=== PATIENT | female | born 1990 | race Caucasian/White ===

== ENCOUNTER → 2018-04-11 14:52 | Outpatient (CLI) | payer MEDICAID, SELFPAY ==
[2018-04-11 16:26] LABS: Basophils % 0.4 % (0.1-2.0); Eosinophils # 0.2 K/mm3 (0.0-0.4); Hematocrit 38.1 % (37.0-47.0); Hemoglobin 12.3 g/dL (12.2-16.2); Lymphocytes # 1.1 K/mm3 (0.7-4.5); Lymphocytes % 21.3 % (10-50); Mean Corpuscular HGB Conc 32.2 g/dL (31.8-35.4); Mean Corpuscular Volume 89.9 fl (81-99); Mean Platelet Volume 7.1 fl (7.4-10.4); Monocytes # 0.3 K/mm3 (0.1-1.0); Monocytes % 4.8 % (1.7-9.3); Neutrophils # 3.8 K/mm3 (1.8-7.8); Neutrophils % 70.5 % (37.0-80.0); Platelet Count 230 K/mm3 (142-424); Red Blood Count 4.23 M/mm3 (4.20-5.40); Red Cell Distribution Width 13.1 % (11.5-17.5); White Blood Count 5.4 K/mm3 (4.8-10.8)
[2018-04-11 17:12] LABS: Alanine Aminotransferase 25 U/L (12-78); Albumin Level 3.9 gm/dL (3.4-5.0); Albumin/Globulin Ratio 1.2 (1.1-1.8); Alkaline Phosphatase 47 U/L (46-116); Amylase 53 U/L (25-115); Anion Gap 14.4 mEq/L (5-15); Aspartate Amino Transferase 17 U/L (15-37); Bilirubin,Total 0.3 mg/dL (0.2-1.0); Blood Urea Nitrogen 14 mg/dL (7-18); Calcium 9.3 mg/dL (8.5-10.1); Carbon Dioxide 26 mmol/L (21.0-32.0); Chloride 104 mmol/L (98-107); Chol/HDL Ratio 2.2 (1-3.5); Cholesterol 177 mg/dL (140-200); Creatinine,Serum 0.76 mg/dL (0.55-1.02); Estimated Glomerular Filt Rate 89 ml/min (>60); GFR (African American) 108 ML/MIN (>60); Globulin 3.3 gm/dl (1.3-3.2); Glucose 82 mg/dL (74-106); HDL Cholesterol 80 mg/dL (29-89); LDL Cholesterol 91 mg/dL (0-130); Lipase 160 u/L (73-393); Potassium 4.4 mmoL/L (3.5-5.1); Sodium 140 mmol/L (136-145); T4 (Thyroxine) 8.9 ug/dl (4.7-13.3); Thyroid Stimulating Hormone 2.12 uIU/ml (0.358-3.740); Total Protein,Serum 7.2 gm/dL (6.4-8.2); Triglycerides 31 mg/dL (30-200); VLDL Cholesterol 6 mg/dL (0-40)
[2018-04-13 07:15] LABS: Hep A Ab, IgM Negative (Negative); Hepatitis B Core Antibody IgM Negative (Negative); Hepatitis B Surface Antigen Negative (Negative)
[2018-04-13 12:57] LABS: Hepatitis C Antibody <0.1 s/co ratio (0.0-0.9); Vitamin D 25 Hydroxy 47.4 ng/mL (30.0-100.0)
[2018-04-13 12:58] LABS: H. pylori Breath Test Negative (Negative)
== END ==
PROVIDERS: Visit Provider Nurse Practitioner Family
DX: R10.9 Unspecified abdominal pain (principal); R53.83 Other fatigue; Z11.59 Encounter for screening for other viral diseases; Z13.220 Encounter for screening for lipoid disorders
CPT/HCPCS: 36415; 80053; 80061; 80074; 82150; 82652; 83013; 83690; 84436; 84443; 85025

== ENCOUNTER → 2018-04-17 07:51 | Outpatient (CLI) | payer MEDICAID, SELFPAY ==
--- NOTE | 2018-04-17 07:52 | US_ITS ---
US abdomen limited HISTORY: ITS.REASON: abd pain ORDERING PHYSICIAN: Mini Flaherty PATIENT AGE: 28 years COMPARISON: None FINDINGS: PANCREAS:Unremarkable. No obvious mass or abnormal fluid collection. No ductal dilatation LIVER:No focal liver lesions demonstrated. Homogeneous echogenicity. No intrahepatic biliary ductal dilatation evident RIGHT KIDNEY:Unremarkable. Normal size and echogenicity. No hydronephrosis GALLBLADDER:Status post cholecystectomy. Common bile duct is normal at 3 mm. IMPRESSION: Prior cholecystectomy. Otherwise negative right upper quadrant ultrasound
== END ==
PROVIDERS: PCP Nurse Practitioner Family; Visit Provider Nurse Practitioner Family
DX: R10.9 Unspecified abdominal pain (principal)
CPT/HCPCS: 76700

== ENCOUNTER → 2018-08-26 11:21 | Outpatient (CLI) | payer MEDICAID, SELFPAY ==
--- NOTE | 2018-08-26 11:33 | XR_ITS ---
XR KUB HISTORY: Right flank pain ITS.REASON: pain ORDERING PHYSICIAN: Myriam Dial APRN PATIENT AGE: 28 years COMPARISON: None FINDINGS: The bowel gas pattern is unremarkable. No obvious obstruction.. No abnormal calcifications are evident. No obvious renal or ureteral calculi.. No acute bony anomalies evident. Multiple pelvic calcifications are present and may be due to phleboliths. A faint calcific density is present in the left mid abdominal region. This is felt to be somewhat more lateral than what one would expect for ureteral stone. This measures approximately 2 mm and could be due to ingested material or an artifact. Surgical clips present in the right upper quadrant and right lower quadrant. There is mild amount of retained colonic feces. IMPRESSION: Nonspecific non-acute findings
== END ==
PROVIDERS: PCP Emergency Medicine; Visit Provider Nurse Practitioner Family
DX: M54.9 Dorsalgia, unspecified (principal); R31.9 Hematuria, unspecified
CPT/HCPCS: 74018

== ENCOUNTER → 2019-01-07 08:23 | Outpatient (CLI) | payer MEDICAID, SELFPAY ==
--- NOTE | 2019-01-07 08:27 | MR_ITS ---
PROCEDURE: MR HEAD/BRAIN WO CON CLINICAL INDICATION: headache Severe headache with presyncope COMPARISON: [facility] MRI-BRAIN W/WO from 09/22/2015 TECHNIQUE: Routine multiplanar multi echo sequences are performed without gadolinium enhancement. FINDINGS: No midline shift, mass effect, intracranial hemorrhage, or hydrocephalus is evident. The cerebellopontine angle, cerebellum, and brainstem are unremarkable.. Small focus of increased T2 signal once again noted adjacent to the atrium of the left lateral ventricle unchanged. No new white matter hyperintensities are evident. May retention cyst is present in the right maxillary sinus with some mixed signal intensity. This measures 12 mm not significantly changed. There opacification of the posterior aspect of the left ethmoid sinus at 9 mm not significantly changed and could represent a small mucocele. The pituitary, optic chiasm, corpus callosum, and craniocervical junction have an unremarkable appearance. There is some minimal degenerative changes at C3-C4 with some borderline narrowing of the canal. MRI of the cervical spine may add further value. There may be some minimal contour deformity of the cord anteriorly at this level. IMPRESSION: 1. No acute intracranial findings with no significant change. 2. No change in the small periventricular T2 white matter hyperintensity along the atria of the left lateral ventricle. 3. Right maxillary retention cyst and possible small left ethmoid sinus mucocele unchanged 4. Minimal bulging of the disc at C3-C4 with borderline narrowing of the canal Dictated by: Patrice Ponce MD 01/08/2019 06:36 Electronically signed by Patrice Ponce MD in [place] 01/08/2019 06:38
== END ==
PROVIDERS: PCP Nurse Practitioner Family; Visit Provider Nurse Practitioner Family
DX: R51 Headache (principal)
CPT/HCPCS: 70551

== ENCOUNTER → 2019-01-15 12:49 | Outpatient (CLI) | payer MEDICAID, SELFPAY ==
--- NOTE | 2019-01-15 12:53 | XR_ITS ---
PROCEDURE: XR CERVICAL SPINE 5V CLINICAL INDICATION: bulging disc Neck pain, headache COMPARISON: MR HEAD/BRAIN WO CON from 01/07/2019 FINDINGS: There is slight reversal of the upper cervical lordosis at the C2-C3 level. Normal alignment. No fracture or dislocation. The disc spaces are well preserved. No obvious foraminal narrowing. No lytic or blastic change. IMPRESSION: Slight reversal of upper cervical lordosis otherwise negative cervical spine Dictated by: Patrice Ponce MD 01/15/2019 16:15 Electronically signed by Patrice Ponce MD in [place] 01/15/2019 16:15
== END ==
PROVIDERS: PCP Emergency Medicine; Visit Provider Nurse Practitioner Family
DX: M50.20 Other cervical disc displacement, unspecified cervical region (principal)
CPT/HCPCS: 72050

== ENCOUNTER 2019-02-20 08:00 | Outpatient (RCR) | payer MEDICAID, SELFPAY ==
--- NOTE | 2019-01-24 10:08 | HMH.PTOPEV ---
PT Outpatient Evaluation Rehab PT Outpatient Evaluation Start: 01/24/19 09:28 Freq: Status: Active Protocol: Document 01/24/19 09:58 KRAIG (Rec: 01/24/19 10:08 KRAIG [id number]) Electronically Signed By Jeff Bauer, PT 01/24/19 09:58 Outpatient Therapy Subjective History Subjective History Pt rpeorts h/o chronic neck pain and cervicogenic NIEVES's since 2016. Pt reports no injury history, but reports exacerbation over of s/s over the last ~2 months. Pt reports L>R sided neck pain, 'fairly constant' NIEVES's, and intermittent L UE radicular s/ s (thumb). Chief Complaint Pain,Paresthesia Symptom Type Ache,Dull,Numbness,Tingling Symptoms Relieved By Rest/Positioning Symptoms Aggravated By Lifting Prior Functional Limitations Lifting,Housework,Bending/ Stooping Current Functional Limitations Lifting,Housework,Bending/ Stooping Symptom Description Constant but Variable Level of pain today (0-10) 5 Pain scale - at its best (0-10) 3 Pain scale - at its worst (0-10) 8 Cervical Eval Palpation Cervical Muscles L Cervical Paraspinal,L Suboccipital,R CT Junction,L CT Junction,L Upper Trapezius Cervical/Thoracic Palpation Findings Tenderness,Trigger Point Posture Head/C-Spine Posture Sitting Position Flexed Head/C-Spine Posture Standing Position Neutral Position Flexibility Deficits Upper Trapezius Muscle Length (L) Moderate Tightness Levaetor Scapulae Muscle Length (L) Mild Tightness Scalene Group Muscle Length (L) Moderate Tightness Pectoralis Minor Muscle Length (R) Mild Tightness,(L) Mild Tightness Passive Joint Mobility Cervical PIVM WNL: R OA L OA R AA L AA R C2/3 L C2/3 R C3/4 L C3/4 R C4/5 L C4/5 R C5/6 L C5/6 R C6/7 L C6/7 R C7/T1 L C7/T1 AROM Cervical Spine Extension Active Range of 0-5 Motion (degrees)
== END 2019-02-20 08:05 | disposition home or self-care (01) ==
LOC: PT 08:00
PROVIDERS: Visit Provider Nurse Practitioner Family
DX: M54.2 Cervicalgia (principal)
CPT/HCPCS: 97010; 97012; 97014; 97035; 97110; 97140; 97163; G0283

== ENCOUNTER → 2019-07-01 16:54 | Outpatient (CLI) | payer MEDICAID, SELFPAY | PROVIDERS: Visit Provider Nurse Practitioner Family | DX: R10.9 Unspecified abdominal pain (principal) | CPT/HCPCS: 87086 ==

== ENCOUNTER 2019-08-04 19:32 | Emergency (ER) | payer MEDICAID, SELFPAY ==
[2019-08-04 19:33] VITALS: BP 142/86; PULSE 97; RESP 18; TEMP 36.8; O2SAT 100; BMI 23.8
--- NOTE | 2019-08-04 19:40 | XR_ITS ---
PROCEDURE: XR FOOT RT MIN 3V CLINICAL INDICATION: injury Right foot pain after twisting injury COMPARISON: No exams were available for comparison FINDINGS: No fracture or dislocation. No lytic or blastic change. There is normal mineralization. The joint spaces are well-preserved. No significant degenerative/arthritic changes. No erosive changes evident. Other findings:None. IMPRESSION: No acute findings. Dictated by: Dr. Gopal Trejo MD 08/05/2019 07:[address] Gopal Trejo MD in [place] 08/05/2019 07:14
--- NOTE | 2019-08-04 19:41 | XR_ITS ---
PROCEDURE: XR ANKLE RT MIN 3V CLINICAL INDICATION: injury Right ankle pain after twisting injury COMPARISON: No exams were available for comparison FINDINGS: The medial and lateral malleolus appear intact. The ankle mortise is normal. There is no soft tissue swelling. IMPRESSION: No acute findings. Dictated by: Dr. Gopal Trejo MD 08/05/2019 07:[address] Gopal Trejo MD in [place] 08/05/2019 07:15
--- NOTE | 2019-08-04 19:47 | HMH.EDUTC ---
[facility] Disposition Clinical Impression: Foot sprain Qualifiers: Encounter type: initial encounter Laterality: right Qualified Code(s): S93.601A - Unspecified sprain of right foot, initial encounter Ankle sprain Qualifiers: Encounter type: initial encounter Involved ligament of ankle: unspecified ligament Laterality: right Qualified Code(s): S93.401A - Sprain of unspecified ligament of right ankle, initial encounter Disposition: Home, Self-Care Condition on Discharge: Good Instructions: How To Perform RICE (Rest, Ice, Compress, Elevate), Sprain, How to Use Crutches, How to Use a Walking Boot Additional Instructions: *RICE, Rest the extremity, Ice 15-20 minutes 3-4 times daily, Compress- wear the gerardo wrap as discussed as much as possible to help reduce swelling and pain, Elevate the extremity when at rest *Gerardo wrap is for support and help control swelling, use it except in the shower. Be sure that is not to tight but not to loose either *Elevate when resting *Ibuprofen 600-800mg every 6-8 hours as needed for pain an inflammation. If need something more can take Tylenol in between doses of Ibuprofen to help Immediately follow up with your family doctor for new or worsening of symptoms, or no noticeable improvement over the next 3-5 days Call back to [facility] tomorrow for official Radiology reading of your xray Follow up with Dr Almendarez if no improvement or any worsening of symptoms Return if needed Straight to ER if any life threatening symptoms Referrals: Mini Flaherty APRN [Primary Care Provider] - As needed Anita Almendarez DPM [Staff Physician] - As needed (Call office for appointment) Time of Disposition: 20:17 Medical Decision Making - Darshan Inquiry Pt receiving controlled substance: No Darshan was queried for this patient: No Vital Signs: 08/04/19 19:33 Temperature 98.2 F Temperature Source Oral Pulse Rate [Right] 97 H Respiratory Rate 18 Blood Pressure [Right Arm] 142/86 H Blood Pressure Mean [Right Arm] 104 02 Sat by Pulse Oximetry 100 Orders (Tests/Meds): ORDERS Category Date Time Status Ankle XR -Right minimum 3 Views [XR ankle RT min 3V] Exams 08/04/19 19:41 Ordered Stat Foot XR right minimum 3 views [XR foot RT min 3V] Stat Exams 08/04/19 19:40 Ordered - Radiology Data #1 Image(s): Ankle, Foot/Toes Image Reviewed: Yes I reviewed the patient's radiology image No fracture, will place in walking boot and crutches and have patient call back to [facility] tomorrow for official Radiology reading of xray and follow up with Dr Almendarez - Reevaluation(s) Time: 19:56 Reevaluation #1: Xray notified of order for xray,awaiting patient to go to xray [facility] HPI - General Stated complaint: AO jumped in pool possible broken R foot 1600 Time Seen by Provider: 08/04/19 19:47 Mode of Arrival: Ambulatory Limitations: No Limitations Description of Symptoms (Recalled from Triage Doc. by RN): Injury to right foot and ankle HEENT Symptoms (Recalled from RN notes): No Resp Symptoms (Recalled from RN notes): No Skin Symptoms (Recalled from RN notes): No MS Symptoms (Recalled from RN notes): No Functional Status (Recalled from RN notes): na - History of Present Illness Provider Complaint: Patient state that she was playing around with her kids earlier and she jumped into the pool with them and she felt a sharp pain in her foot and ankle States that ever since she has been having pain in the top of her foot and ankle area States that accident happened around 2pm and she has been limping around on thinking it would be ok but was still having pain - Related Data Home Medications Medication Instructions Recorded Confirmed polyethylene glycol 3350 17 17 g PO DAILY 04/01/19 07/01/19 gram/dose oral powder Previous Rx's Medication Instructions Recorded fluticasone propionate 50 1 spray INTRANASAL DAILY #9.9 g 02/21/19 mcg/actuation nasal spray,suspension cephalexin 500 mg capsule 500 mg PO BID 10 D
[2019-08-04 20:19] VITALS: BP 140/80; PULSE 90; RESP 20; TEMP 36.6; O2SAT 98
== END 2019-08-04 20:29 | disposition home or self-care (01) ==
PROVIDERS: Emergency Provider Nurse Practitioner; PCP Nurse Practitioner Family
DX: S93.601A Unspecified sprain of right foot, initial encounter (principal); X50.9XXA Other and unspecified overexertion or strenuous movements or postures, initial encounter; Y93.39 Activity, other involving climbing, rappelling and jumping off; Y92.016 Swimming-pool in single-family (private) house or garden as the place of occurrence of the external cause
CPT/HCPCS: 29515; 73610; 73630; 99203

== ENCOUNTER 2019-08-13 17:02 | Emergency (ER) | payer MEDICAID, SELFPAY ==
[2019-08-13 17:13] VITALS: BP 126/77; PULSE 73; RESP 16; TEMP 37.2; O2SAT 98; BMI 23.8
--- NOTE | 2019-08-13 17:18 | HMH.EDUTC ---
[facility] [place] Disposition Clinical Impression: Eye problem Disposition: Home, Self-Care Condition on Discharge: Good Instructions: Gentamicin Ophthalmic Additional Instructions: Use eye drops as prescribed Follow up with Dr Hawley at [facility] if no improvement or immediately if any worsening of symptoms Return if needed Straight to ER if any life threatening symptoms Prescriptions: Gentamicin Sulfate [Garamycin 0.3% opth briseida 5mL] 1 - 2 ml EYE-RIGHT Q4H #1 ml Transmission Status: Pending to [facility] Referrals: Mini Flaherty APRN [Primary Care Provider] - As needed Jose Hawley [Other] - As needed Time of Disposition: 17:43 Medical Decision Making - Darshan Inquiry Pt receiving controlled substance: No Darshan was queried for this patient: No Vital Signs: 08/13/19 17:13 Temperature 99.0 F Temperature Source Oral Pulse Rate [Right Brachial] 73 Respiratory Rate 16 Blood Pressure [Right Arm] 126/77 Blood Pressure Mean [Right Arm] 93 Blood Pressure Source [Right Arm] Automatic Cuff Blood Pressure Position [Right Arm] Sitting 02 Sat by Pulse Oximetry 98 Oxygen Delivery Method Room Air - Physician Consults Physician Consulted: Marleen Time: 17:34 Reason -: Opthalmology Eval/Care Comment/Response: advised start her on Gent drops q 4h then have her follow up in the clinic if no improvement [facility] [place] HPI - General Stated complaint: AO 0603@1630 FB in R Eye Time Seen by Provider: 08/13/19 17:19 Mode of Arrival: Ambulatory Source of Information: Patient Limitations: No Limitations Description of Symptoms (Recalled from Triage Doc. by RN): PT advises she thought she had a contact stuck in her eye. Right eye appears to have a bubble on the side of her eye. Denies any problems with her vision. Just says her eye is itching HEENT Symptoms (Recalled from RN notes): Yes (possible ulcer in her eye) Resp Symptoms (Recalled from RN notes): No Skin Symptoms (Recalled from RN notes): No MS Symptoms (Recalled from RN notes): No Functional Status (Recalled from RN notes): na - History of Present Illness Provider Complaint: Patient state that she was outside watching the kids play when she started having an itching like feeling in her right eye in the corner States that shortly after the eye looked red and watery and she noticed a bubble like ulceration in the corner of her right eye States that she had her mom look at it and they was worried that it was a contact stuck and tried to dig it out and made it worse States that she called her eye doctor but they was closed so she came up to have it checked Denies changes in vision denies injury - Related Data Home Medications Medication Instructions Recorded Confirmed polyethylene glycol 3350 17 17 g PO DAILY 04/01/19 07/01/19 gram/dose oral powder Previous Rx's Medication Instructions Recorded fluticasone propionate 50 1 spray INTRANASAL DAILY #9.9 g 02/21/19 mcg/actuation nasal spray,suspension Gentamicin Sulfate [Garamycin 0.3% 1 - 2 ml EYE-RIGHT Q4H #1 ml 08/13/19 opth briseida 5mL] Allergies Allergy/AdvReac Type Severity Reaction Status Date / Time No Known Allergies Allergy Verified 08/13/19 17:17 - Worker's Comp Is this a Worker's Comp case?: No [facility] History - Hepatitis A Screen Drug use history?: No High risk sexual behaviors?: No History of sexually transmitted infection?: No Currently employed?: No Childcare worker?: No Do you have indoor plumbing?: Yes Do you have electricity?: Yes Attestation statement:: This patient has been screened for Hepatitis A risk factors. I have reviewed the patient's past medical history: Yes Medical History: Denies:: Cancer, Diabetes Mellitus Type 1, Diabetes Mellitus Type 2, MRSA Other Surgeries: Yes: Cholecystectomy, , Other Amputation: No Fractures: Yes Comment: Cyst removed from right axillary - Social History Smoking Status: Never smoker Alcohol Intake: never Substance
--- NOTE | 2019-08-13 17:18 | PC.NURSE ---
Bijal placed a call to Dr. Hawley
--- NOTE | 2019-08-13 17:19 | PC.NURSE ---
Bijal speaking with Dr. Hawley
[2019-08-13 17:47] VITALS: BP 126/77; PULSE 73; RESP 16; TEMP 37.2; O2SAT 98
== END 2019-08-13 17:50 | disposition home or self-care (01) ==
PROVIDERS: Emergency Provider Nurse Practitioner; PCP Nurse Practitioner Family
DX: H16.001 Unspecified corneal ulcer, right eye (principal); Z90.49 Acquired absence of other specified parts of digestive tract
CPT/HCPCS: 99201

== ENCOUNTER → 2019-11-26 13:29 | Outpatient (CLI) | payer MEDICAID, SELFPAY ==
--- NOTE | 2019-11-26 13:36 | US_ITS ---
PROCEDURE: US OB TRANSVAGINAL CLINICAL INDICATION: missed period Positive urine test COMPARISON: No exams were available for comparison FINDINGS: The uterus is 9 x 4 by 6 cm. The endometrium is 8 mm in thickness. No intrauterine gestational sac is evident. The left ovary contains a 3 x 3.8 cm complex cyst with internal septations. There are multiple follicles of the right ovary. No cul-de-sac fluid is evident. IMPRESSION: 1. No intrauterine gestational sac evident. 2. Complex left ovarian cyst at 3.8 cm with internal septations Dictated by: Patrice Ponce MD 11/26/2019 16:13 Patrice Ponce MD in [place] 11/26/2019 16:13
[2019-11-26 13:51] LABS: Basophils % 0.5 % (0.1-2.0); Eosinophils # 0.1 K/mm3 (0.0-0.4); Hematocrit 37.3 % (37.0-47.0); Hemoglobin 12.8 g/dL (12.2-16.2); Lymphocytes % 19.8 % (10-50); Mean Corpuscular HGB Conc 34.4 g/dL (31.8-35.4); Mean Corpuscular Hemoglobin 30.8 pg (27.0-31.2); Mean Corpuscular Volume 89.5 fl (81-99); Mean Platelet Volume 7.3 fl (7.4-10.4); Monocytes # 0.3 K/mm3 (0.1-1.0); Monocytes % 4.9 % (1.7-9.3); Neutrophils # 3.6 K/mm3 (1.8-7.8); Neutrophils % 72.8 % (37.0-80.0); Platelet Count 220 K/mm3 (142-424); Red Blood Count 4.17 M/mm3 (4.20-5.40); Red Cell Distribution Width 13.9 % (11.5-17.5)
[2019-11-26 14:31] LABS: Alanine Aminotransferase 14 U/L (12-78); Albumin Level 4.3 g/dl (3.5-5.0); Albumin/Globulin Ratio 1.5 (1.1-1.8); Alkaline Phosphatase 43 U/L (38-126); Aspartate Amino Transferase 24 U/L (14-36); Bilirubin,Total 0.4 mg/dl (0.2-1.3); Blood Urea Nitrogen 13 mg/dl (7-17); Calcium 9.3 mg/dl (8.4-10.2); Carbon Dioxide 26 mmol/L (22.0-30.0); Chloride 104 mmol/L (98-107); Chol/HDL Ratio 1.9 (1-3.5); Cholesterol 177 mg/dl (140-200); Estimated Glomerular Filt Rate 98 ml/min (>60); GFR (African American) 118 ML/MIN (>60); Globulin 2.8 g/dL (1.3-3.2); Glucose 109 mg/dl (74-100); HDL Cholesterol 91 mg/dl (40-60); Sodium 140 mmol/L (136-145); Total Protein,Serum 7.1 g/dl (6.3-8.2); Triglycerides 31 mg/dl (30-150); VLDL Cholesterol 6 mg/dL (0-40)
[2019-11-26 14:43] LABS: Direct LDL Cholesterol 82.21 mg/dL (100-129)
[2019-11-26 14:50] LABS: HCG,Quantitative < 2 mIU/ml (0-5.42); T4 (Thyroxine) 8.1 ug/dl (5.53-11.0)
[2019-11-26 15:03] LABS: Thyroid Stimulating Hormone 1.55 uIU/mL (0.465-4.68)
== END ==
PROVIDERS: Visit Provider Nurse Practitioner Family
DX: N92.6 Irregular menstruation, unspecified (principal); R11.0 Nausea; R53.83 Other fatigue; R10.9 Unspecified abdominal pain; Z98.51 Tubal ligation status
CPT/HCPCS: 36415; 76817; 80053; 80061; 82306; 84436; 84443; 84702; 85025

== ENCOUNTER 2020-01-11 10:27 | Emergency (ER) | payer MEDICAID, SELFPAY ==
[2020-01-11 11:00] VITALS: BP 124/71; PULSE 79; RESP 19; TEMP 36.9; O2SAT 97; BMI 23.8
--- NOTE | 2020-01-11 11:22 | HMH.EDUTC ---
[facility] [place] Disposition Clinical Impression: Viral upper respiratory infection Disposition: Home, Self-Care Condition on Discharge: Good Instructions: Sore Throat, Preventing the Spread of Coronavirus Discharge Instructions Additional Instructions: *Monitor Temp, Over the counter Motrin or Tylenol as directed/as needed Tylenol every 4 hours and Motrin every 6 hours (as long as your family doctor has told you that you can take it) for fever or pain. and straight to ER if unable to lower temp less than 101.0 after medication given *Warm salt water gargles may help to soothe the throat *Throat Lozenges *Warm fluids like tea with honey may help to soothe the throat *Sleep elevated *Humidifier/Vaporizer Your throat swab was sent for culture. Those results are typically sent to your primary care. Be sure to follow up in 2-3 days with your family doctor/primary care physician if no improvement so they can review those result and treat if necessary. If you don?t have a primary care doctor, I recommend you get one but in the mean time, you will have to return to a walk in clinic Follow up IMMEDIATELY for new or worsening symptoms or no Noticeable improvement over the next 48-72 hours. 911 for difficulty breathing or swallowing You was tested for today for COVID19 your test result should be back later this evening, you may call back later this evening to see if your test results are back and the result You was given a handout with instructions for Self Quarantine and Self isolation for while you wait on test results and what to do if they are positive Referrals: Mini Flaherty APRN [Primary Care Provider] - As needed Forms: Work/School Release Time of Disposition: 11:25 Medical Decision Making - Darshan Inquiry Pt receiving controlled substance: No Darshan was queried for this patient: No Vital Signs: 01/11/20 11:00 Temperature 98.4 F Temperature Source Oral Pulse Rate [Radial] 79 Respiratory Rate 19 Blood Pressure [Right Arm] 124/71 Blood Pressure Mean [Right Arm] 88 Blood Pressure Source [Right Arm] Automatic Cuff Blood Pressure Position [Right Arm] Sitting 02 Sat by Pulse Oximetry 97 Oxygen Delivery Method Room Air - Lab Data Lab results reviewed: Yes: I reviewed the patient's lab results. Orders (Tests/Meds): ORDERS Category Date Time Status Covid-19 Nasal PCR ([facility]) Routine Lab 01/11/20 11:00 Received [facility] [place] HPI - General Stated complaint: sore throat Time Seen by Provider: 01/11/20 11:22 Mode of Arrival: Ambulatory Source of Information: Patient Limitations: No Limitations Description of Symptoms (Recalled from Triage Doc. by RN): sore throat and left ear pain x 3 days. wants tested for covid HEENT Symptoms (Recalled from RN notes): Yes Resp Symptoms (Recalled from RN notes): No Skin Symptoms (Recalled from RN notes): No MS Symptoms (Recalled from RN notes): No Functional Status (Recalled from RN notes): wnl - History of Present Illness Provider Complaint: Patient states that she has been having sore throat and pain and pressure like feeling in her left ear States that she was worried that she may have strep throat or COVID States that she also wants to get checked for COVID - Related Data Home Medications Medication Instructions Recorded Confirmed No Known Home Medications 11/26/19 11/26/19 Allergies Allergy/AdvReac Type Severity Reaction Status Date / Time No Known Allergies Allergy Verified 11/26/19 11:21 - Worker's Comp Is this a Worker's Comp case?: No [facility] History - Hepatitis A Screen Drug use history?: No High risk sexual behaviors?: No History of sexually transmitted infection?: No Currently employed?: No Childcare worker?: No Do you have indoor plumbing?: Yes Do you have electricity?: Yes Attestation statement:: This patient has been screened for Hepatitis A risk factors. I have reviewed the patient's past medical history: Yes Medical History: Denies:: Zahra
[2020-01-11 11:39] VITALS: BP 124/71; PULSE 79; RESP 19; TEMP 36.9; O2SAT 97
[2020-01-11 16:39] LABS: UTC Strep Screen (Rapid) Negative (Negative)
== END 2020-01-11 11:40 | disposition home or self-care (01) ==
PROVIDERS: Emergency Provider Nurse Practitioner; PCP Nurse Practitioner Family
DX: Z20.828 Contact with and (suspected) exposure to other viral communicable diseases (principal); J06.9 Acute upper respiratory infection, unspecified
CPT/HCPCS: 87880; 99202; U0003

== ENCOUNTER 2020-02-15 11:05 | Emergency (ER) | payer MEDICAID, SELFPAY ==
[2020-02-15 11:40] VITALS: BP 136/82; PULSE 77; RESP 20; TEMP 36.7; O2SAT 98; BMI 24.6
--- NOTE | 2020-02-15 12:14 | HMH.EDUTC ---
[facility] [place] Disposition Clinical Impression: Sore throat, Viral upper respiratory infection Disposition: Home, Self-Care Condition on Discharge: Good Instructions: DI for Viral Upper Respiratory Infection -- Adult Additional Instructions: No sign of a bacterial infection. Likely viral. Viruses can take 7-14 days to run their course. Nasal saline and bulb syringe or nose Montserrat to remove nasal drainage to help with nasal congestion. Hard to eat, drink, sleep with nasal congestion so important to keep this cleaned out. Monitor temp. Tylenol or Motrin as needed for pain or fever Encourage fluids, water, Gatorade, Powerade, Pedialyte if /toddler/child Warm salt water gargles Warm fluids Sore throat lozenges Sleep elevated Humidifier/vaporizer Your throat swab was sent for culture. covid swab sent These results are typically sent to the primary care. Be sure you follow-up in 2-3 days if no improvement so we can review the results and treat if necessary Follow-up immediately for new or worsening symptoms or no noticeable improvement over the next 48-72 hours. Referrals: Mini Flaherty APRN [Primary Care Provider] - Time of Disposition: 12:17 Medical Decision Making - Dasrhan Inquiry Pt receiving controlled substance: No Vital Signs: 02/15/20 11:40 Temperature 98.1 F Temperature Source Oral Pulse Rate [Right Brachial] 77 Respiratory Rate 20 Blood Pressure [Right Arm] 136/82 Blood Pressure Mean [Right Arm] 100 Blood Pressure Source [Right Arm] Automatic Cuff Blood Pressure Position [Right Arm] Sitting 02 Sat by Pulse Oximetry 98 Oxygen Delivery Method Room Air [facility] [place] HPI - General Chief complaint: Urgent Treatment Center Stated complaint: low grade fever, headache, sore throat Time Seen by Provider: 02/15/20 12:14 Mode of Arrival: Ambulatory Source of Information: Patient Limitations: No Limitations Description of Symptoms (Recalled from Triage Doc. by RN): PATIENT C/O SORE THROAT, HEADACHE, CHEST CONGESTION WITH BURNING FEELING, AND LOW-GRADE FEVER SINCE SUNDAY HEENT Symptoms (Recalled from RN notes): Yes Resp Symptoms (Recalled from RN notes): Yes Skin Symptoms (Recalled from RN notes): No MS Symptoms (Recalled from RN notes): No Functional Status (Recalled from RN notes): WNL - History of Present Illness Provider Complaint: 29 yr old female presnts for sore throat,fever and headache since sunday. pt states at times her chest feels like it is burning, denies any other symptoms - Related Data Home Medications Medication Instructions Recorded Confirmed No Known Home Medications 11/26/19 11/26/19 Allergies Allergy/AdvReac Type Severity Reaction Status Date / Time No Known Allergies Allergy Verified 11/26/19 11:21 - Worker's Comp Is this a Worker's Comp case?: No [facility] History - Hepatitis A Screen Drug use history?: No High risk sexual behaviors?: No History of sexually transmitted infection?: No Currently employed?: No Childcare worker?: No Do you have indoor plumbing?: Yes Do you have electricity?: Yes Attestation statement:: This patient has been screened for Hepatitis A risk factors. I have reviewed the patient's past medical history: Yes Medical History: Denies:: Cancer, Diabetes Mellitus Type 1, Diabetes Mellitus Type 2, MRSA Other Surgeries: Yes: Cholecystectomy, , Other Amputation: No Fractures: Yes Comment: Cyst removed from right axillary - Social History Smoking Status: Never smoker Alcohol Intake: never Substance Use Type: denies use Occupational Status: other Housing: house Household Members: spouse Family Hx:: Cancer, Asthma ROS Obtained: Yes Systems reviewed as appropriate & no additional complaints - Constitutional Constitutional: Reports system reviewed and no additional complaints, except as docu, Reports body ache, Reports fever(s) - Eyes Eyes: Reports system reviewed and no additional complaints, except as docu - ENT Ears, Nose, Mo
[2020-02-15 12:30] VITALS: BP 136/82; PULSE 77; RESP 20; TEMP 36.7; O2SAT 98
[2020-02-15 19:30] LABS: UTC Strep Screen (Rapid) Negative (Negative)
[2020-02-15 19:31] LABS: UTC Influenza A Antigen Negative (Negative); UTC Influenza B Antigen Negative (Negative)
--- NOTE | 2020-02-15 21:16 | PC.NURSE ---
UNABLE TO REACH PATIENT BY PHONE TO GIVE POSITIVE COVID RESULTS. MESSAGE LEFT FOR NEXT SHIFT TO NOTIFY
== END 2020-02-15 12:32 | disposition home or self-care (01) ==
PROVIDERS: Emergency Provider Nurse Practitioner Family; PCP Nurse Practitioner Family
DX: U07.1 COVID-19 (principal)
CPT/HCPCS: 87804; 87880; 99202; U0003

== ENCOUNTER → 2020-04-02 14:18 | Outpatient (CLI) | payer MEDICAID, SELFPAY | PROVIDERS: Visit Provider Nurse Practitioner Family | DX: R10.9 Unspecified abdominal pain (principal); N39.0 Urinary tract infection, site not specified | CPT/HCPCS: 87086 ==

== ENCOUNTER → 2020-04-15 16:51 | Outpatient (CLI) | payer MEDICAID, SELFPAY | PROVIDERS: Visit Provider Nurse Practitioner Family | DX: R10.9 Unspecified abdominal pain (principal) | CPT/HCPCS: 87086 ==

== ENCOUNTER 2020-04-30 11:52 | Emergency (ER) | payer MEDICAID, SELFPAY ==
[2020-04-30 11:53] VITALS: BP 132/48; PULSE 87; RESP 16; TEMP 36.7; O2SAT 99; BMI 25.6
[2020-04-30 12:07] VITALS: BMI 25.6
--- NOTE | 2020-04-30 12:09 | CT_ITS ---
PROCEDURE: CT ABDOMEN PELVIS WO CON CLINICAL INDICATION: flank pain Bilateral flank pain COMPARISON: US ABDCM US abdomen complete from 04/17/2018 US US OB TRANSVAGINAL from 11/26/2019 TECHNIQUE: Axial images obtained with sagittal and coronal reformats. All CT scans at the facility use one or more dose reduction, viz: automated exposure control, ma/kV adjustment per patient size (including targeted exams where dose is matched to indication, i.e. head), or iterative reconstruction technique. FINDINGS: LOWER THORAX: No acute finding ABDOMEN & PELVIS: There is no intra-abdominal free air. There is a small amount of free fluid in the cul-de-sac within normal limits for a patient of reproductive age. Patient had prior cholecystectomy. There is a 1-2 millimeter nonobstructing right renal stone. The ureters are poorly visualized due to paucity of retroperitoneal fat. There is no right or left hydroureter. There is no obstructing left ureteral stone. Nonspecific 2 to 3 mm calcifications in the pelvis cannot be specifically localized, but cause no visible hydroureter. Correlate with urinalysis and clinical findings. The remaining solid abdominal organs have a normal appearance. There is a probable enlarged left ovary. The right ovary is not definitely identified on this unenhanced CT. Remaining pelvic organs have an unremarkable unenhanced appearance. There are scattered diverticuli in the sigmoid colon. There is no CT evidence of acute diverticulitis. There is no abdominal or pelvic adenopathy there is diffuse straightening of the normal lordosis of the lumbar spine suggesting significant muscle spasm. IMPRESSION: 1. Probable enlarged left ovary, small but normal amount of fluid in the cul-de-sac. 2. Scattered tiny calcifications which measure up to 3 millimeters in diameter without evidence of hydroureter or hydronephrosis, correlate with urinalysis and clinical findings. 3. Lumbar muscle spasm. Dictated by: Ginette Thomsa MD 04/30/2020 13:31 Ginette Thomas MD in [place] 04/30/2020 13:31
--- NOTE | 2020-04-30 12:21 | HMH.EDGENADL ---
ED Disposition Clinical Impression: Back pain Qualifiers: Back pain location: low back pain Chronicity: acute Back pain laterality: bilateral Sciatica presence: without sciatica Qualified Code(s): M54.5 - Low back pain Ovarian cyst Qualifiers: Laterality: left Qualified Code(s): N83.202 - Unspecified ovarian cyst, left side Disposition: Home, Self-Care Condition on Discharge: Good Instructions: DI for Low Back Pain, DI for Ovarian Cyst Additional Instructions: Follow-up with your primary care provider in the office, call for appointment. Tylenol or ibuprofen for pain. Referrals: Mini Flaherty APRN [Primary Care Provider] - - Critical Care Critical Care Time: No Attestation: On 04/30/20, the high probability of a clinically significant, sudden or life threatening deterioration of the following system(s) required my full and direct attention, intervention and personal management. The time I documented below is in addition to time spent performing reported procedures but includes the following listed in this critical care notation. Medical Decision Making - Darshan Inquiry Pt receiving controlled substance: No Vital Signs: 04/30/20 11:53 Temperature 98.1 F Temperature Source Oral Pulse Rate [Right Radial] 87 Respiratory Rate 16 Blood Pressure [Right Arm] 132/48 L Blood Pressure Mean [Right Arm] 76 Blood Pressure Source [Right Arm] Automatic Cuff Blood Pressure Position [Right Arm] Sitting 02 Sat by Pulse Oximetry 99 Oxygen Delivery Method Room Air - Lab Data Lab Results 04/30/20 11:58: Urine HCG, Qual Negative 04/30/20 12:10: WBC 5.0, RBC 4.43, Hgb 13.0, Hct 40.2, MCV 90.6, MCH 29.3, MCHC 32.4, RDW 13.5, Plt Count 230, MPV 7.2 L, Neut % (Auto) 71.6, Lymph % (Auto) 20.0, Falls % (Auto) 5.0, Eos % (Auto) 2.5, Baso % (Auto) 0.8, Neut # (Auto) 3.6, Lymph # (Auto) 1.0, Falls # (Auto) 0.3, Eos # (Auto) 0.1, Baso # (Auto) 0.0 04/30/20 12:10: Sodium 137, Potassium 4.2, Chloride 109 H, Carbon Dioxide 25, Anion Gap 7.2, BUN 12, Creatinine 0.70, Estimated Creat Clear 116, Estimated GFR 97, Est GFR ( Amer) 117, Glucose 96, Calcium 9.6, Total Bilirubin 0.5, AST 31, ALT 15, Alkaline Phosphatase 47, Total Protein 7.8, Albumin 4.4, Globulin 3.4 H, Albumin/Globulin Ratio 1.3 04/30/20 12:17: Urine Color Yellow, Urine Appearance Sl cloudy, Urine pH 6.0, Ur Specific Cassatt 1.025, Urine Protein Negative, Urine Glucose (UA) Negative, Urine Ketones Negative, Urine Blood Trace-i, Urine Nitrate Negative, Urine Bilirubin Negative, Urine Urobilinogen 0.2, Ur Leukocyte Esterase Trace, Urine WBC 5-10, Ur Squamous Epith Cells 10-20, Urine Bacteria 2+, Urine Mucus 1+ Result diagrams: 04/30/20 12:10 04/30/20 12:10 Orders (Tests/Meds): ORDERS Category Date Time Status CT abdomen pelvis wo con Stat Cat Scan 04/30/20 12:09 Taken Urine Culture Stat Micro 04/30/20 12:17 Received - CT Data CT Scan: Abdomen, Pelvis Time Received: 13:14 ([facility] fax) ED CT Reviewed: Yes: I have viewed the radiologist's interpretation Findings Narrative: 2.8 cm left ovarian cyst which is similar to the finding noted on the prior pelvic ultrasound. Small amount of nonspecific free fluid in the pelvis which may represent ovarian cyst leak or rupture. No other acute changes in the abdomen or pelvis. No hydronephrosis, no stone. General Adult HPI - General Chief complaint: PAIN Stated complaint: upper back and right side pain Time Seen by Provider: 04/30/20 12:21 Mode of Arrival: Ambulatory Limitations: No Limitations Description of Symptoms (Recalled from ER Triage Doc. by RN): Pt sent from pcp office for kidney stone r/o. Pt reports christo flank pain, frequent urination and blood in urine. Pt reports was treated for a uti approx 3 weeks ago, but continues to have blood in urine, flank pain and frequent urinations. - History of Present Illness HPI narrative: States that she has been having some problems with back pain in her lower th
[2020-04-30 12:24] LABS: Microscopic, Urine URINE MICROSCOPIC (MICROSCOPIC)
[2020-04-30 12:29] LABS: Urine Pregnancy, HCG Qual. Negative (Negative)
--- NOTE | 2020-04-30 12:30 | PC.NURSE ---
Patient to CT
[2020-04-30 12:31] LABS: Appearance,Urine SL CLOUDY (Clear); Bilirubin,Urine Negative (Negative); Blood, Urine TRACE-I (Negative); Color,Urine YELLOW (Yellow); Glucose,Urine (UA) Negative (Negative); Ketones,Urine Negative (Negative); Leukocyte Esterase,Urine TRACE (Negative); Nitrate,Urine Negative (Negative); Protein,Urine Negative (Negative); Specific Gravity, Urine 1.025 (1.005-1.030); Urobilinogen,Urine 0.2 EU/dl (0.2)
[2020-04-30 12:36] LABS: Chloride 109 mmol/L (98-107); Potassium 4.2 mmoL/L (3.5-5.1); Sodium 137 mmol/L (136-145)
[2020-04-30 12:36] LABS: Bacteria,Urine 2+ /lpf; Mucus,Urine 1+ /lpf
[2020-04-30 12:39] LABS: Alanine Aminotransferase 15 U/L (12-78); Albumin Level 4.4 g/dl (3.5-5.0); Albumin/Globulin Ratio 1.3 (1.1-1.8); Alkaline Phosphatase 47 U/L (38-126); Anion Gap 7.2 mEq/L (5-15); Aspartate Amino Transferase 31 U/L (14-36); Bilirubin,Total 0.5 mg/dl (0.2-1.3); Blood Urea Nitrogen 12 mg/dl (7-17); Calcium 9.6 mg/dl (8.4-10.2); Carbon Dioxide 25 mmol/L (22.0-30.0); Creatinine Clearance Estimated 116 mL/min (50-200); Estimated Glomerular Filt Rate 97 ml/min (>60); GFR (African American) 117 ML/MIN (>60); Globulin 3.4 g/dL (1.3-3.2); Glucose 96 mg/dl (74-100); Total Protein,Serum 7.8 g/dl (6.3-8.2)
[2020-04-30 12:49] LABS: Basophils % 0.8 % (0.1-2.0); Eosinophils # 0.1 K/mm3 (0.0-0.4); Eosinophils % 2.5 % (0.1-12.0); Hematocrit 40.2 % (37.0-47.0); Mean Corpuscular HGB Conc 32.4 g/dL (31.8-35.4); Mean Corpuscular Hemoglobin 29.3 pg (27.0-31.2); Mean Corpuscular Volume 90.6 fl (81-99); Mean Platelet Volume 7.2 fl (7.4-10.4); Monocytes # 0.3 K/mm3 (0.1-1.0); Neutrophils # 3.6 K/mm3 (1.8-7.8); Neutrophils % 71.6 % (37.0-80.0); Platelet Count 230 K/mm3 (142-424); Red Blood Count 4.43 M/mm3 (4.20-5.40); Red Cell Distribution Width 13.5 % (11.5-17.5)
[2020-04-30 13:32] VITALS: BP 115/74; PULSE 71; RESP 18; TEMP 36.7; O2SAT 100
== END 2020-04-30 13:32 | disposition home or self-care (01) ==
PROVIDERS: Emergency Provider Emergency Medicine; PCP Nurse Practitioner Family
DX: N83.202 Unspecified ovarian cyst, left side (principal); N30.00 Acute cystitis without hematuria
CPT/HCPCS: 74176; 80053; 81001; 81025; 85025; 87086; 99283

== ENCOUNTER → 2020-04-30 16:20 | Outpatient (CLI) | payer MEDICAID, SELFPAY | PROVIDERS: Visit Provider Nurse Practitioner Family | DX: N20.9 Urinary calculus, unspecified (principal) | CPT/HCPCS: 87086 ==

== ENCOUNTER → 2020-05-05 08:17 | Outpatient (CLI) | payer MEDICAID, SELFPAY | PROVIDERS: Visit Provider Nurse Practitioner Family | DX: R10.9 Unspecified abdominal pain (principal) ==

== ENCOUNTER 2020-08-06 09:02 | Emergency (ER) | payer MEDICAID, SELFPAY ==
[2020-08-06 09:13] VITALS: BP 111/74; PULSE 67; RESP 17; TEMP 36.7; O2SAT 100; BMI 24.7
[2020-08-06 09:19] VITALS: BP 111/74; PULSE 67; RESP 17; TEMP 36.7; O2SAT 100
--- NOTE | 2020-08-06 09:21 | HMH.EDUTC ---
[facility] [place] Disposition Clinical Impression: Poison fadumo dermatitis Disposition: Home, Self-Care Condition on Discharge: Good Instructions: Summertime Rashes: Poison [place], [place], and [place], Poisonous Plants: [place], [place], and [place]: Beware the Oils, Poison [place], Poison [place], Poison [place], DI for Poison [place] Allergy Additional Instructions: Soothing measure options: Oatmeal baths Cool, wet compresses Ice packs Topical menthol and phenol (calamine lotion) Start Oral Steriods tomorrow Make sure to bathe immediately when coming in from being in the weeds, do not take hot bath make sure the water is cool and rinse well Wash clothing immediately upon coming in and try to avoid touching them the oils from Poison Fadumo can get on our clothing and pets Return if needed Straight to ER if any life threatening symptoms Prescriptions: predniSONE [Prednisone 5mg Tab Dose-Pack] 5 mg PO UD DOSE PK 6 Days #21 pack Transmission Status: Received by [facility] Referrals: Mini Flaherty APRN [Primary Care Provider] - As needed Time of Disposition: 09:46 Medical Decision Making - Darshan Inquiry Pt receiving controlled substance: No Darshan was queried for this patient: No Vital Signs: 08/06/20 09:13 08/06/20 09:19 Temperature 98.1 F 98.1 F Temperature Source Oral Pulse Rate 67 Pulse Rate [Left] 67 Respiratory Rate 17 17 Blood Pressure 111/74 Blood Pressure [Right Arm] 111/74 Blood Pressure Mean [Right Arm] 86 02 Sat by Pulse Oximetry 100 Orders (Tests/Meds): ED MEDICATIONS Discontinued Medications Generic Name Dose Route Start Last Admin Trade Name Singh PRN Reason Stop Dose Admin Methylprednisolone Sodium Succinate 125 mg 08/06/20 09:25 08/06/20 09:29 Methylprednisolone Sod Succ 125mg Vial IM 08/06/20 09:26 125 mg ONCE ONE Administration [facility] [place] HPI - General Stated complaint: rash, possibly poison fadumo Time Seen by Provider: 08/06/20 09:19 Mode of Arrival: Ambulatory Source of Information: Patient Limitations: No Limitations Description of Symptoms (Recalled from Triage Doc. by RN): Pt states she has had poison fadumo for 3 days that has spread to her arms, legs and body. HEENT Symptoms (Recalled from RN notes): No Resp Symptoms (Recalled from RN notes): No Skin Symptoms (Recalled from RN notes): Yes MS Symptoms (Recalled from RN notes): No Functional Status (Recalled from RN notes): WNL - History of Present Illness Provider Complaint: Patient state that she was cleaning the weeds off her house the other day and then a couple days later she noticed she was starting to break out with poison fadumo State that it has continued to spread and now it has moved to her face so she came in to get treated State that last time she had to get steriods - Related Data Previous Rx's Medication Instructions Recorded predniSONE [Prednisone 5mg Tab 5 mg PO UD DOSE PK 6 Days #21 pack 08/06/20 Dose-Pack] Allergies Allergy/AdvReac Type Severity Reaction Status Date / Time No Known Allergies Allergy Verified 08/06/20 09:19 - Worker's Comp Is this a Worker's Comp case?: No [facility] History - Hepatitis A Screen Drug use history?: No High risk sexual behaviors?: No History of sexually transmitted infection?: No Currently employed?: No Childcare worker?: No Do you have indoor plumbing?: Yes Do you have electricity?: Yes Attestation statement:: This patient has been screened for Hepatitis A risk factors. I have reviewed the patient's past medical history: Yes Medical History: Denies:: Cancer, Diabetes Mellitus Type 1, Diabetes Mellitus Type 2, MRSA Other Surgeries: Yes: Cholecystectomy, , Other Amputation: No Fractures: Yes Comment: Cyst removed from right axillary - Social History Smoking Status: Never smoker Alcohol Intake: never Alcohol Intake Frequency:: holidays/special occasions only Substance Use Type: denies use Occupational Status: other Housing: house Household [facility]
== END 2020-08-06 09:52 | disposition home or self-care (01) ==
PROVIDERS: Emergency Provider Nurse Practitioner; PCP Nurse Practitioner Family
DX: L23.7 Allergic contact dermatitis due to plants, except food (principal)
CPT/HCPCS: 96372; 99202; G0463

== ENCOUNTER → 2020-09-13 15:17 | Outpatient (CLI) | payer MEDICAID, SELFPAY ==
--- NOTE | 2020-09-13 15:45 | XR_ITS ---
PROCEDURE: XR ACUTE ABDOMEN SERIES CLINICAL INDICATION: abdl pain COMPARISON: No exams were available for comparison FINDINGS: Frontal view of the chest shows no acute finding. Upright and supine views of the abdomen demonstrates a clip in the right upper quadrant. There is a mild amount of retained colonic feces. There are few air-fluid levels within the large bowel. No intestinal obstruction or free air. No acute bony anomalies or abnormal calcifications. IMPRESSION: Mild amount of retained colonic feces otherwise negative Dictated by: Patrice Ponce MD 09/13/2020 16:28 Patrice Ponce MD in [place] 09/13/2020 16:28
[2020-09-13 15:49] LABS: Basophils % 0.5 % (0.1-2.0); Eosinophils # 0.1 K/mm3 (0.0-0.4); Eosinophils % 2.1 % (0.1-12.0); Hematocrit 38.8 % (37.0-47.0); Hemoglobin 12.6 g/dL (12.2-16.2); Lymphocytes # 0.7 K/mm3 (0.7-4.5); Lymphocytes % 18.5 % (10-50); Mean Corpuscular HGB Conc 32.5 g/dL (31.8-35.4); Mean Corpuscular Hemoglobin 29.2 pg (27.0-31.2); Monocytes # 0.2 K/mm3 (0.1-1.0); Monocytes % 6.2 % (1.7-9.3); Neutrophils # 2.7 K/mm3 (1.8-7.8); Neutrophils % 72.7 % (37.0-80.0); Platelet Count 238 K/mm3 (142-424); Red Blood Count 4.32 M/mm3 (4.20-5.40); Red Cell Distribution Width 13.4 % (11.5-17.5); White Blood Count 3.7 K/mm3 (4.8-10.8)
[2020-09-13 16:31] LABS: Chloride 106 mmol/L (98-107); Potassium 4.9 mmoL/L (3.5-5.1); Sodium 140 mmol/L (136-145)
[2020-09-13 16:34] LABS: Alanine Aminotransferase 12 U/L (12-78); Albumin Level 4.3 g/dl (3.5-5.0); Albumin/Globulin Ratio 1.6 (1.1-1.8); Alkaline Phosphatase 50 U/L (38-126); Amylase 48 U/L (30-110); Anion Gap 13.9 mEq/L (5-15); Aspartate Amino Transferase 22 U/L (14-36); Bilirubin,Total 0.3 mg/dl (0.2-1.3); Blood Urea Nitrogen 16 mg/dl (7-17); Calcium 9.1 mg/dl (8.4-10.2); Carbon Dioxide 25 mmol/L (22.0-30.0); Estimated Glomerular Filt Rate 83 ml/min (>60); GFR (African American) 101 ML/MIN (>60); Globulin 2.7 g/dL (1.3-3.2); Glucose 88 mg/dl (74-100); HDL Cholesterol 82 mg/dl (40-60); Lipase 104 U/L (23-300)
[2020-09-13 16:35] LABS: Chol/HDL Ratio 2.2 (1-3.5); Cholesterol 180 mg/dl (140-200); Triglycerides 107 mg/dl (30-150); VLDL Cholesterol 21 mg/dL (0-40)
[2020-09-13 16:46] LABS: Direct LDL Cholesterol 76.51 mg/dL (100-129)
[2020-09-13 17:05] LABS: Thyroid Stimulating Hormone 1.47 uIU/mL (0.465-4.68)
[2020-09-15 19:10] LABS: H. pylori Breath Test Negative (Negative)
== END ==
PROVIDERS: Visit Provider Physician Assistant
DX: R10.9 Unspecified abdominal pain (principal)
CPT/HCPCS: 36415; 74021; 80053; 80061; 82150; 83013; 83690; 84443; 85025

== ENCOUNTER 2020-09-13 18:50 | Emergency (ER) | payer MEDICAID, SELFPAY ==
[2020-09-13 19:01] VITALS: BP 117/73; PULSE 71; RESP 17; TEMP 36.2; O2SAT 98; BMI 23.1
--- NOTE | 2020-09-13 19:09 | CT_ITS ---
PROCEDURE INFORMATION: Exam: CT Abdomen And Pelvis With Contrast Exam date and time: 09/13/2020 7:09 PM Age: 30 years old Clinical indication: Abdominal pain; Localized; Right; Prior surgery; Surgery date: 6+ months; Surgery type: Gb , c section, tubal ligation; Patient HX: RT abdomen pain and mid abdomen pain; Additional info: Abd pain TECHNIQUE: Imaging protocol: Computed tomography of the abdomen and pelvis with contrast. Radiation optimization: All CT scans at this facility use at least one of these dose optimization techniques: automated exposure control; mA and/or kV adjustment per patient size (includes targeted exams where dose is matched to clinical indication); or iterative reconstruction. Contrast material: ISOVUE; Contrast volume: 75 ml; Contrast route: IV; Other contrast: Oral, gastroview, 30; COMPARISON: CT ABDOMEN PELVIS WO CON 04/30/2020 12:34 PM FINDINGS: Lungs: Lung bases are clear. Heart: Cardiac chambers are grossly normal. Liver: Mild hepatic steatosis. Gallbladder and bile ducts: Status post cholecystectomy. Pancreas: No peripancreatic inflammatory infiltration or fluid. No ductal dilation. Spleen: No splenomegaly or splenic mass. Adrenal glands: Normal. No mass. Kidneys and ureters: There is a tiny low-density lesion within the upper right kidney which is too small to characterize but may represent a cortical cyst. Both kidneys enhance symmetrically and I do not see nephrolithiasis or hydronephrosis. Stomach and bowel: No gastric wall thickening. No small or large bowel obstruction. No mucosal thickening or inflammatory infiltration. No convincing evidence diverticulitis. Appendix: No evidence of appendicitis. No appendicolith. Intraperitoneal space: There is a small amount of hyperdense free fluid in the posterior right hemipelvis (Hounsfield units: 27.0) which may be sequelae of a ruptured hemorrhagic ovarian cyst. There is no loculated fluid collection or free air. Vasculature: Punctate phleboliths are incidentally noted in the pelvis. Lymph nodes: No enlarged lymph nodes within the retroperitoneal space or mesentery. Urinary bladder: Unremarkable as visualized. Reproductive: The uterus and left ovary are grossly unremarkable. I suspect there is a small irregular hyperdense cyst in the right ovary. Bones/joints: Unremarkable. No acute fracture. No osteolytic or blastic bone lesions. Soft tissues: Paraspinous and extracorporeal soft tissues are unremarkable. IMPRESSION: 1. Small amount of hyperdense free fluid in the posterior right hemipelvis which may be physiologic from a recently ruptured hemorrhagic ovarian cyst. Clinical correlation advised. 2. Findings suggestive of an irregular small hyperdense right ovarian cyst. Further evaluation with a pelvic ultrasound might be considered. 3. Hepatic steatosis. 4. Status post cholecystectomy. COMMENTS: Consistent with the [employer]'s Incidental Findings Committee white paper (J Am Evi Radiol 2018): Any incidental renal lesion less than 1 cm or classified as too small to characterize, or any incidental cystic renal lesion characterized as simple-appearing, is likely benign. No follow-up imaging is recommended for these lesions per consensus recommendations based on imaging criteria.
--- NOTE | 2020-09-13 19:19 | HMH.EDABDPAI ---
ED Disposition Clinical Impression: Gastritis Qualifiers: Gastritis type: unspecified gastritis Chronicity: acute Gastritis bleeding: without bleeding Qualified Code(s): K29.00 - Acute gastritis without bleeding Disposition: Still a Patient Condition on Discharge: Good Instructions: DI for Acute Abdominal Pain Referrals: Mini Flaherty APRN [Primary Care Provider] - - Critical Care Critical Care Time: No Attestation: On 09/13/20, the high probability of a clinically significant, sudden or life threatening deterioration of the following system(s) required my full and direct attention, intervention and personal management. The time I documented below is in addition to time spent performing reported procedures but includes the following listed in this critical care notation. Medical Decision Making - Medical Records Medical records reviewed: Yes: I reviewed the patient's medical records. - Darshan Inquiry Pt receiving controlled substance: No Vital Signs: 09/13/20 19:01 Temperature 97.1 F L Temperature Source Oral Pulse Rate [Right Brachial] 71 Respiratory Rate 17 Blood Pressure [Right Arm] 117/73 Blood Pressure Mean [Right Arm] 87 Blood Pressure Source [Right Arm] Automatic Cuff Blood Pressure Position [Right Arm] Sitting 02 Sat by Pulse Oximetry 98 Oxygen Delivery Method Room Air - Lab Data Lab results reviewed: Yes: I reviewed the patient's lab results. Orders (Tests/Meds): ED MEDICATIONS Discontinued Medications Generic Name Dose Route Start Last Admin Trade Name Singh PRN Reason Stop Dose Admin Hydrocodone Bitart/Acetaminophen 1 tab 09/13/20 19:18 09/13/20 19:41 Hydrocodone/Apap 5/325 Mg Tablet PO 09/13/20 19:19 1 tab ONCE ONE Administration Belladonna Alkaloids 30 ml 09/13/20 19:18 09/13/20 19:41 Gi Cocktail 60ml Udc PO 09/13/20 19:19 30 ml ONCE ONE Administration ORDERS Category Date Time Status CT abdomen pelvis w con Stat Cat Scan 09/13/20 19:09 Ordered C-Reactive Protein Stat Lab 09/13/20 15:30 Received Erythrocyte Sedimentation Rate Stat Lab 09/13/20 15:30 Received Procalcitonin Stat Lab 09/13/20 15:30 Received Medical Decision Narrative: Lab results from today reviewed. Normal kidney and liver function. Lipase normal. No evidence of pancreatitis. Benign abdominal exam. Patient does have history of gastritis with a endoscopy about a year ago. She is not currently on any omeprazole or PPIs. Believe this is acute exacerbation of this. She does have history of a gallbladder removal. Given benign exam we will treat symptomatically and reassess. Abdominal Pain HPI - General Chief Complaint: Abdominal Pain Stated Complaint: Abd pain Time Seen by Provider: 09/13/20 19:10 Mode of Arrival: Family Vehicle Limitations: No Limitations Description of Symptoms (Recalled from ER Triage Doc. by RN): pt describes onset of abd pain that began last night [place] [employer]. patient states it began midepigastric and then radiated into LUQ and back across the top of her stomach. no n/v/d at this time. pt states she saw her pcp today and subsequently had lab work drawn afterwards, no radiological tests - History of Present Illness HPI narrative: 1-year-old female with history of gastritis, cholecystectomy and bilateral tubal ligation presents emergency department with 24 hours of epigastric abdominal pain. Pain is worse with eating. She was seen by her primary care provider earlier today with normal labs including lipase, liver function tests. Reports that she has taken Pepcid, Imodium and ibuprofen without improvement of symptoms. Symptoms are constant. Reports that it starts in the epigastric area but radiates diffusely. Had diarrhea yesterday but none today. No blood in stool. No vomiting, fever, chest pain, difficulty breathing. - Related Data Previous Rx's Medication Instructions Recorded diphenhydramine HCl 25 mg capsule 25 mg
[2020-09-13 19:47] LABS: Procalcitonin 0.071 ng/mL (0.0-2.0)
--- NOTE | 2020-09-13 19:59 | PC.NURSE ---
Pt completed oral contrast, radiology notified
[2020-09-13 20:00] VITALS: BP 120/72; PULSE 62; RESP 16; O2SAT 100
[2020-09-13 20:13] LABS: Erythrocyte Sedimentation Rate 20 mm/hr (0-20)
[2020-09-13 20:22] LABS: HCG Qualitative, Serum Negative (Negative)
[2020-09-13 21:00] VITALS: BP 118/69; PULSE 65; O2SAT 99
[2020-09-13 21:58] LABS: Microscopic, Urine URINE MICROSCOPIC (MICROSCOPIC)
[2020-09-13 22:00] VITALS: BP 108/73; PULSE 68; RESP 16; O2SAT 100
[2020-09-13 22:04] LABS: Appearance,Urine CLEAR (Clear); Bilirubin,Urine Negative (Negative); Blood, Urine TRACE-I (Negative); Color,Urine YELLOW (Yellow); Glucose,Urine (UA) Negative (Negative); Ketones,Urine Negative (Negative); Leukocyte Esterase,Urine Negative (Negative); Nitrate,Urine Negative (Negative); PH,Urine 5.5 (5.0-8.5); Protein,Urine Negative (Negative); Specific Gravity, Urine <= 1.005 (1.005-1.030); Urobilinogen,Urine 0.2 EU/dl (0.2)
[2020-09-13 22:13] LABS: Bacteria,Urine Trace /lpf; WBC,Urine Occasional #/hpf (0-3)
[2020-09-13 22:43] VITALS: BP 112/76; PULSE 77; RESP 16; TEMP 36.9; O2SAT 97
== END 2020-09-13 22:48 | disposition home or self-care (01) ==
PROVIDERS: Emergency Medicine; Emergency Provider Emergency Medicine; PCP Nurse Practitioner Family
DX: K29.00 Acute gastritis without bleeding (principal)
CPT/HCPCS: 74177; 81001; 84145; 84703; 85651; 86140; 96365; 96375; 99283; Q9967

== ENCOUNTER 2020-10-21 09:18 | Emergency (ER) | payer MEDICAID, SELFPAY ==
[2020-10-21 09:18] VITALS: BP 125/84; PULSE 78; RESP 18; TEMP 36.8; O2SAT 98; BMI 24.7
[2020-10-21 10:04] LABS: UTC Strep Screen (Rapid) Positive (Negative)
--- NOTE | 2020-10-21 10:18 | HMH.EDUTC ---
[facility] [place] Clinical Impression: Strep throat Disposition: Home, Self-Care Condition on Discharge: Good Instructions: DI for Strep Throat, Strep Throat, Strep Throat (Alternative Therapy), DI for COVID-19 (Suspected or Confirmed ), Preventing the Spread of Coronavirus Discharge Instructions Additional Instructions: *Monitor Temp, Over the counter Motrin or Tylenol as directed/as needed Tylenol every 4 hours and Motrin every 6 hours (as long as your family doctor has told you that you can take it) for fever or pain. and straight to ER if unable to lower temp less than 101.0 after medication given *Warm salt water gargles may help to soothe the throat *Throat Lozenges *Warm fluids like tea with honey may help to soothe the throat *Sleep elevated *Humidifier/Vaporizer *Flonase 2 sprays in each nostril daily but be aware that it may take 2-3 days before you notice improvement *If you did not take Penicillin shot or was unable to, start taking antibiotic immediately and make sure that you take it for the FULL length of time although you should start to feel better in 24-48 hours *change toothbrush and toothpaste 24-48 hours after starting to take antibiotics so you do not reinfect yourself Monitor Temp. Tylenol and/or Ibuprofen as needed. ER if fever is no less than 101 despite alternating Tylenol and Ibuprofen * Encourage fluids, water, Gatorade, powerade, pedialyte if infant/toddler/or child *Cold fluids, popsicles and ice cream may feel good on his throat Follow up IMMEDIATELY for new or worsening symptoms or no Noticeable improvement over the next 48-72 hours. 911 for difficulty breathing or swallowing You were tested for today for COVID19 your test result should be back in the next 24-48 hours, you may call to the [facility] to see if your test results are back in the next 48 hours [phone] [facility] hours are 9am-9pm You was given a handout with instructions for Self Quarantine and Self isolation for while you wait on test results and what to do if they are positive If you are positive the Health Dept will be contacting you also Prescriptions: Amoxicillin [Amoxicillin 500mg Cap] 500 mg PO TID #30 cap Transmission Status: [facility] Fluticasone Propionate [Flonase 50mcg nasal spray 16gm] 1 spr NS DAILY #1 ml Transmission Status: Pending to [facility] methylPREDNISolone [Medrol 4mg tab] 4 mg PO DIRECTED #21 tab Transmission Status: Pending to [facility] Referrals: Linda Block PA [Primary Care Provider] - As needed Forms: Work/School Release Time of Disposition: 10:23 Medical Decision Making - Darshan Inquiry Pt receiving controlled substance: No Darshan was queried for this patient: No Vital Signs: 10/21/20 09:18 Temperature 98.3 F Temperature Source Oral Pulse Rate [Left Radial] 78 Respiratory Rate 18 Blood Pressure [Right Arm] 125/84 Blood Pressure Mean [Right Arm] 97 Blood Pressure Source [Right Arm] Automatic Cuff Blood Pressure Position [Right Arm] Sitting 02 Sat by Pulse Oximetry 98 Oxygen Delivery Method Room Air - Lab Data Lab results reviewed: Yes: I reviewed the patient's lab results. Lab Results 10/21/20 09:43: Strep Scn Rapid Clinic Positive A Orders (Tests/Meds): ORDERS Category Date Time Status Covid-19 Nasal PCR ([facility]) Routine Lab 10/21/20 09:40 Received [facility] [place] HPI - General Stated complaint: covid test, symptoms Time Seen by Provider: 10/21/20 10:18 Mode of Arrival: Ambulatory Source of Information: Patient Limitations: No Limitations Description of Symptoms (Recalled from Triage Doc. by RN): c/o sore throat, pain in the head and congestion for 4 days HEENT Symptoms (Recalled from RN notes): Yes Resp Symptoms (Recalled from RN notes): No Skin Symptoms (Recalled from RN notes): No MS Symptoms (Recalled from RN notes): No Functional Status (Recalled from RN notes): na - History of Present Illness Provider Com
[2020-10-21 10:34] VITALS: BP 125/84; PULSE 78; RESP 18; TEMP 36.8; O2SAT 98
== END 2020-10-21 10:37 | disposition home or self-care (01) ==
PROVIDERS: Emergency Provider Nurse Practitioner; PCP Physician Assistant
DX: J02.0 Streptococcal pharyngitis (principal)
CPT/HCPCS: 87880; 99202; G0463; U0003

== ENCOUNTER 2020-11-01 12:52 | Emergency (ER) | payer MEDICAID, SELFPAY ==
[2020-11-01 14:36] VITALS: BP 0/0; PULSE 0; RESP 0; TEMP -17.7; TEMP 0; O2SAT 0
--- NOTE | 2020-11-01 14:36 | PC.NURSE ---
Called pt back to room, not here. Assume pt LWBS
== END 2020-11-01 14:37 | disposition left against medical advice (07) ==
PROVIDERS: Emergency Provider Nurse Practitioner Family; PCP Physician Assistant
DX: Z53.21 Procedure and treatment not carried out due to patient leaving prior to being seen by health care provider (principal)

== ENCOUNTER 2020-11-02 09:01 | Emergency (ER) | payer MEDICAID, SELFPAY ==
--- NOTE | 2020-11-02 09:32 | HMH.EDUTC ---
[facility] [place] Clinical Impression: Strep throat, Exposure to COVID-19 virus Disposition: Home, Self-Care Condition on Discharge: Good Instructions: Strep Throat, DI for Strep Throat, Preventing the Spread of Coronavirus Discharge Instructions Additional Instructions: Drink plenty of fluids. Take tylenol or ibuprofen for pain or fever. Take the medications as directed. Follow up with your regular doctor. GO TO THE ER FOR ANY WORSENING SYMPTOMS Throw your tooth brush away and get a new one. Quarantine until you know the results of your covid-19 test. If it is positive, the health department should call you and give you further instructions about your length of Quarantine and other things. Notify your school or workplace of your results and follow their instructions regarding return to work/school. Prescriptions: Ondansetron [Zofran 4mg ODT] 4 mg PO Q8HP PRN #20 tab.rapdis PRN Reason: Nausea Transmission Status: Received by [facility] Cefdinir [Omnicef 300mg Capsule] 300 mg PO BID #20 cap Transmission Status: Received by [facility] predniSONE [Prednisone 20mg Tab] 20 mg PO BID 4 Days #8 tab Transmission Status: Re[facility] by [facility] Referrals: Linda Block PA [Primary Care Provider] - Forms: Work/School Release Time of Disposition: 09:41 Medical Decision Making - Medical Records Medical records reviewed: No: I reviewed the patient's medical records. - Darshan Inquiry Pt receiving controlled substance: No Vital Signs: 11/02/20 09:34 11/02/20 10:16 Temperature 98.1 F 98 F Temperature Source Oral Pulse Rate 81 Pulse Rate [Left] 76 Respiratory Rate 16 18 Blood Pressure 0/0 L Blood Pressure [Right Arm] 125/70 Blood Pressure Mean [Right Arm] 88 02 Sat by Pulse Oximetry 98 - Lab Data Lab results reviewed: Yes: I reviewed the patient's lab results. Lab Results 11/02/20 09:37: Strep Scn Rapid Clinic Positive A [facility] [place] - General Stated complaint: covid-symtoms Time Seen by Provider: 11/02/20 09:32 - History of Present Illness Provider Complaint: She is here with c/o sore throat and fever. She had strep throat 2 weeks ago and was treated with antibiotics. She states that she got better, but then very similar symptoms returned 2 days ago. Her had covid-19 last week. She had covid-19 last january. She has not been vaccinated. - Related Data Previous Rx's Medication Instructions Recorded diphenhydramine HCl 25 mg capsule 25 mg PO HS #30 cap 08/10/20 famotidine 20 mg tablet 20 mg PO DAILY #30 tab 08/10/20 loratadine 10 mg tablet 10 mg PO DAILY #30 tab 08/10/20 Pantoprazole Sodium [Protonix 40mg 40 mg PO HS #30 tab 09/13/20 tablet] Amoxicillin [Amoxicillin 500mg 500 mg PO TID #30 cap 10/21/20 Cap] Fluticasone Propionate [Flonase 1 spr NS DAILY #1 ml 10/21/20 50mcg nasal spray 16gm] methylPREDNISolone [Medrol 4mg 4 mg PO DIRECTED #21 tab 10/21/20 tab] Cefdinir [Omnicef 300mg Capsule] 300 mg PO BID #20 cap 11/02/20 Ondansetron [Zofran 4mg ODT] 4 mg PO Q8HP PRN #20 tab.rapdis 11/02/20 predniSONE [Prednisone 20mg 20 mg PO BID 4 Days #8 tab 11/02/20 Tab] Allergies Allergy/AdvReac Type Severity Reaction Status Date / Time No Known Allergies Allergy Verified 09/13/20 14:36 [facility] History - Hepatitis A Screen Attestation statement:: This patient has been screened for Hepatitis A risk factors. I have reviewed the patient's past medical history: Yes Medical History: Denies:: Cancer, Diabetes Mellitus Type 1, Diabetes Mellitus Type 2, MRSA Other Surgeries: Yes: Cholecystectomy, , Other Amputation: No Fractures: Yes Comment: Cyst removed from right axillary - Social History Smoking Status: Never smoker Alcohol Intake: current Alcohol Intake Frequency:: holidays/special occasions only Substance Use Type: denies use Occupational Status: other
[2020-11-02 09:34] VITALS: BP 125/70; PULSE 76; RESP 16; TEMP 36.7; O2SAT 98; BMI 23.9
[2020-11-02 10:16] VITALS: BP 0/0; PULSE 81; RESP 18; TEMP 36.6
[2020-11-02 10:16] LABS: UTC Strep Screen (Rapid) Positive (Negative)
== END 2020-11-02 10:16 | disposition home or self-care (01) ==
PROVIDERS: Emergency Provider Nurse Practitioner Family; PCP Physician Assistant
DX: J02.0 Streptococcal pharyngitis (principal); U07.1 COVID-19
CPT/HCPCS: 87880; 99203; G0463; U0003

== ENCOUNTER → 2020-12-30 18:41 | Outpatient (CLI) | payer MEDICAID, SELFPAY ==
[2020-12-30 19:03] LABS: Basophils % 0.3 % (0.1-2.0); Eosinophils # 0.1 K/mm3 (0.0-0.4); Eosinophils % 1.8 % (0.1-12.0); Hematocrit 38.5 % (37.0-47.0); Hemoglobin 12.9 g/dL (12.2-16.2); Lymphocytes # 1.2 K/mm3 (0.7-4.5); Lymphocytes % 23.1 % (10-50); Mean Corpuscular HGB Conc 33.4 g/dL (31.8-35.4); Mean Corpuscular Hemoglobin 30.2 pg (27.0-31.2); Mean Corpuscular Volume 90.4 fl (81-99); Mean Platelet Volume 8.1 fl (7.4-10.4); Monocytes # 0.3 K/mm3 (0.1-1.0); Monocytes % 6.3 % (1.7-9.3); Neutrophils # 3.5 K/mm3 (1.8-7.8); Neutrophils % 68.5 % (37.0-80.0); Platelet Count 288 K/mm3 (142-424); Red Blood Count 4.27 M/mm3 (4.20-5.40); Red Cell Distribution Width 13.3 % (11.5-17.5); White Blood Count 5.1 K/mm3 (4.8-10.8)
[2020-12-30 20:11] LABS: Alanine Aminotransferase 13 U/L (12-78); Albumin Level 4.1 g/dl (3.5-5.0); Albumin/Globulin Ratio 1.4 (1.1-1.8); Alkaline Phosphatase 45 U/L (38-126); Anion Gap 12.2 mEq/L (5-15); Aspartate Amino Transferase 24 U/L (14-36); Bilirubin,Total 0.2 mg/dl (0.2-1.3); Blood Urea Nitrogen 9 mg/dl (7-17); Calcium 9.1 mg/dl (8.4-10.2); Carbon Dioxide 22 mmol/L (22.0-30.0); Chloride 107 mmol/L (98-107); Estimated Glomerular Filt Rate 143 ml/min (>60); GFR (African American) 173 ML/MIN (>60); Globulin 2.9 g/dL (1.3-3.2); Glucose 80 mg/dl (74-100); Potassium 4.2 mmoL/L (3.5-5.1); Sodium 137 mmol/L (136-145)
[2020-12-30 20:40] LABS: Thyroid Stimulating Hormone 1.66 uIU/mL (0.465-4.68)
[2020-12-30 20:41] LABS: HCG,Quantitative < 2 mIU/ml (0-5.42)
== END ==
PROVIDERS: Visit Provider Physician Assistant
DX: N92.6 Irregular menstruation, unspecified (principal)
CPT/HCPCS: 80053; 84443; 84702; 85025

== ENCOUNTER 2021-06-04 09:00 | Emergency (ER) | payer MEDICAID, SELFPAY ==
[2021-06-04 09:12] VITALS: BP 143/77; PULSE 97; RESP 14; TEMP 36.6; O2SAT 99; BMI 24.7
[2021-06-04 09:22] LABS: UTC Influenza A Antigen Negative (Negative); UTC Influenza B Antigen Negative (Negative)
[2021-06-04 09:26] LABS: Strep Scrn Group A (Rapid) Negative (Negative)
--- NOTE | 2021-06-04 09:30 | HMH.EDUTC ---
[facility] [place]ression: Sinusitis Qualifiers: Sinusitis location: unspecified location Chronicity: acute Recurrence: non-recurrent Qualified Code(s): J01.90 - Acute sinusitis, unspecified Disposition: Home, Self-Care Condition on Discharge: Good Instructions: Sinusitis, DI for Sinusitis Additional Instructions: Drink plenty of fluids. Take tylenol or ibuprofen for pain or fever. Take the medications as directed. Follow up with your regular doctor. GO TO THE ER FOR ANY WORSENING SYMPTOMS Prescriptions: Brompheniramine/Pseudoephed/Dm [Bromfed Dm Cough Syrup] 5 ml PO Q6HP PRN #240 ml PRN Reason: Cough Transmission Status: Received by [facility] methylPREDNISolone [Medrol] 4 mg PO DIRECTED 6 Days #21 packet Transmission Status: Received by [facility] Azithromycin [Z-Magdy 250mg Tab*] 250 mg PO UD DOSE PK #6 tab Transmission Status: [facility] Referrals: Linda Block PA [Primary Care Provider] - Time of Disposition: 09:43 Medical Decision Making - Medical Records Medical records reviewed: No: I reviewed the patient's medical records. - Darshan Inquiry Pt receiving controlled substance: No Vital Signs: 06/04/21 09:12 06/04/21 09:49 Temperature 98 F 98 F Temperature Source Oral Pulse Rate 97 H Pulse Rate [Left] 97 H Respiratory Rate 14 14 Blood Pressure 143/77 H Blood Pressure [Right Arm] 143/77 H Blood Pressure Mean [Right Arm] 99 02 Sat by Pulse Oximetry 99 - Lab Data Lab results reviewed: Yes: I reviewed the patient's lab results. Lab Results 06/04/21 09:08: Group A Strep Rapid Negative 06/04/21 09:08: Influenza Type A Ag Negative, Influenza Type B Ag Negative Orders (Tests/Meds): ORDERS Category Date Time Status Strep Screen Confirmation Stat Micro 06/04/21 09:08 [place] [facility] [place] - General Stated complaint: head congestion, sore throat Time Seen by Provider: 06/04/21 09:30 Mode of Arrival: Ambulatory Source of Information: Patient Limitations: No Limitations Description of Symptoms (Recalled from Triage Doc. by RN): pt c/o congestion, NIEVES, sore throat, sneezing and cough. HEENT Symptoms (Recalled from RN notes): Yes Resp Symptoms (Recalled from RN notes): Yes Skin Symptoms (Recalled from RN notes): No MS Symptoms (Recalled from RN notes): No Functional Status (Recalled from RN notes): wnl - History of Present Illness Provider Complaint: She states that for the past 4 days she has had sinus congestion, sinus drainage, cough, and scratchy sore throat. - Related Data Previous Rx's Medication Instructions Recorded Azithromycin [Z-Magdy 250mg Tab*] 250 mg PO UD DOSE PK #6 tab 06/04/21 Brompheniramine/Pseudoephed/Dm 5 ml PO Q6HP PRN #240 ml 06/04/21 [Bromfed Dm Cough Syrup] methylPREDNISolone [Medrol] 4 mg PO DIRECTED 6 Days #21 06/04/21 packet Allergies Allergy/AdvReac Type Severity Reaction Status Date / Time No Known Allergies Allergy Verified 12/30/20 16:02 - Worker's Comp Is this a Worker's Comp case?: No [facility] History - Hepatitis A Screen Drug use history?: No High risk sexual behaviors?: No History of sexually transmitted infection?: No Currently employed?: No Childcare worker?: No Do you have indoor plumbing?: Yes Do you have electricity?: Yes Attestation statement:: This patient has been screened for Hepatitis A risk factors. I have reviewed the patient's past medical history: Yes Medical History: Denies:: Cancer, Diabetes Mellitus Type 1, Diabetes Mellitus Type 2, MRSA Other Surgeries: Yes: Cholecystectomy, , Other Amputation: No Fractures: Yes Comment: Cyst removed from right axillary - Social History Smoking Status: Never smoker Alcohol Intake: never Alcohol Intake Frequency:: holidays/special occasions only Substance Use Type: denies use Occupational Status: employed Housing: house Household Members: spouse Family Hx:: No s
[2021-06-04 09:49] VITALS: BP 143/77; PULSE 97; RESP 14; TEMP 36.6
== END 2021-06-04 09:51 | disposition home or self-care (01) ==
PROVIDERS: Emergency Provider Nurse Practitioner Family; PCP Physician Assistant
DX: J01.90 Acute sinusitis, unspecified (principal)
CPT/HCPCS: 87430; 87804; 99212; G0463

== ENCOUNTER 2021-08-13 09:03 | Emergency (ER) | payer MEDICAID, SELFPAY ==
[2021-08-13 09:33] VITALS: BP 110/72; PULSE 73; RESP 17; TEMP 36.9; O2SAT 95; BMI 24.7
--- NOTE | 2021-08-13 09:43 | HMH.EDUTC ---
[facility] [place]: Rhus dermatitis Disposition: Home, Self-Care Condition on Discharge: Good Instructions: DI for Poison Fadumo Allergy Additional Instructions: You received a steroid shot today, so start steroid pills tomorrow. May take Claritin/Zyrtec in am and Benadryl at bedtime to help with itching if needed Prescriptions: Triamcinolone Acetonide [Kenalog 0.1% cream 30gm tube] 30 gm TP TID PRN 10 Days #30 gm PRN Reason: Itching Transmission Status: [facility] methylPREDNISolone [Medrol 4mg tab] 4 mg PO DIRECTED #21 tab Transmission Status: Pending [facility] Referrals: Linda Block PA [Primary Care Provider] - Time of Disposition: 09:50 Medical Decision Making - Darshan Inquiry Pt receiving controlled substance: No Vital Signs: 08/13/21 09:33 Temperature 98.5 F Temperature Source Oral Pulse Rate [Left Radial] 73 Respiratory Rate 17 Blood Pressure [Right Arm] 110/72 Blood Pressure Mean [Right Arm] 84 02 Sat by Pulse Oximetry 95 [facility] [place] - General Stated complaint: rash head to toe Time Seen by Provider: 08/13/21 09:43 Source of Information: Patient Description of Symptoms (Recalled from Triage Doc. by RN): patient comes in today with complaints of poision fadumo that began 2 days ago. HEENT Symptoms (Recalled from RN notes): No Resp Symptoms (Recalled from RN notes): No Skin Symptoms (Recalled from RN notes): Yes MS Symptoms (Recalled from RN notes): No Functional Status (Recalled from RN notes): wnl - History of Present Illness Provider Complaint: Rash all over body X 2 days. Started after cleaning out poison fadumo from fence rows. States she did wear long sleeves, gloves, etc and washed well when she was done but has still broken out. Onset (ago): day(s) (2) Quality: burning, other (itching) Consistency: constant Relieving factors: none Exacerbating factors: none Associated symptoms: denies other symptoms Treatments prior to arrival: none - Related Data Previous Rx's Medication Instructions Recorded buspirone 5 mg tablet 5 mg PO BID #60 tab 07/06/21 diazepam 2 mg tablet 2 mg PO DAILY PRN #10 tab 07/06/21 Triamcinolone Acetonide [Kenalog 30 gm TP TID PRN 10 Days #30 gm 08/13/21 0.1% cream 30gm tube] methylPREDNISolone [Medrol 4mg 4 mg PO DIRECTED #21 tab 08/13/21 tab] Allergies Allergy/AdvReac Type Severity Reaction Status Date / Time No Known Allergies Allergy Verified 08/13/21 09:36 - Worker's Comp Is this a Worker's Comp case?: No [facility] History - Hepatitis A Screen Attestation statement:: This patient has been screened for Hepatitis A risk factors. I have reviewed the patient's past medical history: Yes Medical History: Denies:: Cancer, Diabetes Mellitus Type 1, Diabetes Mellitus Type 2, MRSA Other Surgeries: Yes: Cholecystectomy, , Other Amputation: No Fractures: Yes Comment: Cyst removed from right axillary - Social History Smoking Status: Never smoker Alcohol Intake: never Alcohol Intake Frequency:: holidays/special occasions only Substance Use Type: denies use Occupational Status: employed Housing: house Household Members: spouse Family Hx:: No significant family history ROS Obtained: Yes All systems reviewed & no additional complaints - Integumentary/Breasts Skin/Breast: Reports itching, Reports rash Physical Exam - General General appearance: alert, in no apparent distress - Head Head exam: normocephalic - ENT ENT exam: Present: normal oropharynx - Neck Neck exam: Present: normal inspection. Absent: lymphadenopathy - Chest Chest inspection: Present: normal inspection, symmetric chest wall rise - Respiratory Respiratory exam: Present: normal lung sounds bilaterally. Absent: respiratory distress, wheezes - Cardiovascular Cardiovascular exam: Present: regular rate, normal rhythm - Neurological Exam Neurological exam: Present: alert, orie
[2021-08-13 10:01] VITALS: BP 110/72; PULSE 73; RESP 17; TEMP 36.9
== END 2021-08-13 10:01 | disposition home or self-care (01) ==
PROVIDERS: Emergency Provider Physician Assistant; PCP Physician Assistant
DX: L23.7 Allergic contact dermatitis due to plants, except food (principal)
CPT/HCPCS: 96372; 99212; G0463; J1040

== ENCOUNTER 2021-10-14 08:47 | Emergency (ER) | payer MEDICAID, SELFPAY ==
[2021-10-14 08:55] VITALS: BP 134/76; PULSE 83; RESP 18; TEMP 36.4; O2SAT 98; BMI 24.2
--- NOTE | 2021-10-14 09:08 | HMH.EDUTC ---
[facility] [place] Clinical Impression: UTI (urinary tract infection) Qualifiers: Urinary tract infection type: site unspecified Hematuria presence: with hematuria Qualified Code(s): N39.0 - Urinary tract infection, site not specified Disposition: Home, Self-Care Condition on Discharge: Good Instructions: Blood in Urine, DI for Hematuria, DI for Flank Pain Additional Instructions: *Increase fluids. Water not Soda or Tea *Start antibiotic immediately and be sure to take as ordered for the FULL length of time although you should start to see improvement over the next 48 hours *Be SURE to follow up anytime for new or worsening symptoms with your family doctor. AND in 48 hours for urine culture results with your family doctor, if you do not have a doctor then you may call back to the [facility] for urine culture results and further treatment. We do recommend that you choose and establish care with a Primary Care Physician. AND follow up with them in 10-14 days to repeat UA to ensure infection is resolved and blood no longer present *Be sure to let your PCP know that we sent urine cultures from the [facility] so they can follow up to ensure that you area the on the correct antibiotic Call your doctor office and make appointment for 48 hours (2 days from today) to follow up and get the results of your urine culture and further treatment Make sure to follow up with Family Doctor and OBGYN for further evaluation and examination if symptoms persist Prescriptions: Sulfamethoxazole/Trimethoprim [Bactrim DS tablet] 1 each PO BID 3 Days #6 tab Transmission Status: [facility] Referrals: Linda Block PA [Primary Care Provider] - As needed Time of Disposition: 09:23 Medical Decision Making - Darshan Inquiry Pt receiving controlled substance: No Darshan was queried for this patient: No Vital Signs: 10/14/21 08:55 10/14/21 09:15 Temperature 97.6 F 97.6 F Temperature Source Oral Pulse Rate 83 Pulse Rate [Left Brachial] 83 Respiratory Rate 18 18 Blood Pressure 134/76 Blood Pressure [Left Arm] 134/76 Blood Pressure Mean [Left Arm] 95 Blood Pressure Source [Left Arm] Automatic Cuff Blood Pressure Position [Left Arm] Sitting 02 Sat by Pulse Oximetry 98 Oxygen Delivery Method Room Air - Lab Data Lab results reviewed: Yes: I reviewed the patient's lab results. Lab Results 10/14/21 08:54: Urine Color Yellow, Urine Appearance Clear, Urine pH 6.5, Ur Specific [place] 1.015, Urine Protein Negative, Urine Glucose (UA) Negative, Urine Ketones Negative, Urine Blood Trace, Urine Nitrate Negative, Urine Bilirubin Negative, Urine Urobilinogen 0.2, Ur Leukocyte Esterase Negative Orders (Tests/Meds): ORDERS Category Date Time Status Urine Culture Stat Micro 10/14/21 08:50 Received [facility] [place] HPI - General Stated complaint: Possible UTI Time Seen by Provider: 10/14/21 09:08 Mode of Arrival: Ambulatory Source of Information: Patient Limitations: No Limitations Description of Symptoms (Recalled from Triage Doc. by RN): PATIENT C/O PAIN TO LEFT LOWER SIDE AND SOME BLOOD IN HER URINE YESTERDAY HEENT Symptoms (Recalled from RN notes): No Resp Symptoms (Recalled from RN notes): No Skin Symptoms (Recalled from RN notes): No MS Symptoms (Recalled from RN notes): No Functional Status (Recalled from RN notes): WNL - History of Present Illness Provider Complaint: Patient states that she feels like she is having a UTI States that she has been having achy like pain in her left flank area with urgency and noticed she had some blood in her urine last night and this morning States that she has had some burning with her urination and feels like it does when she has a UTI - Related Data Home Medications Medication Instructions Recorded Confirmed Buspirone HCl [Buspar 5mg tablet] 5 mg PO DAILY 10/14/21 10/14/21 Previous Rx's Medication Instructions Recorded Sulfamethoxazole/Trimethoprim 1 each PO BID 3 Days #6 ta
[2021-10-14 09:15] VITALS: BP 134/76; PULSE 83; RESP 18; TEMP 36.4; O2SAT 98
[2021-10-14 09:15] LABS: Apearance,Urine Clear (Clear); Bilirubin,Urine Negative (Negative); Blood, Urine Trace (Negative); Color,Urine Yellow (Yellow); Glucose,Urine (UA) Negative (Negative); Ketones,Urine Negative (Negative); PH,Urine 6.5 (5.0-8.5); Protein,Urine Negative (Negative); Specific Gravity, Urine 1.015 (1.005-1.030)
[2021-10-14 09:16] LABS: UTC Leukocyte Esterase,Urine Negative (Negative); UTC Nitrate,Urine Negative (Negative); Urobilinogen,Urine 0.2 EU/dl (0.2)
== END 2021-10-14 09:30 | disposition home or self-care (01) ==
PROVIDERS: Emergency Provider Nurse Practitioner; PCP Physician Assistant
DX: N39.0 Urinary tract infection, site not specified (principal); Z79.899 Other long term (current) drug therapy
CPT/HCPCS: 81003; 87086; 99212; G0463

== ENCOUNTER → 2021-10-17 06:59 | Outpatient (CLI) | payer MEDICAID, SELFPAY | PROVIDERS: PCP Physician Assistant; Visit Provider Physician Assistant | DX: R31.9 Hematuria, unspecified (principal) | CPT/HCPCS: 87086 ==

== ENCOUNTER → 2021-10-21 07:10 | Outpatient (CLI) | payer MEDICAID, SELFPAY ==
--- NOTE | 2021-10-21 07:11 | CT_ITS ---
FINAL REPORT TECHNIQUE: Axial images through the abdomen and pelvis were performed without contrast. This study was performed with techniques to keep radiation doses as low as reasonably achievable, (ALARA). Individualized dose reduction techniques using automated exposure control or adjustment of mA and/or kV according to the patient's size were employed. CLINICAL HISTORY: left flank pain, hematuria COMPARISON: 09/13/2020 FINDINGS: ABDOMEN: The lung bases are clear. The heart size is normal. Limited images of the liver are unremarkable. The patient is status post cholecystectomy. The spleen is normal. No adrenal mass is identified. The aorta is normal in caliber. There is no significant free fluid or adenopathy. There is a single less than 3 mm nonobstructing right renal stone. There is no hydronephrosis. There is a small umbilical hernia containing fat. PELVIS: The appendix is normal. The urinary bladder is unremarkable. There is no adenopathy. There is a small amount of pelvic free fluid, may be physiologic or reactive. IMPRESSION: Nonobstructing right renal stone. Reviewed, Interpreted and Dictated by Estevan Mcdaniel III, MD Transcribed by Estefania Thomas Authenticated and . [facility]
== END ==
PROVIDERS: PCP Physician Assistant; Visit Provider Physician Assistant
DX: R10.9 Unspecified abdominal pain (principal); R31.9 Hematuria, unspecified
CPT/HCPCS: 74176

== ENCOUNTER 2021-11-09 13:08 | Emergency (ER) | payer MEDICAID, SELFPAY ==
--- NOTE | 2021-11-09 13:10 | EXP.UTC ---
Discharge Plan Disposition Patient Disposition: Home, Self-Care Prescriptions Prescriptions: New azithromycin [Zithromax] 250 mg tablet 250 mg PO UD DOSE PK Qty: 6 0RF Rx Instructions: Take two (2) tablets today, then one (1) tablet days #2 thru #5 benzonatate [benzonatate] 100 mg capsule 100 mg PO TIDP PRN (Reason: Cough) Qty: 30 0RF No Action buspirone 5 MG tablet 5 mg PO DAILY Rx Instructions: TAKE ONE TABLET BY MOUTH TWICE DAILY Referrals Follow up/Referrals: Linda Block PA [Primary Care Provider] - See instructions Activity Restrictions/Add. Instructions Additional Instructions/Restrictions: Drink plenty of fluids. Take tylenol or ibuprofen for pain or fever. Take the medications as directed. Follow up with your regular doctor. GO TO THE ER FOR ANY WORSENING SYMPTOMS Quarantine until you know the results of your covid-19 test. Notify your school or workplace of your results and follow their instructions regarding return to work/school. Clinical Impressions Clinical Impression: Sinusitis, Close exposure to COVID-19 virus Stand Alone Forms Stand Alone Forms: Work/School Release Instructions Patient Instructions: DI for Sinusitis, Coronavirus Disease 2019, Preventing the Spread of Coronavirus Discharge Instructions Discharge ED Provider: Robb Raza [facility] General Stated complaint: headache, fever, cough Time Seen by Provider: 11/09/21 13:11 History of Present Illness Provider Complaint: She states that for the past 2 days she has had sore throat, malaise and low grade fever. Related Data Home Medications Medication Instructions Recorded Confirmed buspirone 5 mg tablet 5 mg PO DAILY . 10/14/21 10/17/21 Previous Rx's Medication Instructions Recorded azithromycin 250 mg tablet 250 mg PO UD DOSE PK #6 tabs 11/09/21 (Zithromax) benzonatate 100 mg capsule 100 mg PO TIDP PRN Cough #30 caps 11/09/21 Allergies Allergy/AdvReac Type Severity Reaction Status Date / Time No Known Allergies Allergy Verified 11/09/21 13:38 [facility] Medical History Anxiety Social History Smoking Status: Never smoker second hand exposure: No alcohol intake: never substance use type: denies use current occupational status: other Travel in the last 8 weeks: None household members: spouse housing: house current occupational exposures/hazards: No ROS Obtained: Yes All systems reviewed & no additional complaints except as documented Constitutional Constitutional: Denies chills and Denies fever(s) Eyes Eyes: Denies eye discharge ENT Ears, Nose, Mouth, and Throat: Reports as per HPI Cardiovascular Cardiovascular: Denies chest pain Respiratory Respiratory: Denies chest congestion and Reports cough Gastrointestinal Gastrointestingal: Reports nausea; Denies abdominal pain, constipation, cramping, diarrhea or vomiting Musculoskeletal Musculoskeletal: Denies arthralgias Integumentary/Breasts Skin/Breast: Denies redness, Denies rash and Denies wounds Neurologic Neurologic: Denies paresthesias Physical Exam General General appearance: alert and in no apparent distress Head Head exam: atraumatic, normocephalic and normal inspection Eye Eye exam: Present normal appearance, PERRL and EOMI ENT ENT exam: Present mucous membranes moist and normal external ear exam Expanded ENT Exam TM/Canal exam: Bilateral TM: erythema and bulging Nose exam: Absent sinus tenderness Mouth exam: Present normal external inspection; Absent drooling Teeth exam: Present normal inspection Throat exam: Present tonsillar erythema, tonsillomegaly and tonsillar exudate Neck Neck exam: Present normal inspection, full ROM and trachea midline; Absent tenderness, meningismus or lymphadenopathy Chest Chest inspection: Present normal inspection and symmetric ches
[2021-11-09 13:33] VITALS: BP 115/58; PULSE 101; RESP 18; TEMP 37.2; O2SAT 98; BMI 24.7
[2021-11-09 13:41] LABS: UTC Strep Screen (Rapid) Negative (Negative)
[2021-11-09 14:18] VITALS: BP 115/58; PULSE 101; RESP 18; TEMP 37.2
== END 2021-11-09 14:20 | disposition home or self-care (01) ==
PROVIDERS: Emergency Provider Nurse Practitioner Family; PCP Physician Assistant
DX: R51.9 Headache, unspecified (principal); R50.9 Fever, unspecified; J02.9 Acute pharyngitis, unspecified; R05.9 Cough, unspecified; Z20.822 Contact with and (suspected) exposure to COVID-19
CPT/HCPCS: 87880; 99212; C9803; G0463; U0003; U0005

== ENCOUNTER 2022-01-15 08:03 | Emergency (ER) | payer MEDICAID, SELFPAY ==
[2022-01-15 08:25] VITALS: BP 148/91; PULSE 73; RESP 17; TEMP 37.5; O2SAT 96; BMI 25.6
[2022-01-15 08:33] LABS: UTC Strep Screen (Rapid) Negative (Negative)
--- NOTE | 2022-01-15 08:36 | EXP.UTC ---
Discharge Plan Disposition Patient Disposition: Home, Self-Care Condition: Good Prescriptions Prescriptions: New azithromycin [Zithromax] 250 mg tablet 250 mg PO UD DOSE PK Qty: 6 0RF Rx Instructions: Take two (2) tablets today, then one (1) tablet days #2 thru #5 benzonatate [benzonatate] 100 mg capsule 100 mg PO TIDP PRN (Reason: Cough) Qty: 30 0RF methylprednisolone 4 mg Tablets,Dose Pack 4 mg PO DIRECTED Qty: 21 0RF No Action triamcinolone acetonide 0.025 % cream 1 applic topical BID Qty: 15 0RF buspirone 5 mg tablet See Rx Instructions .ROUTE .COMPLEX Qty: 60 2RF Dose Instruction: TAKE ONE TABLET BY MOUTH TWICE DAILY Rx Instructions: TAKE ONE TABLET BY MOUTH TWICE DAILY azithromycin [Zithromax] 250 mg tablet 250 mg PO UD DOSE PK Qty: 6 0RF Rx Instructions: Take two (2) tablets today, then one (1) tablet days #2 thru #5 benzonatate [benzonatate] 100 mg capsule 100 mg PO TIDP PRN (Reason: Cough) Qty: 30 0RF Referrals Follow up/Referrals: Linda Block PA [Primary Care Provider] - See instructions Activity Restrictions/Add. Instructions Additional Instructions/Restrictions: Drink plenty of fluids. Take tylenol or ibuprofen for pain or fever. Take the medications as directed. Follow up with your regular doctor. GO TO THE ER FOR ANY WORSENING SYMPTOMS Clinical Impressions Clinical Impression: Pharyngitis, Viral syndrome Stand Alone Forms Stand Alone Forms: Work/School Release Instructions Patient Instructions: DI for Pharyngitis/Tonsillopharyngitis -- Adult, DI for Viral Syndrome Discharge ED Provider: Robb Raza [facility] HPI General Stated complaint: Sore throat,Headache Mode of Arrival: Ambulatory Source of Information: Patient Limitations: No Limitations Time Seen by Provider: 01/15/22 08:36 Description of Symptoms (Recalled from Triage Doc. by RN): pt comes in with c/o headache, sore throat, cough. symptoms began 2 days ago HEENT Symptoms (Recalled from RN notes): Yes Resp Symptoms (Recalled from RN notes): Yes Skin Symptoms (Recalled from RN notes): No MS Symptoms (Recalled from RN notes): No Functional Status (Recalled from RN notes): n/a History of Present Illness Provider Complaint: She states that for the past 2 days she has had a sore throat, body aches and she has felt bad. Related Data Previous Rx's Medication Instructions Recorded azithromycin 250 mg tablet 250 mg PO UD DOSE PK #6 tabs 11/09/21 (Zithromax) benzonatate 100 mg capsule 100 mg PO TIDP PRN Cough #30 caps 11/09/21 triamcinolone acetonide 0.025 % 1 applic topical BID #15 grams 11/17/21 topical cream buspirone 5 mg tablet See Rx Instructions .Route 01/05/22 .COMPLEX #60 tabs azithromycin 250 mg tablet 250 mg PO UD DOSE PK #6 tabs 01/15/22 (Zithromax) benzonatate 100 mg capsule 100 mg PO TIDP PRN Cough #30 caps 01/15/22 methylprednisolone 4 mg tablets in 4 mg PO DIRECTED #21 tabs 01/15/22 a dose pack Allergies Allergy/AdvReac Type Severity Reaction Status Date / Time No Known Allergies Allergy Verified 01/15/22 08:27 Worker's Comp Is this a Worker's Comp case?: No [facility] Medical History Anxiety Social History Smoking Status: Never smoker second hand exposure: No alcohol intake: never substance use type: denies use current occupational status: other Travel in the last 8 weeks: None household members: spouse housing: house current occupational exposures/hazards: No ROS Obtained: Yes All systems reviewed & no additional complaints except as documented Constitutional Constitutional: Reports chills and Reports fever(s) Eyes Eyes: Denies eye discharge ENT Ears, Nose, Mouth, and Throat: Reports as per HPI Cardiovascular Cardiovascular: Denies chest pain Respiratory Respiratory: De
[2022-01-15 09:02] VITALS: BP 148/91; PULSE 73; RESP 17; TEMP 37.5
[2022-01-15 09:04] LABS: Adenovirus,PCR Not Detected (NotDetected); Bordetella Pertussis Not Detected (NotDetected); Chlamydophila Pneumoniae, PCR Not Detected (NotDetected); Coronavirus 19, PCR Not Detected (NotDetected); Coronavirus 229E Not Detected (NotDetected); Coronavirus NL63 Not Detected (NotDetected); Coronavirus OC43 Not Detected (NotDetected); Coronovirus HKU1,PCR Not Detected (NotDetected); Human Metapneumovirus Not Detected (NotDetected); Influenza A, PCR Not Detected (NotDetected); Influenza AH1, 2009 Not Detected (NotDetected); Influenza AH1, PCR Not Detected (NotDetected); Influenza AH3,PCR Not Detected (NotDetected); Influenza B, PCR Not Detected (NotDetected); Mycoplasma Pneumoniae, PCR Not Detected (NotDetected); Parainfluenza 1, PCR Not Detected (NotDetected); Parainfluenza 2, PCR Not Detected (NotDetected); Parainfluenza 3, PCR Not Detected (NotDetected); Parainfluenza 4, PCR Not Detected (NotDetected); Respiratory Syncytial Virus Not Detected (NotDetected); Rhinovirus/Enterovirus Not Detected (NotDetected)
== END 2022-01-15 09:03 | disposition home or self-care (01) ==
PROVIDERS: Emergency Provider Nurse Practitioner Family; PCP Physician Assistant
DX: J02.9 Acute pharyngitis, unspecified (principal); R05.9 Cough, unspecified; R51.9 Headache, unspecified; M79.10 Myalgia, unspecified site; F41.9 Anxiety disorder, unspecified; Z20.822 Contact with and (suspected) exposure to COVID-19
CPT/HCPCS: 87581; 87632; 87798; 87880; 99213; C9803; G0463; U0003; U0005

== ENCOUNTER → 2022-01-16 16:04 | Outpatient (CLI) | payer MEDICAID, SELFPAY ==
[2022-01-16 18:50] LABS: HCG,Quantitative < 2 mIU/ml (0-5.42)
[2022-01-16 19:02] LABS: Thyroid Stimulating Hormone 0.75 uIU/mL (0.465-4.68)
== END ==
PROVIDERS: PCP Physician Assistant; Visit Provider Obstetrics & Gynecology
DX: N93.9 Abnormal uterine and vaginal bleeding, unspecified (principal)
CPT/HCPCS: 36415; 84443; 84702

== ENCOUNTER → 2022-04-10 11:20 | Outpatient (CLI) | payer MEDICAID, SELFPAY | PROVIDERS: PCP Student in an Organized Health Care Education/Training Program; Visit Provider Student in an Organized Health Care Education/Training Program | DX: N39.0 Urinary tract infection, site not specified (principal) | CPT/HCPCS: 87086 ==

== ENCOUNTER → 2022-04-12 15:31 | Outpatient (CLI) | payer MEDICAID, SELFPAY ==
--- NOTE | 2022-04-12 15:38 | CT_ITS ---
FINAL REPORT TECHNIQUE: Axial CT images of the abdomen and pelvis were obtained without intravenous contrast. Coronal reformatted images were also obtained.This study was performed with techniques to keep radiation doses as low as reasonably achievable (ALARA). Individualized dose reduction techniques using automated exposure control or adjustment of mA and/or kV according to the patient's size were employed. CLINICAL HISTORY: flank pain COMPARISON: 10/21/2021 FINDINGS: Abdomen: The lung bases are clear. There is a less than 3 mm nonobstructing right renal stone. Post cholecystectomy. The liver, spleen and pancreas have an unremarkable, unenhanced appearance. No mass or adenopathy is seen. No inflammatory process is identified. Pelvis: Images of the pelvis reveal no evidence of ureteral dilation or ureteral stone. There is a small amount of pelvic free fluid, likely physiologic or reactive. IMPRESSION: Small nonobstructing right renal stone. Reviewed, Interpreted and Dictated by Estevan Mcdaniel III, MD Transcribed by Nel Hollins Authenticated and [facility]
== END ==
PROVIDERS: PCP Student in an Organized Health Care Education/Training Program; Visit Provider Student in an Organized Health Care Education/Training Program
DX: R10.9 Unspecified abdominal pain (principal); R31.9 Hematuria, unspecified
CPT/HCPCS: 74176

== ENCOUNTER → 2022-10-12 11:00 | Outpatient (CLI) | payer MEDICAID, SELFPAY ==
--- NOTE | 2022-10-12 11:04 | XR_ITS ---
FINAL REPORT CLINICAL HISTORY: low back pain COMPARISON: None FINDINGS: 3 views of the lumbosacral spine were obtained. There is no fracture present. There is no malalignment. There are no significant degenerative changes. IMPRESSION: No acute process. Reviewed, Interpreted and Dictated by Estevan Mcdaniel III, MD Transcribed by Nel Hollins Authenticated and [facility]
== END ==
PROVIDERS: PCP Physician Assistant; Visit Provider Student in an Organized Health Care Education/Training Program
DX: M54.50 Low back pain, unspecified (principal)
CPT/HCPCS: 72100; 87086

== ENCOUNTER 2022-11-09 15:17 | Emergency (ER) | payer MEDICAID, SELFPAY ==
[2022-11-09 15:25] VITALS: BP 146/87; PULSE 77; RESP 20; TEMP 36.6; O2SAT 100; BMI 24.5
--- NOTE | 2022-11-09 15:30 | EXP.UTC ---
Discharge Plan Disposition Patient Disposition: Home, Self-Care Condition: Good Prescriptions Prescriptions: New amoxicillin [amoxicillin] 500 mg tablet 500 mg PO TID 10 Days Qty: 30 0RF uplfatzdjuqhxfl-wfzxlvqmv-OF [Bromfed DM] 2-30-10 mg/5 mL Syrup 5 ml PO Q6H PRN (Reason: Cough) Qty: 240 0RF ondansetron 4 mg Tablet,Disintegrating 4 mg PO Q8H PRN (Reason: Nausea) Qty: 12 0RF No Action dextroamphetamine-amphetamine [Adderall XR] 15 mg capsule,extended release 24hr 15 mg PO DAILY Referrals Follow up/Referrals: Linda Block PA [Primary Care Provider] - See instructions Activity Restrictions/Add. Instructions Additional Instructions/Restrictions: Drink plenty of fluids. Take tylenol or ibuprofen for pain or fever. Take the medications as directed. Follow up with your regular doctor. GO TO THE ER FOR ANY WORSENING SYMPTOMS Clinical Impressions Clinical Impression: Sinusitis, Acute viral syndrome Stand Alone Forms Stand Alone Forms: Work/School Release Instructions Patient Instructions: DI for Sinusitis, Coronavirus Disease 2019, Preventing the Spread of Coronavirus Discharge Instructions Discharge ED Provider: Robb Raza [facility] General Stated complaint: Sore throat,NIEVES Ears Mode of Arrival: Ambulatory Source of Information: Patient Limitations: No Limitations Time Seen by Provider: 11/09/22 15:20 Description of Symptoms (Recalled from Triage Doc. by RN): PATIENT C/O HEADACHE, DRY THROAT, RIGHT EAR PAIN, AND DIARRHEA THAT STARTED YESTERDAY AFTERNOON HEENT Symptoms (Recalled from RN notes): Yes Resp Symptoms (Recalled from RN notes): No Skin Symptoms (Recalled from RN notes): No MS Symptoms (Recalled from RN notes): No Functional Status (Recalled from RN notes): WNL History of Present Illness Provider Complaint: She states that for the past 3 days she has had right ear pain, sinus congestion, scratchy throat and a cough. Related Data Home Medications Medication Instructions Recorded Confirmed dextroamphetamine-amphetamine ER 15 mg PO DAILY . 11/09/22 11/09/22 15 mg 24hr capsule,extend release (Adderall XR) Previous Rx's Medication Instructions Recorded amoxicillin 500 mg tablet 500 mg PO TID 10 days #30 tabs 11/09/22 nxqhnyzxzoqiptm-vwuudhozfkjsvek-EK 5 ml PO Q6H PRN Cough #240 mL 11/09/22 2 mg-30 mg-10 mg/5 mL oral syrup (Bromfed DM) ondansetron 4 mg disintegrating 4 mg PO Q8H PRN Nausea #12 tabs 11/09/22 tablet Allergies Allergy/AdvReac Type Severity Reaction Status Date / Time No Known Allergies Allergy Verified 11/06/22 15:32 Worker's Comp Is this a Worker's Comp case?: No [facility] Disclaimer: The information contained in this section may have been updated after the patient was seen, as this information can be updated by other users. Medical History Abnormal uterine bleeding Anxiety Rhus dermatitis Surgical History Hx of section Hx of cholecystectomy Hx of tubal ligation Social History Smoking Status: Never smoker second hand exposure: No alcohol intake: current substance use type: denies use current occupational status: other Travel in the last 8 weeks: None household members: spouse housing: house current occupational exposures/hazards: No ROS Obtained: Yes All systems reviewed & no additional complaints except as documented Constitutional Constitutional: Reports poor appetite Eyes Eyes: Reports system reviewed and no additional complaints, except as documented ENT Ears, Nose, Mouth, and Throat: Reports as per HPI Cardiovascular Cardiovascular: Reports system reviewed and no additional complaints, except as documented and Denies chest pain Respiratory Respiratory: Denies shortness of breath, Denies randy
[2022-11-09 15:37] LABS: UTC Strep Screen (Rapid) Negative (Negative)
[2022-11-09 16:05] VITALS: BP 146/87; PULSE 77; RESP 20; TEMP 36.6; O2SAT 100
== END 2022-11-09 16:07 | disposition home or self-care (01) ==
PROVIDERS: Emergency Provider Nurse Practitioner Family; PCP Physician Assistant
DX: J01.90 Acute sinusitis, unspecified (principal); B34.9 Viral infection, unspecified; H92.03 Otalgia, bilateral; F41.9 Anxiety disorder, unspecified
CPT/HCPCS: 87880; 99212; 99214; G0463

== ENCOUNTER → 2023-02-09 08:37 | Outpatient (CLI) | payer MEDICAID, SELFPAY | PROVIDERS: PCP Physician Assistant; Visit Provider Student in an Organized Health Care Education/Training Program | DX: J02.9 Acute pharyngitis, unspecified (principal); R05.9 Cough, unspecified | CPT/HCPCS: 87070; 87635 ==

== ENCOUNTER 2023-02-25 23:35 | Emergency (ER) | payer MEDICAID, SELFPAY ==
[2023-02-25 23:36] VITALS: BP 150/84; PULSE 82; RESP 14; TEMP 36.6; O2SAT 100; BMI 26.5
--- NOTE | 2023-02-25 23:46 | ECG_ITS ---
APPROVED REPORT Exam: Resting ECG HR:71 bpm ECG Measurements Heart Rate 71 AXES AL 146 P 66 QRSd 94 QRS 77 QT 420 T 54 QTc 442 Conclusion SINUS RHYTHM NORMAL ECG UNCONFIRMED REPORT Electronically signed by : Missael Borges MD 02/26/2023 14:45:09
--- NOTE | 2023-02-25 23:55 | CT_ITS ---
PROCEDURE INFORMATION: Exam: CT Abdomen And Pelvis With Contrast Exam date and time: 02/26/2023 1:03 AM Age: 32 years old Clinical indication: Abdominal pain TECHNIQUE: Imaging protocol: Computed tomography of the abdomen and pelvis with contrast. Radiation optimization: All CT scans at this facility use at least one of these dose optimization techniques: automated exposure control; mA and/or kV adjustment per patient size (includes targeted exams where dose is matched to clinical indication); or iterative reconstruction. Contrast material: ISOVUE; Contrast volume: 75 ml; Contrast route: IV; REPORTING DATA: Count of CT and Cardiac NM exams in prior 12 months: This patient has received [address] and 0 known cardiac nuclear medicine studies in the 12 months prior to the current study. COMPARISON: 1. CT ABDOMEN PELVIS WO CON 04/12/2022 3:[address] ABDOMEN PELVIS WO CON 10/21/2021 7:[address] ABDOMEN PELVIS W CON 09/13/2020 9:25 PM FINDINGS: Liver: There is mild periportal edema which is usually related to volume status. Gallbladder and bile ducts: There is dilation of the intrahepatic biliary ducts most likely reflecting post cholecystectomy effect. Pancreas: The pancreas is of normal size and morphology, without evidence of masses, cysts, or calcifications. The pancreatic duct is not dilated. Spleen: There are multiple calcifications in the spleen most likely reflects small granulomas. Adrenal glands: The adrenal glands appear normal. Kidneys and ureters: Both kidneys are of normal size and show uniform attenuation. There are no renal masses, cysts, or calculi. The adrenal glands appear normal. Stomach and bowel: Mild fluid distention of small-bowel loops. There is large volume stool throughout the colon. Appendix: The appendix is normal. Intraperitoneal space: There is a small volume of free fluid in the pelvis. Vasculature: The abdominal aorta and its major branches appear normal without evidence of aneurysm or stenosis. The portal and mesenteric veins are patent. Lymph nodes: No enlarged or pathological lymph nodes are identified in the abdomen or pelvis. Urinary bladder: Unremarkable as visualized. Reproductive: No significant pathology. Bones/joints: The visualized osseous structures of the abdomen and pelvis appear intact and normal for patient age with no evidence of fractures or lytic or sclerotic lesions. Soft tissues: There are calcifications within the buttocks which most likely reflect injection granulomas. IMPRESSION: Small volume free fluid in the pelvis, otherwise unremarkable study.
--- NOTE | 2023-02-26 00:11 | HMH.EDGENADL ---
Discharge Plan Disposition Patient Disposition: Home, Self-Care Condition: Good Prescriptions Prescriptions: New ondansetron 4 mg tablet,disintegrating 4 mg PO Q6H PRN (Reason: nausea and vomiting) Qty: 20 0RF oxycodone 10 mg tablet,oral only,ext.rel.12 hr 10 mg PO BID Qty: 8 0RF No Action buspirone 10 mg tablet 10 mg PO BID Qty: 180 0RF dextroamphetamine-amphetamine [Adderall XR] 15 mg capsule,extended release 24hr 15 mg PO DAILY Qty: 30 0RF levocetirizine 5 mg tablet 5 mg PO DAILY Qty: 90 3RF Referrals Follow up/Referrals: Sumit Patterson MD [Physician] - See instructions Linda Block PA [Primary Care Provider] - See instructions Britton Baires MD [Physician] - See instructions Clinical Impressions Clinical Impression: Acute pancreatitis Qualifiers: Pancreatitis type: unspecified pancreatitis type Acute pancreatitis complication: no infection or necrosis Qualified Code(s): K85.90 - Acute pancreatitis without necrosis or infection, unspecified Instructions Patient Instructions: Acute Pancreatitis Discharge ED Provider: Rosalva Meier General Adult HPI General Chief complaint: Abdominal Pain Stated complaint: Upper Abdominal Pain Time Seen by Provider: 02/25/23 23:39 Mode of Arrival: Ambulatory Source of Information: Patient Limitations: No Limitations Description of Symptoms (Recalled from ER Triage Doc. by RN): pt reports several hours of epigastric pain that comes and goes but getting worse, reports episodes of vomiting, denies diarrhea. reports taking Motrin and Imodium earlier History of Present Illness HPI narrative: 32-year-old. Female with previous medical history of cholecystectomy, bilateral tubal ligation presenting with epigastric abdominal pain. Since this afternoon patient has had intermittent epigastric abdominal pain which has increased in severity and has become more constant. She has also vomited and had nausea. No blood or bile in the vomit. No stool changes or fevers but patient felt flushed when she was very nauseous. She has not had pain like this before. She did have a cholecystectomy in the past for biliary sludge and has a history of bilateral tubal ligation so does not believe she is but she has been menstruating. Denies dysuria or other concerns. Related Data Previous Rx's Medication Instructions Recorded levocetirizine 5 mg tablet 5 mg PO DAILY #90 tabs 01/02/23 buspirone 10 mg tablet 10 mg PO BID #180 tabs 02/14/23 dextroamphetamine-amphetamine ER 15 mg PO DAILY . #30 caps 02/14/23 15 mg 24hr capsule,extend release (Adderall XR) ondansetron 4 mg disintegrating 4 mg PO Q6H PRN nausea and 02/26/23 tablet vomiting #20 tabs oxycodone 10 mg tablet,crush 10 mg PO BID #8 tabs 02/26/23 resistant,extended release 12 hr Allergies Allergy/AdvReac Type Severity Reaction Status Date / Time No Known Allergies Allergy Verified 02/14/23 16:04 [facility] Disclaimer: The information contained in this section may have been updated after the patient was seen, as this information can be updated by other users. Medical History Abnormal uterine bleeding Adult ADHD Allergic rhinitis Anxiety Rhus dermatitis Surgical History Hx of section Hx of cholecystectomy Hx of tubal ligation Family History Other No significant family history Social History Smoking Status: Never smoker second hand exposure: No alcohol intake: current substance use type: denies use current occupational status: other Travel in the last 8 weeks: None household members: spouse housing: house current occupational exposures/hazards: No ROS Obtained: Yes All systems reviewed & no additional compla
[2023-02-26 00:13] LABS: Basophils % 0.4 % (0.1-2.0); Eosinophils # 0.1 K/mm3 (0.0-0.4); Eosinophils % 0.6 % (0.1-12.0); Hematocrit 42.2 % (37.0-47.0); Hemoglobin 13.8 g/dL (12.2-16.2); Lymphocytes # 0.7 K/mm3 (0.7-4.5); Lymphocytes % 9.4 % (10-50); Mean Corpuscular HGB Conc 32.8 g/dL (31.8-35.4); Mean Corpuscular Hemoglobin 29.8 pg (27.0-31.2); Mean Corpuscular Volume 90.8 fl (81-99); Mean Platelet Volume 7.3 fl (7.4-10.4); Monocytes # 0.3 K/mm3 (0.1-1.0); Monocytes % 3.4 % (1.7-9.3); Neutrophils # 6.4 K/mm3 (1.8-7.8); Neutrophils % 86.3 % (37.0-80.0); Platelet Count 226 K/mm3 (142-424); Red Blood Count 4.64 M/mm3 (4.20-5.40); Red Cell Distribution Width 13.7 % (11.5-17.5); White Blood Count 7.4 K/mm3 (4.8-10.8)
[2023-02-26 00:16] LABS: MANUAL DIFFERENTIAL MANUAL DIFFERENTIAL (MANUAL DIFF)
[2023-02-26 00:18] LABS: Urine Pregnancy, HCG Qual. Negative (Negative)
[2023-02-26 00:28] LABS: HCG Qualitative, Serum Negative (Negative)
[2023-02-26 00:30] VITALS: BP 144/83; PULSE 73; O2SAT 100
[2023-02-26 00:47] LABS: Lymphocytes % 14 % (10-50); Monocytes % 1 % (2-9); Neutrophils % 85 % (42-76); Platelet Estimate Normal; RBC Morphology Normal; Total Cells Counted 100
[2023-02-26 00:57] LABS: Alanine Aminotransferase 73 U/L (12-78); Albumin Level 3.7 g/dl (3.5-5.0); Albumin/Globulin Ratio 1.2 (1.1-1.8); Alkaline Phosphatase 57 U/L (38-126); Anion Gap 7.3 mEq/L (5-15); Aspartate Amino Transferase 118 U/L (14-36); Bilirubin,Total 0.5 mg/dl (0.2-1.3); Blood Urea Nitrogen 14 mg/dl (7-17); Calcium 7.8 mg/dl (8.4-10.2); Carbon Dioxide 20 mmol/L (22.0-30.0); Chloride 109 mmol/L (98-107); Creatinine Clearance Estimated 137 mL/min (50-200); Estimated Glomerular Filt Rate 114 ml/min (>60); GFR (African American) 138 ML/MIN (>60); Glucose 132 mg/dl (74-100); Potassium 3.3 mmoL/L (3.5-5.1); Sodium 133 mmol/L (136-145); Total Protein,Serum 6.7 g/dl (6.3-8.2)
[2023-02-26 01:05] LABS: Lipase 3868 U/L (23-300)
[2023-02-26 01:30] VITALS: BP 136/71; PULSE 78; O2SAT 100
[2023-02-26 02:50] VITALS: BP 136/71; PULSE 77; RESP 16; TEMP 36.8; O2SAT 100
== END 2023-02-26 02:57 | disposition home or self-care (01) ==
PROVIDERS: Emergency Provider Emergency Medicine; PCP Physician Assistant
DX: K85.90 Acute pancreatitis without necrosis or infection, unspecified (principal); R10.13 Epigastric pain; R11.10 Vomiting, unspecified
CPT/HCPCS: 74177; 80053; 81025; 83690; 84703; 85007; 85025; 93005; 96361; 96374; 96375; 99285; J2405; Q9967

== ENCOUNTER 2023-03-14 07:00 | Outpatient (CLI) | payer MEDICAID, SELFPAY ==
[2023-03-14 19:55] LABS: Amylase 62 U/L (30-110); Lipase 121 U/L (23-300)
== END 2023-03-14 23:59 ==
LOC: LAB.DROPOF 03-15 07:01
PROVIDERS: PCP Physician Assistant; Visit Provider Physician Assistant
DX: K85.90 Acute pancreatitis without necrosis or infection, unspecified (principal)
CPT/HCPCS: 82150; 83690

== ENCOUNTER 2023-04-20 23:44 | Outpatient (CLI) | payer MEDICAID, SELFPAY ==
[2023-04-20 19:24] LABS: Adenovirus,PCR Not Detected (NotDetected); Coronavirus 19, PCR Not Detected (NotDetected); Coronavirus 229E Not Detected (NotDetected); Coronavirus NL63 Not Detected (NotDetected); Coronavirus OC43 Not Detected (NotDetected); Coronovirus HKU1,PCR Not Detected (NotDetected); Human Metapneumovirus Not Detected (NotDetected); Influenza A, PCR Not Detected (NotDetected); Influenza AH1, 2009 Not Detected (NotDetected); Influenza AH1, PCR Not Detected (NotDetected); Influenza AH3,PCR Not Detected (NotDetected); Influenza B, PCR Not Detected (NotDetected); Parainfluenza 1, PCR Not Detected (NotDetected); Parainfluenza 2, PCR Not Detected (NotDetected); Parainfluenza 3, PCR Not Detected (NotDetected); Parainfluenza 4, PCR Not Detected (NotDetected); Respiratory Syncytial Virus Not Detected (NotDetected); Rhinovirus/Enterovirus Not Detected (NotDetected)
== END 2023-04-20 23:59 ==
LOC: LAB.DROPOF 23:44
PROVIDERS: PCP Student in an Organized Health Care Education/Training Program; Visit Provider Student in an Organized Health Care Education/Training Program
DX: R05.8 Other specified cough (principal); J02.9 Acute pharyngitis, unspecified; R09.89 Other specified symptoms and signs involving the circulatory and respiratory systems; Z20.828 Contact with and (suspected) exposure to other viral communicable diseases
CPT/HCPCS: 87070; 87632; 87635

== ENCOUNTER 2023-05-15 15:37 | Emergency (ER) | payer MEDICAID, SELFPAY ==
[2023-05-15 15:40] VITALS: BP 126/79; PULSE 78; RESP 18; TEMP 36.5; O2SAT 98; BMI 26.3
--- NOTE | 2023-05-15 16:02 | EXP.UTC ---
Discharge Plan Disposition Patient Disposition: Home, Self-Care Condition: Good Prescriptions Prescriptions: New azithromycin [Zithromax] 250 mg tablet 250 mg PO UD DOSE PK Qty: 6 0RF Rx Instructions: Take two (2) tablets today, then one (1) tablet days #2 thru #5 cxzwqdqrejvalqv-sgfdlqkir-GH [Bromfed DM] 2-30-10 mg/5 mL Syrup 5 ml PO Q6H PRN (Reason: Cough) Qty: 240 0RF ondansetron 4 mg Tablet,Disintegrating 4 mg PO Q8H PRN (Reason: Nausea) Qty: 12 0RF No Action buspirone 10 mg tablet 10 mg PO BID Qty: 180 0RF dextroamphetamine-amphetamine [Adderall XR] 15 mg capsule,extended release 24hr 15 mg PO DAILY Qty: 30 0RF levocetirizine 5 mg tablet 5 mg PO DAILY Qty: 90 3RF meclizine 25 mg tablet 25 mg PO TID PRN (Reason: dizziness) Qty: 30 0RF Referrals Follow up/Referrals: Linda Block PA [Primary Care Provider] - See instructions Activity Restrictions/Add. Instructions Additional Instructions/Restrictions: Drink plenty of fluids. Take tylenol or ibuprofen for pain or fever. Take the medications as directed. Follow up with your regular doctor. GO TO THE ER FOR ANY WORSENING SYMPTOMS Clinical Impressions Clinical Impression: Acute viral syndrome, Pharyngitis Stand Alone Forms Stand Alone Forms: Work/School Release Instructions Patient Instructions: DI for Pharyngitis/Tonsillopharyngitis -- Adult, DI for Viral Syndrome Discharge ED Provider: Robb Raza [facility] General Stated complaint: sore throat, NIEVES Mode of Arrival: Ambulatory Source of Information: Patient Limitations: No Limitations Time Seen by Provider: 05/15/23 16:02 Description of Symptoms (Recalled from Triage Doc. by RN): Pt's symptoms are sore throat, stomach ache, and fatigue. HEENT Symptoms (Recalled from RN notes): Yes Resp Symptoms (Recalled from RN notes): No Skin Symptoms (Recalled from RN notes): No MS Symptoms (Recalled from RN notes): No Functional Status (Recalled from RN notes): n/a History of Present Illness Provider Complaint: She states that she has had sore throat, gi upset and fatigue for the past 2 days. Related Data Previous Rx's Medication Instructions Recorded levocetirizine 5 mg tablet 5 mg PO DAILY #90 tabs 01/02/23 buspirone 10 mg tablet 10 mg PO BID #180 tabs 02/14/23 dextroamphetamine-amphetamine ER 15 mg PO DAILY . #30 caps 02/14/23 15 mg 24hr capsule,extend release (Adderall XR) meclizine 25 mg tablet 25 mg PO TID PRN dizziness #30 tabs 04/19/23 azithromycin 250 mg tablet 250 mg PO UD DOSE PK #6 tabs 05/15/23 (Zithromax) dlzlwyuseufdsij-ytolzxqachcggus-WL 5 ml PO Q6H PRN Cough #240 mL 05/15/23 2 mg-30 mg-10 mg/5 mL oral syrup (Bromfed DM) ondansetron 4 mg disintegrating 4 mg PO Q8H PRN Nausea #12 tabs 05/15/23 tablet Allergies Allergy/AdvReac Type Severity Reaction Status Date / Time No Known Allergies Allergy Verified 05/15/23 15:54 Worker's Comp Is this a Worker's Comp case?: No [facility] Disclaimer: The information contained in this section may have been updated after the patient was seen, as this information can be updated by other users. Medical History Abnormal uterine bleeding Acute viral syndrome Adult ADHD Allergic rhinitis Anxiety Rhus dermatitis Sinusitis Surgical History Hx of section Hx of cholecystectomy Hx of tubal ligation Family History Other No significant family history Social History Smoking Status: Never smoker second hand exposure: No alcohol intake: current substance use type: denies use current occupational status: other Travel in the last 8 weeks: None household members: spouse housing: house current occupational exposures/hazards: No ROS Obtained: Yes All systems reviewed & no additional complaints except as documented Constitutional Constitutional: Reports chills and Reports fever(s) Eyes Eyes: Denies eye discharge ENT Ears, Nose, Mouth, and Throat: Reports as per HPI Cardiovascular Cardiovascular: Denies chest pain Respiratory Respiratory: Denies chest congestion and Reports cough Gastrointestinal Gastrointestingal: Reports nausea; Denies abdominal pain, constipation, cramping, diarrhea or vomiting Musculoskeletal Musculoskeletal: Denies arthralgias Integumentary/Breasts Skin/Breast: Denies rash Neurologic Neurologic: Denies paresthesias Physical Exam General General appearance: alert and in no apparent distress Head Head exam: atraumatic, normocephalic and normal inspection Eye Eye exam: Present normal appearance, PERRL and EOMI ENT ENT exam: Present mucous membranes moist and normal external ear exam Expanded ENT Exam TM/Canal exam: Bilateral TM: erythema and bulging Nose exam: Absent sinus tenderness Mouth exam: Present normal external inspection; Absent drooling Teeth exam: Present normal inspection Throat exam: Present tonsillar erythema, tonsillomegaly and tonsillar exudate Neck Neck exam: Present normal inspection, full ROM and trachea midline; Absent tenderness, meningismus or lymphadenopathy Chest Chest inspection: Present normal inspection and symmetric chest wall rise; Absent tenderness Respiratory Respiratory exam: Present normal lung sounds bilaterally; Absent respiratory distress, wheezes or stridor Cardiovascular Cardiovascular exam: Present regular rate and normal rhythm; Absent systolic murmur or diastolic murmur Abdominal Exam Abdominal exam: Present soft and normal bowel sounds; Absent distention, tenderness, guarding, rebound or rigidity Extremities Exam Extremities exam: Present normal inspection and normal capillary refill; Absent calf tenderness Back Exam Back exam: Present normal inspection and full ROM; Absent tenderness, CVA tenderness (R) or CVA tenderness (L) Neurological Exam Neurological exam: Present alert, oriented X3 and CN II-XII intact Psychiatric Psychiatric exam: Present normal affect and normal mood Skin Skin exam: Present warm, dry, intact and normal color Medical Decision Making Medical Records Medical records reviewed: No I reviewed the patient's medical records. Darshan Inquiry Pt receiving controlled substance: No Vital Signs: 05/15/23 15:40 Temperature 97.7 F Temperature Source Oral Pulse Rate [Right Radial] 78 Respiratory Rate 18 Blood Pressure [Right Arm] 126/79 Blood Pressure Mean [Right Arm] 94 Blood Pressure Source [Right Arm] Automatic Cuff Blood Pressure Position [Right Arm] Sitting 02 Sat by Pulse Oximetry 98 Oxygen Delivery Method Room Air Lab Data Lab results reviewed: Yes I reviewed the patient's lab results.
[2023-05-15 16:08] LABS: UTC Strep Screen (Rapid) Negative (Negative)
[2023-05-15 16:09] LABS: UTC Influenza A Antigen Negative (Negative); UTC Influenza B Antigen Negative (Negative)
[2023-05-15 16:30] VITALS: BP 126/79; PULSE 78; RESP 18; TEMP 36.5; O2SAT 98
[2023-05-15 16:33] LABS: Coronavirus 19, PCR Not Detected (NotDetected); Influenza A, PCR Not Detected (NotDetected); Influenza B, PCR Not Detected (NotDetected)
== END 2023-05-15 16:30 | disposition home or self-care (01) ==
PROVIDERS: Emergency Provider Nurse Practitioner Family; PCP Physician Assistant
DX: J02.9 Acute pharyngitis, unspecified (principal); R11.0 Nausea; R05.9 Cough, unspecified; R53.83 Other fatigue
CPT/HCPCS: 87636; 87804; 87880; 99212; 99214; G0463

== ENCOUNTER 2023-06-11 12:59 | Outpatient (CLI) | payer MEDICAID, SELFPAY ==
[2023-06-11 14:17] LABS: HCG,Quantitative < 2 mIU/ml (0-5.42)
[2023-06-11 14:30] LABS: Thyroid Stimulating Hormone 1.11 uIU/mL (0.465-4.68)
[2023-06-12 08:58] LABS: Prolactin 13.2 ng/mL (4.8-33.4)
== END 2023-06-11 23:59 ==
LOC: LAB 12:59
PROVIDERS: PCP Physician Assistant; Visit Provider Obstetrics & Gynecology
DX: N64.52 Nipple discharge (principal); Z32.00 Encounter for pregnancy test, result unknown
CPT/HCPCS: 36415; 84146; 84443; 84702

== ENCOUNTER 2023-08-14 14:14 | Outpatient (CLI) | payer MEDICAID, SELFPAY ==
[2023-08-14 18:18] LABS: Basophils % 0.6 % (0.1-2.0); Eosinophils # 0.2 K/mm3 (0.0-0.4); Eosinophils % 2.9 % (0.1-12.0); Hematocrit 41.7 % (37.0-47.0); Hemoglobin 13.5 g/dL (12.2-16.2); Lymphocytes % 13.7 % (10-50); Mean Corpuscular HGB Conc 32.4 g/dL (31.8-35.4); Mean Corpuscular Volume 92.5 fl (81-99); Mean Platelet Volume 8.1 fl (7.4-10.4); Monocytes # 0.3 K/mm3 (0.1-1.0); Monocytes % 4.4 % (1.7-9.3); Neutrophils # 5.5 K/mm3 (1.8-7.8); Neutrophils % 78.5 % (37.0-80.0); Platelet Count 263 K/mm3 (142-424); Red Cell Distribution Width 14.1 % (11.5-17.5)
[2023-08-14 18:43] LABS: Hemoglobin A1C 4.8 % (4.0-6.0)
[2023-08-14 18:48] LABS: Alanine Aminotransferase 20 U/L (12-78); Albumin Level 4.4 g/dl (3.5-5.0); Albumin/Globulin Ratio 1.5 (1.1-1.8); Alkaline Phosphatase 43 U/L (38-126); Amylase 62 U/L (30-110); Anion Gap 15.8 mEq/L (5-15); Aspartate Amino Transferase 27 U/L (14-36); Bilirubin,Total 0.4 mg/dl (0.2-1.3); Blood Urea Nitrogen 14 mg/dl (7-17); Calcium 9.7 mg/dl (8.4-10.2); Carbon Dioxide 22 mmol/L (22.0-30.0); Chloride 106 mmol/L (98-107); Chol/HDL Ratio 2.4 (1-3.5); Cholesterol 207 mg/dl (140-200); Estimated Glomerular Filt Rate 82 ml/min (>60); GFR (African American) 99 ML/MIN (>60); Globulin 2.9 g/dL (1.3-3.2); Glucose 89 mg/dl (74-100); HDL Cholesterol 85 mg/dl (40-60); Lipase 97 U/L (23-300); Potassium 3.8 mmoL/L (3.5-5.1); Sodium 140 mmol/L (136-145); Total Protein,Serum 7.3 g/dl (6.3-8.2); Triglycerides 45 mg/dl (30-150); VLDL Cholesterol 9 mg/dL (0-40)
[2023-08-14 18:59] LABS: Direct LDL Cholesterol 87.74 mg/dL (100-129)
[2023-08-14 19:09] LABS: 25-OH Vitamin D, Total 52.5 ng/mL (30-100)
[2023-08-14 19:20] LABS: Thyroid Stimulating Hormone 1.45 uIU/mL (0.465-4.68)
== END 2023-08-14 23:59 | disposition home or self-care (01) ==
LOC: LAB.DROPOF 08-15 14:15
PROVIDERS: PCP Physician Assistant; Visit Provider Physician Assistant
DX: K85.90 Acute pancreatitis without necrosis or infection, unspecified (principal); R10.13 Epigastric pain; R73.09 Other abnormal glucose
CPT/HCPCS: 80050; 80053; 80061; 82150; 82306; 83036; 83690; 84443; 85025

== ENCOUNTER 2023-09-03 07:35 | Outpatient (CLI) | payer MEDICAID, SELFPAY ==
--- NOTE | 2023-09-03 07:35 | MR_ITS ---
FINAL REPORT CLINICAL HISTORY: pancreas protocol COMPARISON: None FINDINGS: Multiplanar MR imaging of the abdomen was performed without and with contrast. Status post cholecystectomy. Solid organs are unremarkable. There is no evidence of pancreatic mass. No pancreatic or biliary ductal dilatation is noted. No other mass or adenopathy is identified. No abnormal fluid collection is seen. No abnormal contrast enhancement is seen on the postcontrast images. IMPRESSION: Unremarkable exam. Reviewed, Interpreted and Dictated by Reymundo Jimenez MD Transcribed by Nel Hollins Authenticated and [facility]
[2023-09-03] MEDS: SODIUM CHLORIDE 0.9% 10ML SYR (RAD ONLY) 10 ML IV (08:43)
[2023-09-03] MEDS: GADOTERIDOL INJ 20ML SYRINGE 14 ML IV (08:43)
[2023-09-03] MEDS: 0.9 % SODIUM CHLORIDE 50 ML VIAL 25 ML IV (08:43)
== END 2023-09-03 23:59 | disposition home or self-care (01) ==
LOC: RAD 07:35
PROVIDERS: PCP Physician Assistant; Visit Provider Physician Assistant
DX: K85.90 Acute pancreatitis without necrosis or infection, unspecified (principal); R73.9 Hyperglycemia, unspecified
CPT/HCPCS: 74183; 76376; A9576

== ENCOUNTER 2023-09-24 11:10 | Outpatient (CLI) | payer MEDICAID, SELFPAY ==
--- NOTE | 2023-09-24 11:14 | XR_ITS ---
FINAL REPORT CLINICAL HISTORY: right foot injury FINDINGS: RIGHT FOOT 3 views of the right foot were obtained. There is no acute fracture or dislocation. Visualized joint spaces are normally aligned. Soft tissues are unremarkable. IMPRESSION: No acute bony abnormality. Reviewed, Interpreted and Dictated by Yeimi Holly MD Transcribed by Henny Ventura Authenticated and . [facility]
== END 2023-09-24 23:59 | disposition home or self-care (01) ==
LOC: RAD 11:11
PROVIDERS: PCP Physician Assistant; Visit Provider Physician Assistant
DX: M79.671 Pain in right foot (principal)
CPT/HCPCS: 73630

== ENCOUNTER 2024-01-22 16:30 | Outpatient (CLI) | payer MEDICAID, SELFPAY ==
[2024-01-22 19:05] LABS: Basophils % 0.8 % (0.1-2.0); Eosinophils # 0.2 K/mm3 (0.0-0.4); Eosinophils % 3.8 % (0.1-12.0); Hematocrit 38.6 % (37.0-47.0); Hemoglobin 13.2 g/dL (12.2-16.2); Lymphocytes # 1.1 K/mm3 (0.7-4.5); Lymphocytes % 23.7 % (10-50); Mean Corpuscular HGB Conc 34.1 g/dL (31.8-35.4); Mean Corpuscular Hemoglobin 29.9 pg (27.0-31.2); Mean Corpuscular Volume 87.8 fl (81-99); Mean Platelet Volume 8.5 fl (7.4-10.4); Monocytes # 0.3 K/mm3 (0.1-1.0); Monocytes % 7.2 % (1.7-9.3); Neutrophils # 3.1 K/mm3 (1.8-7.8); Neutrophils % 64.6 % (37.0-80.0); Platelet Count 263 K/mm3 (142-424); Red Cell Distribution Width 14.2 % (11.5-17.5); White Blood Count 4.8 K/mm3 (4.8-10.8)
[2024-01-22 19:28] LABS: Alanine Aminotransferase 15 U/L (12-78); Albumin Level 4.2 g/dl (3.5-5.0); Albumin/Globulin Ratio 1.7 (1.1-1.8); Alkaline Phosphatase 30 U/L (38-126); Amylase 58 U/L (30-110); Anion Gap 12.3 mEq/L (5-15); Aspartate Amino Transferase 25 U/L (14-36); Bilirubin,Total 0.5 mg/dl (0.2-1.3); Blood Urea Nitrogen 12 mg/dl (7-17); Calcium 8.9 mg/dl (8.4-10.2); Carbon Dioxide 20 mmol/L (22.0-30.0); Chloride 108 mmol/L (98-107); Estimated Glomerular Filt Rate 114 ml/min (>60); GFR (African American) 138 ML/MIN (>60); Globulin 2.5 g/dL (1.3-3.2); Glucose 79 mg/dl (74-100); Lipase 115 U/L (23-300); Potassium 4.3 mmoL/L (3.5-5.1); Sodium 136 mmol/L (136-145); Total Protein,Serum 6.7 g/dl (6.3-8.2)
== END 2024-01-22 23:59 | disposition home or self-care (01) ==
LOC: LAB.DROPOF 01-23 11:21
PROVIDERS: PCP Nurse Practitioner Family; Visit Provider Nurse Practitioner Family
DX: K85.90 Acute pancreatitis without necrosis or infection, unspecified (principal); K21.9 Gastro-esophageal reflux disease without esophagitis; R13.10 Dysphagia, unspecified
CPT/HCPCS: 80053; 82150; 83690; 85025

== ENCOUNTER 2024-01-29 15:48 | Outpatient (CLI) | payer MEDICAID, SELFPAY | END 2024-01-29 23:59 | disposition home or self-care (01) | LOC: LAB.DROPOF 01-30 14:14 | PROVIDERS: PCP Student in an Organized Health Care Education/Training Program; Visit Provider Student in an Organized Health Care Education/Training Program | DX: J02.9 Acute pharyngitis, unspecified (principal); R09.81 Nasal congestion | CPT/HCPCS: 87070; 87635 ==

== ENCOUNTER 2024-02-29 08:11 | Outpatient (CLI) | payer MEDICAID, SELFPAY ==
[2024-03-03 05:30] LABS: Pancreatic Elastase, Fecal >800 (>200)
== END 2024-02-29 23:59 | disposition home or self-care (01) ==
PROVIDERS: PCP Nurse Practitioner Family; Visit Provider Internal Medicine Gastroenterology
DX: R14.0 Abdominal distension (gaseous) (principal); K85.90 Acute pancreatitis without necrosis or infection, unspecified
CPT/HCPCS: 82656

== ENCOUNTER 2024-03-03 06:27 | Day surgery (SDC) | payer MEDICAID, SELFPAY ==
[2024-02-29 11:49] VITALS: BMI 58.4
[2024-03-03 06:47] VITALS: BP 127/73; PULSE 76; RESP 18; TEMP 37.7; O2SAT 98
[2024-03-03 06:56] LABS: Urine Pregnancy, HCG Qual. Negative (Negative)
[2024-03-03] MEDS: LACTATED RINGERS 1000ML 1,000 ML 25 ML IV (06:56)
--- NOTE | 2024-03-03 07:25 | EXP.HP ---
History of Present Illness *Admission Date: 03/03/24 *Reason for visit:: Dyspepsia/epigastric pain *History of present illness: Mrs. Jaime is a 33-year-old female who is here for diagnostic upper endoscopy. The patient does report longstanding dyspepsia with epigastric abdominal pain, bloating, nausea, early satiety, gassiness and belching. She does not have much heartburn. She does state that her symptoms worsened after her bout of pancreatitis in February 2023. At that time she went to the emergency department on 02/25/2023 and her lipase level was 3868. Her amylase level was not obtained at that time. Her liver chemistries at that time were normal with ALT 73, alkaline phosphatase 57 and total bilirubin 0.5 at the time of her pancreatitis. She did have a CT scan of the abdomen on February 25, 2023 and there was no particular evidence of any pancreatic inflammation or even interstitial pancreatitis. The pancreatic duct was not dilated. The patient does not drink alcohol and had cholecystectomy for gallbladder sludge in 2008. The patient does state that stress may make her dyspeptic symptoms worsen. The patient has mostly regular bowel function but will have intermittent diarrhea. The patient did have an EGD scope previously by Dr. Efe Cisneros in [place] 10 years ago. At that time she had some fecal retention and constipation. She was on MiraLAX for 7 or 8 years but stopped this 2 or 3 years ago because she was doing fine. The patient has used omeprazole for her dyspepsia but she does not feel that this helped. The patient did stop buspirone about a month ago. She was taking this once daily with no side effects. [facility] Disclaimer: The information contained in this section may have been updated after the patient was seen, as this information can be updated by other users. Medical History Bilateral nipple discharge Acute viral syndrome Sinusitis Adult ADHD Allergic rhinitis Abnormal uterine bleeding Rhus dermatitis Anxiety Surgical History Hx of cholecystectomy Hx of section Hx of tubal ligation Family History Other No significant family history Social History (Updated 03/03/24 @ 06:54 by Tatum Mcneill RN) Smoking Status: Never smoker second hand exposure: No alcohol intake: never substance use type: denies use current occupational status: employed Travel in the last 8 weeks: None household members: spouse housing: house current occupational exposures/hazards: No Have you lived/traveled outside [place] in past 30 days?: No Contact w/someone who lives/traveled outside US past 30 days?: No Exposure to someone with infectious disease in past 14 days?: No Do you have a fever (greater than 100.4 F or 38 C)?: No Have you tested positive for COVID-19: Yes Exposed to someone with COVID-19 in past 14 days?: No Do you have a sore throat?: No Do you have a cough?: No Do you have any weakness?: No Are you experiencing any nausea/vomitting?: No Do you have any diarrhea?: No Are you experiencing any unusual bleeding?: No Do you have any muscle aches/pain?: No Do you have any abdominal pain?: No Are you experiencing loss of taste or smell?: No Other Medical History Have you received the Flu Vaccine for this season: No Have you received the Pneumonia Vaccine: No Review of Systems Review of Systems Review of systems (narrative): Negative *Cardiovascular Comments: Negative *Gastrointestinal Comments: Negative *Genitourinary Comments: Negative *Musculoskeletal Comments: Negative *Neurologic Comments: Negative Meds Home Medications and Allergies Home Medications ?Medication ?Instructions ?Recorded ?Confirmed ?Type buspirone 10 mg tablet 10 mg PO BID #60 tabs 02/13/24 03/03/24 Rx levocetirizine 5 mg tablet 5 mg PO DAILY 03/03/24 03/03/24 History New Prescriptions to Start Prescriptions: Allergies Allergy/AdvReac Type Severity Reaction Status Date / Time No Known Allergies Allergy Verified 03/03/24 06:45 Exam Data for Last 24 hours Vital signs and Labs for Last 24 Hours: Temp Pulse Resp BP Pulse Ox O2 Del Method 99.8 F H 76 18 127/73 98 Room Air 03/03/24 06:47 03/03/24 06:47 03/03/24 06:47 03/03/24 06:47 03/03/24 06:47 03/03/24 06:47 Laboratory Results - last 24 hr 03/03/24 06:43: Urine HCG, Qual Negative I & O for Last 24 hours: Intake & Output 02/29/24 03/01/24 03/02/24 03/03/24 23:59 23:59 23:59 23:59 Weight 319 lb 10.724 oz *Routine HEENT Exam Head: Present normocephalic Eye: Present EOMI and PERRL ENT: Present mucous membranes moist *Routine Neck Exam Neck: Present supple *Routine Respiratory Exam Respiratory: Present CTA bilaterally *Routine Cardiovascular Exam Cardiovascular: Present RRR *Routine Abdominal Exam Abdominal: Present soft and normoactive bowel sounds; Absent tenderness *Routine Rectal Exam Rectal:: deferred *Routine Genitalia Exam Genitalia:: deferred *Routine Extremities Exam Extremities: Absent cyanosis, clubbing or edema *Routine Skin Exam Skin: Present warm; Absent rash *Routine Neurological Exam Neurological: Present alert and oriented X3 Assessment and Plan *Assessment and plan (1) Epigastric pain: Status: Acute Category: Medical Code(s): R10.13 - Epigastric pain (2) Functional dyspepsia: Status: Acute Category: Medical Code(s): K30 - Functional dyspepsia (3) Bloating: Status: Acute Category: Medical Code(s): R14.0 - Abdominal distension (gaseous) (4) Early satiety: Status: Acute Category: Medical Code(s): R68.81 - Early satiety (5) Nausea: Status: Acute Category: Medical Code(s): R11.0 - Nausea Plan A/P: 1. Epigastric pain with bloating, nausea, early satiety is the preprocedural diagnosis. The patient will be anesthetized/sedated using MAC sedation. The patient has been seen and examined. Cardiac and lung assessment prior to the examination is stable. Proceed with planned diagnostic EGD
[2024-03-03 07:27] VITALS: O2SAT 98
--- NOTE | 2024-03-03 07:28 | HMH.PROCNOTE ---
[facility] Procedure Note Date: 03/03/24 Time: 07:35 Procedure Note:: Upper Endoscopy Procedure Report: Esophagogastroduodenoscopy with cold biopsies Endoscopost: Deshawn Lipscomb II, MD Referring Physician: DAVID Cruz Date of Procedure: March 03, 2024 Equipment: Olympus GIF 190 standard upper endoscope Sedation: MAC sedation Indications: Mrs. Jaime is a 33-year-old female who is here for diagnostic upper endoscopy. The patient does report longstanding dyspepsia with epigastric abdominal pain, bloating, nausea, early satiety, gassiness and belching. She does not have much heartburn. She does state that her symptoms worsened after her bout of pancreatitis in February 2023. At that time she went to the emergency department on 02/25/2023 and her lipase level was 3868. Her amylase level was not obtained at that time. Her liver chemistries at that time were normal with ALT 73, alkaline phosphatase 57 and total bilirubin 0.5 at the time of her pancreatitis. She did have a CT scan of the abdomen on February 25, 2023 and there was no particular evidence of any pancreatic inflammation or even interstitial pancreatitis. The pancreatic duct was not dilated. The patient does not drink alcohol and had cholecystectomy for gallbladder sludge in 2008. The patient does state that stress may make her dyspeptic symptoms worsen. The patient has mostly regular bowel function but will have intermittent diarrhea. The patient did have an EGD scope previously by Dr. Efe Cisneros in [place] 10 years ago. At that time she had some fecal retention and constipation. She was on MiraLAX for 7 or 8 years but stopped this 2 or 3 years ago because she was doing fine. The patient has used omeprazole for her dyspepsia but she does not feel that this helped. The patient did stop buspirone a couple of months ago. She was taking this once daily with no side effects. The patient resumed buspirone twice daily and has had significant improvement of her symptoms. The patient's fecal elastase testing was normal (greater than 800 mcg/g). Her labs including liver chemistries, hemoglobin and hematocrit are normal. Her amylase and lipase from 01/22/2024 were normal (58 in the 115 respectively. Procedure: Prior to the procedure, a history and physical exam was performed, and patient's medications and allergies were reviewed. The risks, benefits and alternatives of the sedation and procedure were discussed with the patient. All questions were answered and informed consent was obtained. The patient was brought to the procedure room. Patient identification and proposed procedure were verified by the physician and the nurse. The patient was placed in a left lateral decubitus position and the scope was passed under direct vision. Throughout the procedure, the patient's blood pressure, pulse, and oxygen saturations were monitored continuously. The upper GI endoscopy was accomplished without difficulty. The patient tolerated the procedure well. Findings: The scope was passed directly into the upper esophagus and advanced to the third portion of the duodenum. The post bulbar duodenum and duodenal bulb were normal with normal mucosa and conniventes. The ampulla was normal. There was some mild duodenal lymphoid stasis. The scope was withdrawn through a normal duodenal bulb and pylorus into the stomach. There was mild linear reactive gastropathy of the antrum and body of the stomach. The remainder of the fundus of the stomach was normal. Upon retroflexion there was no hiatal hernia. Biopsies were taken from the antrum. The scope was then withdrawn into the esophagus. There was no evidence of reflux esophagitis or Hudson's. There was a larger proximal esophageal inlet patch. The remainder of the esophageal mucosa was normal. Impression: 1. Proximal esophageal inlet patch 2. Mild linear reactive gastropathy of antrum/body of stomach with mild bile reflux Plan: I will follow-up the biopsies. The patient is clinically improved with buspirone. I would continue this along with the fiber bowel regimen (combined MiraLAX plus Citrucel) and recommend Iberogast as needed. I will discuss the findings with the patient and family.
--- NOTE | 2024-03-03 07:35 | EXP.ANES.CKL ---
[facility] Disclaimer: The information contained in this section may have been updated after the patient was seen, as this information can be updated by other users. Medical History Bilateral nipple discharge Acute viral syndrome Sinusitis Adult ADHD Allergic rhinitis Abnormal uterine bleeding Rhus dermatitis Anxiety Surgical History Hx of cholecystectomy Hx of section Hx of tubal ligation Family History Other No significant family history Social History (Updated 03/03/24 @ 06:54 by Tatum Mcneill RN) Smoking Status: Never smoker second hand exposure: No alcohol intake: never substance use type: denies use current occupational status: employed Travel in the last 8 weeks: None household members: spouse housing: house current occupational exposures/hazards: No Have you lived/traveled outside US in past 30 days?: No Contact w/someone who lives/traveled outside US past 30 days?: No Exposure to someone with infectious disease in past 14 days?: No Do you have a fever (greater than 100.4 F or 38 C)?: No Have you tested positive for COVID-19: Yes Exposed to someone with COVID-19 in past 14 days?: No Do you have a sore throat?: No Do you have a cough?: No Do you have any weakness?: No Are you experiencing any nausea/vomitting?: No Do you have any diarrhea?: No Are you experiencing any unusual bleeding?: No Do you have any muscle aches/pain?: No Do you have any abdominal pain?: No Are you experiencing loss of taste or smell?: No [facility] Anesthesia Checklist Patient Identification Patient Identification: Arm Band Structural Data Admitted From: Home Planned Operative Procedure/s: EGD Consent for Planned Operative Procedure(s) Verified: Yes Verified Documents: Surgical Consent and History and Physical NPO Status Verified Time NPO: 00:00 Additional verifications Anesthesia Reactions: No Hx Blood Transfusions: No Blood Transfusion Reaction: No Airway Assessment Mallampati Score:: Class II C-Spine Mobility Assessed: Yes TMJ Mobility Assessed: Yes Dentition: Good Dentition Neurological Assessment Level of Consciousness: Awake, Alert and Appropriate Anesthesia Plan Anesthesia Risk discussed: Yes Anesthesia Plan: Verified ASA Class: II Anesthesia Type: MAC
[2024-03-03 07:39] VITALS: BP 108/70; PULSE 68; RESP 16; TEMP 36.7; O2SAT 96
[2024-03-03 07:49] VITALS: BP 141/82; PULSE 67; RESP 17; O2SAT 99
[2024-03-03 07:59] VITALS: BP 135/88; PULSE 62; RESP 17; O2SAT 99
[2024-03-03 08:09] VITALS: BP 147/82; PULSE 68; RESP 15; TEMP 36.6; O2SAT 100
== END 2024-03-03 08:15 | disposition home or self-care (01) ==
PROVIDERS: PCP Nurse Practitioner Family; Visit Provider Internal Medicine Gastroenterology
PROC: 0DJ08ZZ Inspection of Upper Intestinal Tract, Via Natural or Artificial Opening Endoscopic (ICD-10-PCS; CPT 43239; principal; 2024-03-03 08:00)
DX: K30 Functional dyspepsia (principal); R14.0 Abdominal distension (gaseous); R68.81 Early satiety; R11.0 Nausea; K31.9 Disease of stomach and duodenum, unspecified
CPT/HCPCS: 43239; 81025; J7120

== ENCOUNTER 2024-03-03 10:16 | Outpatient (CLI) | payer MEDICAID, SELFPAY ==
[2024-03-03 19:02] LABS: Influenza A, PCR Not Detected (NotDetected); Influenza B, PCR Not Detected (NotDetected)
[2024-03-04 02:31] LABS: Coronavirus 19, PCR Detected (NotDetected)
== END 2024-03-03 23:59 | disposition home or self-care (01) ==
LOC: LAB.DROPOF 03-04 10:17
PROVIDERS: PCP Student in an Organized Health Care Education/Training Program; Visit Provider Student in an Organized Health Care Education/Training Program
DX: U07.1 COVID-19 (principal); R09.81 Nasal congestion; J02.9 Acute pharyngitis, unspecified
CPT/HCPCS: 87070; 87636

== ENCOUNTER 2024-03-31 09:36 | Outpatient (CLI) | payer MEDICAID, SELFPAY | END 2024-03-31 23:59 | disposition home or self-care (01) | LOC: LAB.DROPOF 04-01 07:20 | PROVIDERS: PCP Student in an Organized Health Care Education/Training Program; Visit Provider Student in an Organized Health Care Education/Training Program | DX: R39.9 Unspecified symptoms and signs involving the genitourinary system (principal) | CPT/HCPCS: 87086 ==

== ENCOUNTER 2024-04-03 06:19 | Outpatient (CLI) | payer MEDICAID, SELFPAY ==
--- NOTE | 2024-04-03 06:25 | CT_ITS ---
FINAL REPORT TECHNIQUE: Axial images through the abdomen and pelvis were performed without contrast. This study was performed with techniques to keep radiation doses as low as reasonably achievable, (ALARA). Individualized dose reduction techniques using automated exposure control or adjustment of mA and/or kV according to the patient's size were employed. CLINICAL HISTORY: L flank pain, hematuria COMPARISON: 02/26/2023 FINDINGS: Abdomen: The lung bases are clear. The liver parenchyma is homogeneous. The gallbladder is surgically absent. The spleen, pancreas, adrenals and kidneys are unremarkable. Pelvis: The urinary bladder is unremarkable. The appendix is not visualized. The uterus is anteverted. Calcified phleboliths are noted in the pelvis. There is a questionable tiny calcification in the superior wall of the bladder, also present on the prior CT examination, best seen on image #46 of series 602. There is no pelvic mass or inflammation. A small amount of free fluid is present in the pelvis. IMPRESSION: No acute abnormality. Reviewed, Interpreted and Dictated by Mal White MD Transcribed by Lorraine Myles Authenticated and [facility]
== END 2024-04-03 23:59 | disposition home or self-care (01) ==
PROVIDERS: PCP Nurse Practitioner Family; Visit Provider Student in an Organized Health Care Education/Training Program
DX: R31.9 Hematuria, unspecified (principal); R10.9 Unspecified abdominal pain; Z87.442 Personal history of urinary calculi
CPT/HCPCS: 74176

== ENCOUNTER 2024-07-11 08:57 | Outpatient (CLI) | payer MEDICAID, SELFPAY ==
--- NOTE | 2024-07-11 09:00 | US_ITS ---
PROCEDURE INFORMATION: Exam: US Left Breast, Complete US Right Breast, Complete Exam date and time: 07/11/2024 9:04 AM Age: 34 years old Clinical indication: Bilateral breast pain. TECHNIQUE: Imaging protocol: Complete ultrasound of all four quadrants of the left breast and the retroareolar regions, including ultrasound of the axilla when performed. Complete ultrasound of all four quadrants of the right breast and the retroareolar regions, including ultrasound of the axilla when performed. COMPARISON: No relevant prior studies available. FINDINGS: ULTRASOUND: Breast ultrasound findings: Right breast ultrasound: No solid or cystic lesions. No abnormal shadowing, distortion or skin thickening. Single borderline enlarged right axillary lymph node borderline cortical thickening measuring 0.3 cm. Left breast ultrasound: No solid or suspicious masses. Benign simple cysts at 11 o'clock 4 cm from nipple measuring 0.6 cm. No abnormal shadowing, distortion or skin thickening. No abnormal lymph nodes seen in the axilla. The partially visualized axillary vein is dilated with question of slow flow. IMPRESSION: 1. No finding to explain the patient's breast pain. Recommend clinical follow-up. 2. Prominent left axillary vein with questioned slow flow. Thrombus is not excluded. Recommend further evaluation left upper extremity deep venous thrombosis study. 3. Borderline enlarged right axillary node, nonspecific. Recommend clinical follow-up follow-up right axillary ultrasound in months. ASSESSMENT: BI-RADS Category 3: Probably benign.
== END 2024-07-11 23:59 | disposition home or self-care (01) ==
LOC: RAD 08:58
PROVIDERS: PCP Obstetrics & Gynecology; Visit Provider Obstetrics & Gynecology
DX: N64.4 Mastodynia (principal)
CPT/HCPCS: 76641

== ENCOUNTER 2024-07-11 14:19 | Emergency (ER) | payer MEDICAID, SELFPAY ==
[2024-07-11 14:37] VITALS: BP 136/87; PULSE 96; RESP 18; TEMP 36.8; O2SAT 98; BMI 26.5
[2024-07-11 14:45] VITALS: O2SAT 98
--- NOTE | 2024-07-11 14:50 | HMH.EDGENADL ---
Discharge Plan Disposition Patient Disposition: Home, Self-Care Chief Complaint: Recheck/Abnormal Lab/Rx Prescriptions Prescriptions: No Action buspirone 10 mg tablet 10 mg PO TID Qty: 90 12RF Rx Instructions: Please take 1 tablet p.o. three times daily levocetirizine 5 mg tablet 5 mg PO DAILY Patient Comments: TAKE 1 TABLET BY MOUTH ONCE DAILY Referrals Follow up/Referrals: Provider,Referral, MD [Primary Care Provider] - See instructions Activity Restrictions/Add. Instructions Additional Instructions/Restrictions: Call your family doctor to establish care for this visit to the emergency department and schedule follow-up within 48 hours to ensure improvement. If you have any worsening of your condition or any other concerning signs or symptoms, return to the emergency department or your primary care doctor for further evaluation. Take Tylenol 1000 mg every 6 hours (4 times daily) and ibuprofen 400 mg every 6 hours (4 times daily) as needed with food and water to prevent GI upset and kidney damage. Clinical Impressions Clinical Impression: Breast pain, left, Encounter for medical assessment Print Language Print Language: Ethiopian Discharge ED Provider: Alex Kline General Adult HPI General Chief complaint: Recheck/Abnormal Lab/Rx Stated complaint: Sent by Gwen Thompson side of breast- poss.blood clot Time Seen by Provider: 07/11/24 14:25 Mode of Arrival: Ambulatory Source of Information: Patient Description of Symptoms (Recalled from ER Triage Doc. by RN): Reports having pain in her left breast for approx 1 month. States she went and saw Dr. Linares who ordered an ultrasound that was conducted today. States she got a phone call telling her that it looked as if she has a blood clot and to go to the er for further evaluation. History of Present Illness HPI narrative: Please note that above description of symptoms, in this electronic medical record under categorization of recalled from ER triage doctor by RN are reflective of an initial nursing assessment, however, is not reflective of my full history and physical exam that was personally taken and clarified. Consequentially, this preceding description of symptoms, which may include the patient's categorized chief complaint in the EMR, do not reflect my personal clinical impression, and the ultimate description of history of present illness and patient stated complaints should be deferred to this section of the note. Unless stated otherwise or congruent with this section of the note, additional signs, symptoms, or incongruence should be interpreted as inaccurate with my clinical impression. Related Data Home Medications ?Medication ?Instructions ?Recorded ?Confirmed levocetirizine 5 mg tablet 5 mg PO DAILY 03/03/24 07/07/24 Previous Rx's ?Medication ?Instructions ?Recorded buspirone 10 mg tablet 10 mg PO TID #90 tabs 07/03/24 Allergies Allergy/AdvReac Type Severity Reaction Status Date / Time No Known Allergies Allergy Verified 07/07/24 15:38 [facility] Disclaimer: The information contained in this section may have been updated after the patient was seen, as this information can be updated by other users. Medical History (Updated 07/11/24 @ 14:53 by Alex Kline MD) Breast pain Pain of both breasts Bilateral nipple discharge Acute viral syndrome Sinusitis Adult ADHD Allergic rhinitis Abnormal uterine bleeding Rhus dermatitis Anxiety Surgical History Hx of cholecystectomy Hx of section Hx of tubal ligation Family History Other No significant family history Social History Smoking Status: Never smoker second hand exposure: No alcohol intake: never substance use type: denies use current occupational status: employed Travel in the last 8 weeks?: None household members: spouse housing: house current occupational exposures/hazards: No Have you lived/traveled outside [place] in past 30 days?: No Contact w/someone who lives/traveled outside US past 30 days?: No Exposure to someone with infectious disease in past 14 days?: No Do you have a fever (greater than 100.4 F or 38 C)?: No Have you tested positive for COVID-19?: No Exposed to someone with COVID-19 in past 14 days?: No Do you have a sore throat?: No Do you have a cough?: No Do you have any weakness?: No Do you have any diarrhea?: No Are you experiencing any unusual bleeding?: No Do you have any muscle aches/pain?: No Do you have any abdominal pain?: No Are you experiencing loss of taste or smell?: No Other Medical History Have you received the Flu Vaccine for this season: No Have you received the Pneumonia Vaccine: No ROS Obtained: Yes All systems reviewed & no additional complaints except as documented Physical Exam General General appearance: alert Head Head exam: atraumatic and normocephalic Eye Eye exam: Present normal appearance, PERRL and EOMI Neck Neck exam: Present normal inspection, full ROM and trachea midline Respiratory Respiratory exam: Absent respiratory distress, wheezes, stridor, accessory muscle use or prolonged expiratory phase Cardiovascular Cardiovascular exam: Present other (Pulses equal symmetric in upper and lower extremities) Abdominal Exam Abdominal exam: Present soft; Absent distention, tenderness or pulsatile mass Extremities Exam Extremities exam: Absent edema Neurological Exam Neurological exam: Present alert, oriented X3 and CN II-XII intact; Absent motor sensory deficit Skin Skin exam: Present warm and dry; Absent diaphoresis or erythema Medical Decision Making Medical Records Medical records reviewed: Yes I reviewed the patient's medical records. Screening: Per USPSTF and CDC recommendations, given the prevalence of disease in our region, it is our hospital?s policy to screen for HIV and viral Hepatitis for all patients aged 18 and over and those with ongoing risk factors. Darshan Inquiry Pt receiving controlled substance: No Darshan was queried for this patient: No Vital Signs: 07/11/24 14:37 Temperature 98.3 F Temperature Source Oral Pulse Rate [Radial] 96 H Respiratory Rate 18 Blood Pressure [Right Arm] 136/87 Blood Pressure Mean [Right Arm] 103 Blood Pressure Source [Right Arm] Automatic Cuff Blood Pressure Position [Right Arm] Sitting 02 Sat by Pulse Oximetry 98 Oxygen Delivery Method Room Air Orders (Tests/Meds): ORDERS Category Date Time Status POCUS Point of Care (ER Only) Stat Exams 07/11/24 14:28 Ordered HIV Combo Stat Lab 07/11/24 14:41 Ordered Hepatitis C Ab Qual. W/ RFX Stat Lab 07/11/24 14:41 Ordered Medical Decision Narrative: 34-year-old female with left upper extremity pain presenting with concern for left upper extremity DVT. 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 Breast ultrasound had concern for slow flowing blood flow through the axillary vein, stated that blood clot cannot be ruled out. Patient has no left upper extremity symptoms. Patient came to the emergency department for further evaluation given this read. History obtained with patient. On arrival, very clinically well, no upper extremity abnormalities. Differential includes DVT, radiculopathy, fibrocystic change, hormone responsive breast tissue, among others. Patient hemodynamically stable, nontachycardic and in no acute distress. Left upper extremity physical exam completely normal. Ngkby-wj-eyqh ultrasound performed. Negative for DVT of the left upper extremity. I feel this is likely abrasives sales representative of fibrocystic versus hormone responsive breast tissue causing axillary aching discomfort. Recommended she take ibuprofen when getting home to see if it helps. She does state that it happens intermittently, but has not kept a log to see if it happens in any point in the month related to her menstrual cycle, I recommend that she do this as well. Because patient at baseline without signs or symptoms of clinical decompensation, deemed appropriate for discharge. Results were relayed to patient who voiced understanding and were agreeable to outpatient management and follow up. I discussed my clinical impression with patient and answered all questions. At this time, the evidence for any other entities in the differential is insufficient to warrant any further testing or ED observation. This was explained as well. Advisory was given that persistent or worsening symptoms require further evaluation. I confirmed the understanding of this discussion. Security Services Specialist disclaimer Much of this encounter note is an electronic family service worker spoken language to printed text. Electronic family service worker of the spoken language may permit errors. Although I have reviewed the note, some errors may still exist. Procedures Limited Ultrasound Indication:: Limited DVT ultrasound Indication: Limited compression ultrasonography of the left extremity was performed to evaluate for non-compressibility of the deep veins in the patient. The ultrasound was performed with the following indications, as noted in the H&P: Left breast pain, equivocal ultrasound from outpatient setting Identified structures: Left ulnar vein, radial vein, cephalic vein, basilic vein, axillary vein. Findings: Upper extremity: Left UV good compressibility Left RV: Good compressibility Left Cephalic vein: Good compressibility Left Basilic vein: Good compressibility Left Axillary vein: Good compressibility Impression: Normal DVT ultrasound without evidence of DVT Images were saved to permanent archive The study was technically adequate CPT: 26528-02-FL [id number]-FH 58879-87 (complete bilateral study) This study was performed by me, and I personally interpreted all images/videos. Based on my clinical judgement, these images were adequate and did not necessitate further imaging Critical Care Critical Care Time Critical Care Time: No
[2024-07-11 14:57] VITALS: BP 124/69; PULSE 75; RESP 18; TEMP 36.8; O2SAT 98
== END 2024-07-11 14:59 | disposition home or self-care (01) ==
PROVIDERS: Emergency Provider Emergency Medicine
DX: N64.4 Mastodynia (principal)
CPT/HCPCS: 99284

== ENCOUNTER 2024-07-21 15:53 | Outpatient (CLI) | payer MEDICAID, SELFPAY ==
[2024-07-21 21:06] LABS: Coronavirus 19, PCR Not Detected (NotDetected); Influenza A, PCR Not Detected (NotDetected); Influenza B, PCR Not Detected (NotDetected)
== END 2024-07-21 23:59 | disposition home or self-care (01) ==
LOC: LAB.DROPOF 07-22 13:17
PROVIDERS: PCP Student in an Organized Health Care Education/Training Program; Visit Provider Student in an Organized Health Care Education/Training Program
DX: J32.9 Chronic sinusitis, unspecified (principal); J02.9 Acute pharyngitis, unspecified
CPT/HCPCS: 87636

== ENCOUNTER 2024-10-10 08:57 | Outpatient (CLI) | payer MEDICAID, SELFPAY ==
--- OUTSIDE RECORDS SUMMARY | 2024-09-03 09:00 | XMS_ITS | Encounter Summary ---
Author Organization [place] [address] Care Team Providers Care Kettle Loader Name Role Phone Unavailable Primary Care Provider Unavailabl e Reason for Referral * Biopsy Procedure (Routine) - Authorization Not Needed Specialty Diagnoses / Procedures Referred By Contac t Referred To Contact Dermatology Diagnoses Verruca vulgaris Disturbance of skin sensation Procedures NH DESTRUCTION BENIGN LESIONS UP TO 14 Tamy Ramos MD [address] [place] [address] Phone: tel: fax: Tamy Ramos MD [address] [place] [address] Phone: tel: fax: Referral ID Status Reason Start Date Expiration Date Visits Requested Visits Authorized [id number] Authorization Not Needed 09/03/2024 09/03/2025 1 1 Reason for Visit * Reason Comments New Patient * Biopsy Procedure (Routine) - Authorization Not Needed Specialty Diagnoses / Procedures Referred By Contac t Referred To Contact Dermatology Diagnoses Verruca vulgaris Disturbance of skin sensation Procedures NH DESTRUCTION BENIGN LESIONS UP TO 14 Tamy Ramos MD [address] [place] [address] Phone: tel: fax: Tamy Ramos MD [address] [place] [address] Phone: tel: fax: Referral ID Status Reason Start Date Expiration Date Visits Requested Visits Authorized [id number] Authorization Not Needed 09/03/2024 09/03/2025 1 1 Encounter Details Date Type Department Care Team (Late st Contact Info) Description 09/03/2024 9:00 AM EDT Office Visit [facility] [address] [place] [phone] Tamy Ramos MD [address] [place] [phone] Xerosis cutis (Primary Dx); Hyperkeratosis; Verruca vulgaris; Disturbance of skin sensation; Periorbital edema of both eyes Social History Tobacco Use Types Packs/Day Years Used Date Smoking Tobacco: Never Assessed Comments Unknown Sex and Gender Information Value Date Recorded Sex Assigned at Not on file Legal Sex Female 1:58 PM EDT Gender Identity Not on file Sexual Orientation Not on file documented as of this encounter Last Filed Vital Signs Vital Sign Reading Time Taken Comments Blood Pressure - - Pulse - - Temperature - - Respiratory Rate - - Oxygen Saturation - - Inhaled Oxygen Concentration - - Weight 63.5 kg (140 lb) 09/03/2024 8:58 AM EDT Height 157.5 cm (5' 2 ) 09/03/2024 8:58 AM EDT Body Mass Index 25.61 09/03/2024 8:58 AM EDT documented in this encounter Ordered Prescriptions Prescription Sig Dispense Quantity Refills Last Filled Start Date End Date imiquimod (ALDARA) 5 % Top Cream in PacketIndications: Verruca vulgaris,[place] ce of skin sensation Clip corner of packet and apply a small amount to warts twice a day as directed. If irritation develops, hold med for a few days then restart. 24 Packet 1 09/03/2024 fexofenadine (SIMONE) 180 mg Oral TabletIndications: Periorbital edema of both eyes Take 1 Tablet by mouth daily. 30 Tablet 2 09/03/2024 urea (CARMOL) 40 % Top CreamIndications:X erosis cutis,Hyperkeratos is Apply twice daily to wart 85 g 11 09/03/2024 documented in this encounter Progress Notes * Tamy Ramos MD - 09/03/2024 9:00 AM EDT CC: VV Assessment and Plan: Verruca Vulgaris- R palm (1) Reviewed etiology and pathogenesis of this benign condition and reviewed treatment options including monitoring, cryotherapy, paring lesions at home, over the counter salicylic acid compounds, excisional biopsy, cimetidine, PO zinc, HPV vaccination, compounded efudex + salicylic acid, intralesionalcandida antigen, HPV vaccination, and imiquimod. Patient elects for treatment with LN2. After discussion of risks vs. benefits of treatment of this lesion, the lesion was pared down with a derma blade then destroyed with liquid nitrogen Despite the benign nature of this lesion, destruction was medically necessary because it demonstrated the following: The lesion has physical evidence of inflammation (e.g., purulence, oozing, edema, erythema) - one lesion treated -Rx: Urea 40% cre; Apply topically twice daily, and Imiquimod; Apply to warts twice daily Periorbital Edema Allergic rhinitis: edema of the inferior orbital skin -Discussed possible triggers - Rx: Fexofenadine 180 mg daily, continue current antihistamine, recommend caffeine containing topical solns -Patient will notify me if symptoms worsen History of Present Illness: Lenora Jaime is a 34 y.o. female who presents to establish care specifically for a wart on her rightpalm, she has tried OTC wart remedies with no improvement. She also would like recommendations for under eye swelling in the mornings. Medical History: There is no problem list on file for this patient. Medications: No current outpatient medications on file prior to visit. No current facility-administered medications on file prior to visit. Allergies: Not on File Family History: No family history on file. Social History: Exam: Well-appearing patient in no apparent distress. Mood and affect within normal limits A skin examination was performed including the face and right hand Exam performed with Bettye Rushing MA. There were no vitals taken for this visit. Pertinent exam findings noted in assessment and plan. Return to clinic 1m, sooner if needed. Strict return precautions discussed. All concerns and questions addressed at today's visit. Patient understands to contact us with any interim concerns. Tamy Ramos MD cc. No primary care provider on file. documented in this encounter Miscellaneous Notes * Patient Instructions - Bettye Pacheco MA - 09/03/2024 9:[address] Ramos's Warts (AKA verruca) Information Warts occur when a common virus called Human papillomavirus (HPV), which lives everywhere in our environment, gets into the skin, usually through a scrape or cut. the The virus causes your skin to develop warty growths. The virus never goes deeper than your skin and cannot make you sick. The virus that causes common warts is not the same strain of virus as the one that causes cancer. Anyone can get warts, but it is most common in children or adults who have weakened immune systems.The virus lives everywhere around us and is not a sign of poor hygiene. Are Warts Contagious? Yes, warts are technically contagious but this does not mean you have to avoid being around other people. You should avoid picking at the wart and sharing clothing and towels with others. Treatment Options Warts can either go away without treatment (most warts go away on their own in 2 years), or they can stay on the skin for a very long time and be very frustrating to treat. We have numerous options to treat warts. Home Remedies Some people prefer trying home (or hjfy-vzy-hbtlicf) remedies to try and treat warts. Some reasonable options to try are: WartStick (available on [employer], around $11) - this is a strong acid that can help peel warts off the skin. It is typically applied nightly after bathing until irritation and peeling occurs. Compound W (available at pharmacies, around $7) - this is also an acid and works similar to WartStick. Tape stripping - apply a piece of duct tape or scotch tape over the wart and keep it covered at alltimes, and repeatedly tap the wart 20 times twice daily. Some people prefer trying this easy and cheap method before others and it can sometimes create enough irritation around the molluscum for yourimmune system to start attacking it. Paring - this is very effective and should be done by all patients. Buy disposable emery boards (nail filing sticks) and once a week, soak the wart in warm water for 5-10 minutes (showering also counts) and then file it down as much as possible with an emery board. Throw away the emery board after using it. Garlic - garlic contains chemicals that can cause an irritant reaction on the skin which can actually help your immune system destroy warts. Get a clove of garlic and cut the clove to reveal a freshly cut side Rub this gently on the wart or warts until they are slightly wet Apply a bandaid over the area. Do NOT put any garlic pieces under the bandaid. Do this right before bedtime, then wash the area in the morning. Eventually, the wart will become red and irritated. Prescription and In-Office Treatments Tretinoin - Tretinoin cream is most commonly used for acne, but used once or twice daily on warts, it can help your immune system start attacking the wart within 1-2 weeks. When your wart becomes inflamed, stop using tretinoin and wait 7 days to see if it peels off before restarting treatment. Cimetidine - this is actually a heartburn relieving pill that has been shown to help your immune system recognize and attack viruses on the skin (like warts and molluscum). It is a reasonable option to try, but requires taking a pill twice daily and takes at least 3-4 months to work. Cryotherapy - This treatment involves freezing the warts with liquid nitrogen to peel them off the skin. I almost never do this treatment for young children but it can be reasonable for older children and adults. Shave removal - This procedure involves numbing the wart and shaving it off entirely. This is only for single warts that are large or won't go away with other treatment. Efudex and salicylic acid ($35-60) - This is the most effective topical treatment and my preferred method. It is prescribed to a compounding pharmacy that creates a paste specifically for you and ships it to your doorstep. You apply this paste nightly until inflammation occurs to the warts, and your body will destroy the rest of the warts. Marlene antigen - This is an in-office injection of a chemical underneath your wart that causes your immune system to attack the warts. It requires multiple treatments over 3-6 months to be effectivebut it can help treat warts that are all over the body just by injecting one area. Imiquimod (Aldara) - This is a topical cream that stimulates your immune system to recognize the wart on your skin and start attacking it. It can take 2-3 months to be effective. While warts can be very frustrating and stubborn, remember that they are not harmful to your healthand eventually, your immune system will recognize them and destroy them. documented in this encounter Plan of Treatment Upcoming Encounters Date Type Department Care Team (Late st Contact Info) Description 10/22/2024 11:45 AM EDT Office Visit [facility] [address] [facility] [address] [place] [phone] Tamy Ramos MD [address] [place] [phone] Scheduled Orders Name Type Priority Associated Diagnoses Orde r Schedule NH DESTRUCTION BENIGN LESIONS UP TO 14 NH Charge Routine Verruca vulgaris Disturbance of skin sensation Ordered: 09/03/2024 documented as of this encounter Visit Diagnoses Diagnosis Xerosis cutis- Primary Other specified disease of sebaceous glands Hyperkeratosis Acquired keratoderma Verruca vulgaris Viral warts, unspecified Disturbance of skin sensation Periorbital edema of both eyes documented in this encounter Historical Medications * This list may reflect changes made after this encounter. levocetirizine (XYZAL) 5 mg Oral Tablet Take 5 mg by mouth daily. 05/21/2024 busPIRone (BUSPAR) 10 mg Oral Tablet Take 10 mg by mouth 3 times daily. 08/01/2024 added in this encounter
--- OUTSIDE RECORDS SUMMARY | 2024-10-10 08:59 | XMS_ITS | Clinical Summary ---
Author Organization [facility] Address [address] [place] [address] Care Team Providers Care Bat Person Name Role Phone Provider, No Known Primary Care Provider Unavail able Allergies No known active allergies Medications busPIRone (BUSPAR) 5 MG tablet Take 5 mg by mouth 2 (Two) Times a Day. 11/29/2021 Active Active Problems No known active problems Family History Medical History Relation Name Comments Endometriosis Mother Breast cancer Neg Hx Colon cancer Neg Hx Ovarian cancer Neg Hx Uterine cancer Neg Hx Relation Name Status Comments Mother Social History Tobacco Use Types Packs/Day Years Used Date Smoking Tobacco: Never Smokeless Tobacco: Never Alcohol Use Standard Drinks/Week Comments Never 0 (1 standard drink = 0.6 oz pur e alcohol) AUDIT-C Answer Date Recorded Q1: How often do you have a drink containing alc ohol? Never 12/02/2019 Average Number of Drinks Not on file 020 Frequency of Binge Drinking Not on file 11/11 Abuse Screen Answer Date Recorded Unsafe at Home or Work/School Not on file Feels Threatened by Someone? Not on file 11/2022 Does Anyone Keep You from Co ntacting Others or Doint Things Outside the Home? Not on file 12/18/2022 Physical Sign of Abuse Present Not on file 1 Housing Stability Answer Date Recorded Current Living Arrangements Not on file 11/2022 Potentially Unsafe Housing Conditions Not on aquiles e 12/18/2022 Family and Community Support Answer Lamont e Recorded Help with Day-to-Day Activities Not on file 12/18/2022 Lonely or Isolated Not on file 12/18/2022 Employment Answer Date Recorded Do you want help finding or keeping work or a cecelia b? Not on file 12/18/2022 Disabilities Answer Date Recorded Concentrating, Remembering, or Making Decisions Difficulty Not on file 12/18/2022 Doing Errands Independently Difficulty Not on fi le 12/18/2022 Education Answer Date Recorded Help with school or training? Not on file Preferred Language Not on file 12/18/2022 Comments No Sex and Gender Information Value Date Recorded Sex Assigned at Not on file Legal Sex Female 12:07 PM EDT Gender Identity Not on file Sexual Orientation Not on file Occupation Industry Job Start Date Job End Date HOMEMAKER Not on file Not on file Not on file Last Filed Vital Signs Vital Sign Reading Time Taken Comments Blood Pressure 118/68 12/13/2021 4:14 PM EDT Pulse - - Temperature 36.8 C (98.2 F) 01/15/2020 10:22 AM EST Respiratory Rate - - Oxygen Saturation - - Inhaled Oxygen Concentration - - Weight 64.2 kg (141 lb 9.6 oz) 12/13/2021 4:14 P M EDT Height 157.5 cm (5' 2 ) 12/13/2021 4:14 PM EDT Body Mass Index 25.9 12/13/2021 4:14 PM EDT Plan of Treatment Health Maintenance Due Date Last Done Comments HEPATITIS C SCREENING 11/26/2019 ANNUAL PHYSICAL 12/01/2020 12/02/2019 TDAP/TD VACCINES (2 - Td or Tdap) 01/17/2022 012 Annual Gynecologic Pelvic an d Breast Exam 12/14/2022 12/13/2021 COVID-19 Vaccine (1 - 2023-2 5 season) 2023 INFLUENZA VACCINE 12/10/2024 Pneumococcal Vaccine 0-49 Aged Out No longer eligible based on patient's age to complete this topic [place] [place] [address] [employer] Care Teams Bat Person Relationship Specialty Start Date End Date Provider, [place] [address] PCP - General 12/02/19
--- OUTSIDE RECORDS SUMMARY | 2024-10-10 08:59 | XMS_ITS | Clinical Summary ---
Author Organization [facility] Address [address] [place] [address] [place] [phone] Phone Care Team Providers Care Recreation Officer Name Role Phone Unavailable Primary Care Provider Unavailabl e Allergies No known active allergies Medications busPIRone (BUSPAR) 10 mg Oral Tablet Take 10 mg by mouth 3 times daily. 5 Active levocetirizine (XYZAL) 5 mg Oral Tablet Take 5 mg by mouth daily. 5 Active urea (CARMOL) 40 % Top CreamIndication s:Xerosis cutis,Hyperkera tosis Apply twice daily to wart 85 g 11 5 Active fexofenadine (SIMONE) 180 mg Oral TabletIndicatio ns:Periorbital edema of both eyes Take 1 Tablet by mouth daily. 30 Tablet 2 5 Active imiquimod (ALDARA) 5 % Top Cream in PacketIndicatio ns:Verruca vulgaris,Distur bance of skin sensation Clip corner of packet and apply a small amount to warts twice a day as directed. If irritation develops, hold med for a few days then restart. 24 Packet 1 5 Active Encounters Date Type Department Care Team Description 09/03/2024 9:00 AM EDT Office Visit [facility] [address] [place] [address] [place] [phone] Tamy Ramos MD Xerosis cutis (Primary Dx); Hyperkeratosis; Verruca vulgaris; Disturbance of skin sensation; Periorbital edema of both eyes from Last 3 Months Social History Tobacco Use Types Packs/Day Years Used Date Smoking Tobacco: Never Assessed Comments Unknown Sex and Gender Information Value Date Recorded Sex Assigned at Not on file Legal Sex Female 1:58 PM EDT Gender Identity Not on file Sexual Orientation Not on file Obstetrics History Last Filed Vital Signs Vital Sign Reading Time Taken Comments Blood Pressure - - Pulse - - Temperature - - Respiratory Rate - - Oxygen Saturation - - Inhaled Oxygen Concentration - - Weight 63.5 kg (140 lb) 09/03/2024 8:58 AM EDT Height 157.5 cm (5' 2 ) 09/03/2024 8:58 AM EDT Body Mass Index 25.61 09/03/2024 8:58 AM EDT Plan of Treatment Upcoming Encounters Date Type Department Care Team (Late st Contact Info) Description 10/22/2024 11:45 AM EDT Office Visit [facility] [address] [place] [phone] Tamy Ramos MD [address] [place] [phone] Health Maintenance Due Date Last Done Comments Annual Wellness Exam 1991 Hepatitis B Vaccine (1 of 3 - 19+ 3-dose series) 2007 Cervical Cancer Screening 2009 Pap Smear 2009 HPV/Pap Cotest 2018 DTaP/TDaP/Td (2 - Td or Tdap) 01/17/2022 01/18/2012 COVID-19 Vaccine (1 - 2023-2 5 season) 2023 Influenza Vaccine (#1) 2024 01/18/2012 Meningococcal B Vaccine Aged Out No l onger eligible based on patient's age to complete this topic Pneumococcal Vaccine 0-49 Aged Out No longer eligible based on patient's age to complete this topic Insurance [facility] [id number] MDR
--- NOTE | 2024-10-10 09:00 | US_ITS ---
FINAL REPORT CLINICAL HISTORY: 3 month follow up COMPARISON: 07/11/2024 FINDINGS: Limited sonographic images of the left axilla were obtained. No mass or fluid collection is identified. There are several benign-appearing lymph nodes, largest measures 1.6 cm. Tubular like structure seen on prior exam is not seen on today's exam. IMPRESSION: Normal size left axillary lymph nodes. Reviewed, Interpreted and Dictated by Yeimi Holly MD Transcribed by Estefania Thomas Authenticated and [facility]
== END 2024-10-10 23:59 | disposition home or self-care (01) ==
LOC: RAD 08:58
PROVIDERS: PCP Family Medicine; Visit Provider Obstetrics & Gynecology
DX: N64.4 Mastodynia (principal)
CPT/HCPCS: 76642

== ENCOUNTER 2024-11-27 16:30 | Outpatient (CLI) | payer MEDICAID, SELFPAY ==
--- OUTSIDE RECORDS SUMMARY | 2024-10-22 11:45 | XMS_ITS | Encounter Summary ---
Author Organization [place] [address] Care Team Providers Care Director Post Name Role Phone Unavailable Primary Care Provider Unavailabl e Reason for Referral * Biopsy Procedure (Routine) - Closed Specialty Diagnoses / Procedures Referred By Argelia beck Referred To Contact Diagnoses Verruca vulgaris Procedures CT DESTRUCTION BENIGN LESIONS UP TO 14 Tamy Ramos MD [address] [place] [address] Phone: tel: fax: Tamy Ramos MD [address] [place] [address] Phone: tel: fax: Referral ID Status Reason Start Date Expiration Date Visits Re quested Visits Authorized [id number] Closed 10/22/2024 11/22/2024 1 1 Reason for Visit * Reason Comments Follow-up * Biopsy Procedure (Routine) - Closed Specialty Diagnoses / Procedures Referred By Argelia beck Referred To Contact Diagnoses Verruca vulgaris Procedures CT DESTRUCTION BENIGN LESIONS UP TO 14 Tamy Ramos MD [address] [place] [address] Phone: tel: fax: Tamy Ramos MD [address] [place] [address] Phone: tel: fax: Referral ID Status Reason Start Date Expiration Date Visits Re quested Visits Authorized [id number] Closed 10/22/2024 11/22/2024 1 1 Encounter Details Date Type Department Care Team (Late st Contact Info) Description 10/22/2024 11:45 AM EDT Office Visit [facility] [address] [place] [address] Tamy Ramos MD [address] [place] [address] Verruca vulgaris (Primary Dx); Periorbital [...] Remedies Some people prefer trying home (or ruav-esh-pjhdtox) remedies to try and treat warts. Some reasonable options to try are: WartStick (available on [employer], around $11) - this is a strong [...] Type Priority Associated Diagnoses Orde r Schedule CT DESTRUCTION BENIGN LESIONS UP TO 14 CT Charge Routine Verruca vulgaris Ordered: 10/22/2024 documented as of this encounter Visit Diagnoses Diagnosis Verruca vulgaris- Primary Viral warts, unspecified Periorbital edema of both eyes Seasonal allergic rhinitis, unspecified trigger documented in this encounter Historical Medications * This list may reflect changes made after this encounter. fluticasone propionate (FLONASE) 50 mcg/actuation Nasl [place], Suspension 2 Sprays in each nostril daily. EPIPEN 0.3 mg/0.3 mL Inj Auto-Injector Take 1 auto as needed by injection route as directed. 10/21/2024 azelastine (ASTELIN) 137 mcg (0.1 %) Nasl [place], Non-Aerosol USE 1 TO 2 SPRAY(S) IN EACH NOSTRIL TWICE DAILY atomoxetine (STRATTERA) 40 mg Oral Capsule Take 40 mg by mouth daily. added in this encounter
--- OUTSIDE RECORDS SUMMARY | 2024-11-28 12:01 | XMS_ITS | Clinical Summary ---
Author Organization [facility] Address [address] [place] [phone] Phone Care Team Providers Care Video Tape Duplicator Name Role Phone Unavailable Primary Care Provider [...] then restart. 24 Packet 1 5 Active atomoxetine (STRATTERA) 40 mg Oral Capsule Take 40 mg by mouth daily. Active azelastine (ASTELIN) 137 mcg (0.1 %) Nasl [place], Non-Aerosol USE 1 TO 2 SPRAY(S) IN EACH NOSTRIL TWICE DAILY Active EPIPEN 0.3 mg/0.3 mL Inj Auto-Injector Take 1 auto as needed by injection route as directed. 5 Active fluticasone propionate (FLONASE) 50 mcg/actuation Nasl [place], Suspension 2 Sprays in each nostril daily. Active Encounters Date Type Department Care Team Description 10/22/2024 11:45 AM EDT Office Visit [facility] [address] [place] [phone] Tamy Ramos MD Verruca vulgaris (Primary Dx); Periorbital edema of both eyes; Seasonal allergic rhinitis, unspecified trigger 09/03/2024 9:00 AM EDT Office Visit [facility] [address] [place] [address] [place] [phone] Tamy Ramos MD Xerosis cutis (Primary Dx); [...] Mass Index 25.61 10/22/2024 11:52 AM EDT Plan of Treatment Health Maintenance Due Date Last Done Comments Annual Wellness Exam 1991 Hepatitis B Vaccine (1 of 3 - 19+ 3-dose series) 2007 Cervical Cancer Screening 2009 Pap Smear 2009 HPV/Pap Cotest 2018 DTaP/TDaP/Td (2 - Td or Tdap) 01/17/2022 01/18/2012 COVID-19 Vaccine (2023-2 5 season) 2024 Influenza Vaccine (#1) 2024 01/18/2012 Meningococcal B Vaccine Aged Out No l onger eligible based on patient's age to complete this topic Pneumococcal Vaccine 0-49 Aged Out No longer eligible based on patient's age to complete this topic Insurance [facility] [id number] [facility]
--- OUTSIDE RECORDS SUMMARY | 2024-11-28 12:01 | XMS_ITS | Clinical Summary ---
Author Organization [facility] Address [address] [place] [address] Care Team Providers Care Digestion Operator Name Role Phone Provider, No Known Primary [...] Pelvic an d Breast Exam 12/14/2022 12/13/2021 INFLUENZA VACCINE 10/10/2024 Pneumococcal Vaccine 0-49 Aged Out No longer eligible based on patient's age to complete this topic Insurance Care Teams Digestion Operator Relationship Specialty Start Date End Date Provider, [place] [address] PCP - General 12/02/19
== END 2024-11-27 23:59 | disposition home or self-care (01) ==
LOC: LAB.DROPOF 11-28 11:59
PROVIDERS: PCP Nurse Practitioner; Visit Provider Nurse Practitioner
DX: R35.0 Frequency of micturition (principal)
CPT/HCPCS: 87086

== ENCOUNTER 2024-12-09 07:54 | Emergency (ER) | payer MEDICAID, SELFPAY ==
--- OUTSIDE RECORDS SUMMARY | 2024-10-22 11:45 | XMS_ITS | Encounter Summary ---
Author Organization [place] [address] Care Team Providers Care Boom Boss Name Role Phone Unavailable Primary Care Provider Unavailabl e Reason for Referral * Biopsy Procedure (Routine) - Closed Specialty Diagnoses / Procedures Referred By Argelia beck Referred To Contact Diagnoses Verruca vulgaris Procedures ID DESTRUCTION BENIGN LESIONS UP TO 14 Tamy Ramos MD [address] [place] [address] Phone: tel: fax: Tamy Ramos MD [address] [place] [address] Phone: tel: fax: Referral ID Status Reason Start Date Expiration Date Visits Re quested Visits Authorized [id number] Closed 10/22/2024 11/22/2024 1 1 Reason for Visit * Reason Comments Follow-up * Biopsy Procedure (Routine) - Closed Specialty Diagnoses / Procedures Referred By Argelia beck Referred To Contact Diagnoses Verruca vulgaris Procedures ID DESTRUCTION BENIGN LESIONS UP TO 14 Tamy Ramos MD [address] [place] [address] Phone: tel: fax: Tamy Ramos MD [address] [place] [address] Phone: tel: fax: Referral ID Status Reason Start Date Expiration Date Visits Re quested Visits Authorized [id number] Closed 10/22/2024 11/22/2024 1 1 Encounter Details Date Type Department Care Team (Late st Contact Info) Description 10/22/2024 11:45 AM EDT Office Visit [facility] [address] [place] [address] Tamy Ramos MD [address] [place] [address] Verruca vulgaris (Primary Dx); Periorbital [...] Remedies Some people prefer trying home (or bduo-bde-kyqqgll) remedies to try and treat warts. Some reasonable options to try are: WartStick (available on [employer], around $11) - this is a strong [...] Type Priority Associated Diagnoses Orde r Schedule ID DESTRUCTION BENIGN LESIONS UP TO 14 ID Charge Routine Verruca vulgaris Ordered: 10/22/2024 documented as of this encounter Visit Diagnoses Diagnosis Verruca vulgaris- Primary Viral warts, unspecified Periorbital edema of both eyes Seasonal allergic rhinitis, unspecified trigger documented in this encounter Historical Medications * This list may reflect changes made after this encounter. fluticasone propionate (FLONASE) 50 mcg/actuation Nasl [place], Suspension 2 Sprays in each nostril daily. EPIPEN 0.3 mg/0.3 mL Inj Auto-Injector Take 1 auto as needed by injection route as directed. 10/21/2024 azelastine (ASTELIN) 137 mcg (0.1 %) Nasl [place], Non-Aerosol USE 1 TO 2 SPRAY(S) IN EACH NOSTRIL TWICE DAILY atomoxetine (STRATTERA) 40 mg Oral Capsule Take 40 mg by mouth daily. added in this encounter
[2024-12-09] VITALS (7 sets, daily range): BP systolic 140–183; BP diastolic 91–108; PULSE 68–115; RESP 13–16; TEMP 36.7; O2SAT 98–100; BMI 25.6
--- NOTE | 2024-12-09 07:56 | ECG_ITS ---
APPROVED REPORT Exam: Resting ECG HR:107 bpm ECG Measurements Heart Rate 107 AXES AL 133 P 61 QRSd 88 QRS 55 QT 335 T 45 QTc 398 Conclusion normal sinus tachycardia Normal axis Normal intervals No STEMI Electronically signed by : Shai Suarez, 12/09/2024 15:20:32
--- OUTSIDE RECORDS SUMMARY | 2024-12-09 08:04 | XMS_ITS | Clinical Summary ---
Author Organization [facility] Address [address] [facility] [address] [place] [phone] Phone Care Team Providers Care Industrial Relations Manager Name Role Phone Unavailable Primary Care Provider [...] azelastine (ASTELIN) 137 mcg (0.1 %) Nasl [place], Non-Aerosol USE 1 TO 2 SPRAY(S) IN EACH NOSTRIL TWICE DAILY Active EPIPEN 0.3 mg/0.3 mL Inj Auto-Injector Take 1 auto as needed by injection route as directed. 5 Active fluticasone propionate (FLONASE) 50 mcg/actuation Nasl [place], Suspension 2 Sprays in each nostril daily. Active Encounters Date Type Department Care Team Description 10/22/2024 11:45 AM EDT [facility] Visit [facility] [address] [facility] [address] [place] [phone] Tamy Ramos MD Verruca vulgaris (Primary Dx); Periorbital edema of both eyes; Seasonal allergic rhinitis, unspecified trigger from Last 3 Months Social History Tobacco Use Types Packs/Day Years Used Date Smoking Tobacco: Never Assessed Comments Unknown Sex and Gender Information Value Date Recorded Sex Assigned at Not on file Legal Sex Female 1:58 PM EDT Gender Identity Not on file Sexual Orientation Not on file Last Filed Vital Signs [...] COVID-19 Vaccine (1 - 2023-2 5 season) 2024 Influenza Vaccine (#1) 2024 01/18/2012 Meningococcal B Vaccine Aged Out No l onger eligible based on patient's age to complete this topic Pneumococcal Vaccine 0-49 Aged Out No longer eligible based on patient's age to complete this topic Insurance [facility] [id number] [facility]
--- OUTSIDE RECORDS SUMMARY | 2024-12-09 08:04 | XMS_ITS | Clinical Summary ---
Author Organization [facility] Address [address] [place] [address] Care Team Providers Care Supervisor Hand Workers Name Role Phone Provider, No Known Primary [...] to complete this topic Insurance Care Teams Supervisor Hand Workers Relationship Specialty Start Date End Date Provider, [place] [address] PCP - General 12/02/19
[2024-12-09 08:19] LABS: Hematocrit 40.5 % (37.0-47.0); Hemoglobin 13.6 g/dL (12.2-16.2); Immature Granulocytes % 0.2 %; Mean Corpuscular HGB Conc 33.6 g/dL (31.8-35.4); Mean Corpuscular Hemoglobin 28.8 pg (27.0-31.2); Mean Corpuscular Volume 85.8 fl (81-99); Nucleated Red Blood Cells % 0 %; Platelet Count 304 K/mm3 (142-424); Red Blood Count 4.72 M/mm3 (4.20-5.40); Red Cell Distribution Width-SD 41.1 fL; White Blood Count 5.1 K/mm3 (4.8-10.8)
--- NOTE | 2024-12-09 08:22 | PC.NURSE ---
Rounded on patient, provided ice water at this time.
--- NOTE | 2024-12-09 08:24 | HMH.EDCP ---
Discharge Plan Disposition Patient Disposition: Home, Self-Care Condition: Good Prescriptions Prescriptions: No Action buspirone 10 mg tablet 10 mg PO TID Qty: 90 12RF Rx Instructions: Please take 1 tablet p.o. three times daily methocarbamol 500 mg tablet 500 mg PO TID PRN (Reason: muscle spasm) Qty: 12 0RF lidocaine 4 % adhesive patch,medicated 1 patch topical DAILY PRN (Reason: pain) Qty: 10 0RF Rx Instructions: place on area, leave on for 12hrs then remove for 12 hours amoxicillin 500 mg capsule 500 mg PO BID Qty: 20 0RF atomoxetine 40 mg capsule See Rx Instructions .ROUTE .COMPLEX Qty: 30 0RF Dose Instruction: Take 1 capsule by mouth once daily Rx Instructions: Take 1 capsule by mouth once daily levocetirizine 5 mg tablet 5 mg PO DAILY Patient Comments: TAKE 1 TABLET BY MOUTH ONCE DAILY Referrals Follow up/Referrals: Provider,Referral, MD [Referring, Medical] - See instructions Activity Restrictions/Add. Instructions Additional Instructions/Restrictions: Please follow up with your primary care physician so that they know you have had chest pain and may provide further workup and monitoring in the outpatient setting. If you have any new or worsening symptoms please return. We did find an incidental ovarian cyst on your CT scans. You should continue seeing OBGYN in the outpatient setting for monitoring of your cysts. Clinical Impressions Clinical Impression: Epigastric abdominal pain Chest pain Qualifiers: Chest pain type: unspecified Qualified Code(s): R07.9 - Chest pain, unspecified Print Language Print Language: Lithuanian Discharge ED Provider: Shai Suarez General Chief Complaint: Chest Pain Stated Complaint: Chest pain Time Seen by Provider: 12/09/24 08:00 Mode of Arrival: Ambulatory Source of Information: Patient Description of Symptoms (Recalled from ER Triage Doc. by RN): Patient presents to ED for midsternal nonradiating chest pain that began this morning. Has been sick since last , being treated for strep. States pain was 8/10 when it started and is now 4/10. History of Present Illness HPI narrative: This is a 34-year-old female patient, with past medical history of anxiety, who is presenting to the emergency department today for evaluation of chest pain. Patient states that for the last 5 days she has had a viral syndrome that was initially marked by rhinorrhea and congestion and an overall feeling of malaise which has now progressed to diarrhea. She states that she has seen her primary care provider for this and they told her that she likely has norovirus and recommended that she stay well-hydrated. The patient tells me that today she was at her job and she began feeling central retrosternal chest pain that was nonradiating, but provoked diaphoresis and nausea. She went to the school nurse who measured her blood pressure and found that it was 150/100 and recommended that she come to the emergency department immediately. She states that since the symptoms began her chest pain is now resolved without any pharmacologic interventions. She does not have cough or production of phlegm. She denies abdominal pain. Related Data Home Medications ?Medication ?Instructions ?Recorded ?Confirmed levocetirizine 5 mg tablet 5 mg PO DAILY 03/03/24 12/07/24 Previous Rx's ?Medication ?Instructions ?Recorded buspirone 10 mg tablet 10 mg PO TID #90 tabs 07/03/24 atomoxetine 40 mg capsule See Rx Instructions .Route 11/06/24 .COMPLEX #30 caps lidocaine 4 % topical patch 1 patch topical DAILY PRN pain #10 11/27/24 ea methocarbamol 500 mg tablet 500 mg PO TID PRN muscle spasm #12 11/27/24 tabs amoxicillin 500 mg capsule 500 mg PO BID #20 caps 12/07/24 Allergies Allergy/AdvReac Type Severity Reaction Status Date / Time No Known Allergies Allergy Verified 12/07/24 08:19 [facility] Disclaimer: The information contained in this section may have been updated after the patient was seen, as this information can be updated by other users. Medical History (Updated 12/09/24 @ 11:41 by Shai Suarez DO) Strep throat Back pain Breast pain Pain of both breasts Bilateral nipple discharge Acute viral syndrome Sinusitis Adult ADHD Allergic rhinitis Abnormal uterine bleeding Rhus dermatitis Anxiety Surgical History Hx of cholecystectomy Hx of section Hx of tubal ligation Family History Other No significant family history Social History Smoking Status: Never smoker second hand exposure: No alcohol intake: never substance use type: denies use current occupational status: employed Travel in the last 8 weeks?: None household members: spouse housing: house current occupational exposures/hazards: No Have you lived/traveled outside [place] in past 30 days?: No Contact w/someone who lives/traveled outside US past 30 days?: No Exposure to someone with infectious disease in past 14 days?: No Do you have a fever (greater than 100.4 F or 38 C)?: No Have you tested positive for COVID-19?: No Exposed to someone with COVID-19 in past 14 days?: No Do you have a sore throat?: No Do you have a cough?: No Do you have any weakness?: No Do you have any diarrhea?: No Are you experiencing any unusual bleeding?: No Do you have any muscle aches/pain?: No Do you have any abdominal pain?: No Are you experiencing loss of taste or smell?: No Other Medical History Have you received the Flu Vaccine for this season: No Have you received the Pneumonia Vaccine: No ROS Obtained: Yes Systems reviewed as appropriate & no additional complaints except as documented Physical Exam General General appearance: other (See MDM) Respiratory Respiratory exam: Present other (See MDM) Cardiovascular Cardiovascular exam: Present other (See MDM) Neurological Exam Neurological exam: Present other (See MDM) HEART Score HEART Score HEART Score assessment performed?: Yes History (anamnesis): Moderately suspicious ECG: Normal Age: <45 years Risk factors: No known risk factors Troponin: </= normal limit HEART Score: 1 Critical Care Critical Care Time Critical Care Time: No Medical Decision Making Medical Records Medical records reviewed: Yes I reviewed the patient's medical records. Darshan Inquiry Pt receiving controlled substance: No Darshan was queried for this patient: No Vital Signs Vital Signs: 12/09/24 08:00 12/09/24 08:00 12/09/24 08:30 Temperature 98.0 F 98.0 F Temperature Source Oral Pulse Rate 115 H 86 Pulse Rate [Right] 115 H Respiratory Rate 16 16 14 Blood Pressure 174/108 H 155/100 H Blood Pressure [Right Arm] 174/108 H Blood Pressure Mean [Right Arm] 130 02 Sat by Pulse Oximetry 98 98 98 Oxygen Delivery Method Room Air Room Air 12/09/24 08:45 12/09/24 09:34 12/09/24 10:00 Temperature Temperature Source Pulse Rate 68 95 H 80 Pulse Rate [Right] Respiratory Rate 16 13 Blood Pressure 155/100 H 183/97 H 146/91 H Blood Pressure [Right Arm] Blood Pressure Mean [Right Arm] 02 Sat by Pulse Oximetry 98 100 100 Oxygen Delivery Method Room Air Room Air 12/09/24 10:30 Temperature Temperature Source Pulse Rate 77 Pulse Rate [Right] Respiratory Rate 14 Blood Pressure 154/96 H Blood Pressure [Right Arm] Blood Pressure Mean [Right Arm] 02 Sat by Pulse Oximetry 100 Oxygen Delivery Method Room Air Lab Data Labs: Lab Results 12/09/24 08:00: WBC 5.1, RBC 4.72, Hgb 13.6, Hct 40.5, MCV 85.8, MCH 28.8, MCHC 33.6, RDW 13.2, Plt Count 304, MPV 9.6, Neut % (Auto) 69.9, Lymph % (Auto) 16.4, [place] % (Auto) 9.4 H, Eos % (Auto) 3.5, Baso % (Auto) 0.6, Neut # (Auto) 3.6, Lymph # (Auto) 0.8, [place] # (Auto) 0.5, Eos # (Auto) 0.2, Baso # (Auto) 0.0, D-Dimer 0.64 H, Sodium 137, Potassium 4.2, Chloride 105, Carbon Dioxide 24, Anion Gap 12.2, BUN 17, Creatinine 0.80, Estimated Creat Clear 97, Estimated GFR 81, Est GFR ( Amer) 98, Glucose 101 H, Calcium 9.3, Total Bilirubin 0.2, AST 29, ALT 20, Alkaline Phosphatase 51, Troponin I < 0.01, Total Protein 7.4, Albumin 4.4, Globulin 3.0, Albumin/Globulin Ratio 1.5, Lipase 192, Serum HCG, Qual Negative 12/09/24 09:25: SARS-CoV-2 (PCR) Not detected, Influenza Type A (PCR) Not detected, Influenza Type B (PCR) Not detected, RSV (PCR) Not detected, Rhinovirus (PCR) Not detected 12/09/24 10:58: Troponin I < 0.01 12/09/24 08:00 12/09/24 08:00 Response Orders (Tests/Meds): ED MEDICATIONS Discontinued Medications Generic Name Dose Route Start Last Admin Trade Name Freq PRN Reason Stop Dose Admin Aspirin 325 mg 12/09/24 08:23 12/09/24 08:33 Aspirin 325mg Tablet PO 12/09/24 08:24 325 mg ONCE ONE Administration Lactated Ringer's 1,000 mls @ 999 mls/hr 12/09/24 08:11 12/09/24 11:01 Lactated Ringer's 1000 Ml Bag IV 12/09/24 09:11 Infused .Q1H1M ONE Infusion Iopamidol 80 ml 12/09/24 10:09 12/09/24 10:10 Iopamidol-370 (76%);100ml Bottle IV 12/09/24 10:10 80 ml ONCE ONE Administration Morphine Sulfate 4 mg 12/09/24 08:11 12/09/24 08:37 Morphine 4mg/Ml Syringe IV 12/09/24 08:12 4 mg ONCE ONE Administration Ondansetron HCl 4 mg 12/09/24 08:11 12/09/24 08:35 Ondansetron 4mg/2ml Vial IV 12/09/24 08:12 4 mg ONCE ONE Administration Sodium Chloride 50 ml 12/09/24 10:09 12/09/24 10:10 0.9 % Sodium Chloride 50 Ml Vial IV 12/09/24 10:10 50 ml ONCE ONE Administration Sodium Chloride 10 ml 12/09/24 10:09 12/09/24 10:10 Sodium Chloride 0.9% 10ml Syr (Rad Only) IV 12/09/24 10:10 10 ml ONCE ONE Administration ORDERS Category Date Time Status CT abdomen pelvis w con Stat Cat Scan 12/09/24 09:[address] angio chest PE protocol Stat Cat Scan 12/09/24 09:36 Completed CXR 2 view (NOT portable) [XR chest 2V] Stat Exams 12/09/24 08:26 Completed CBC w/Auto Diff [Complete Blood Count Auto Diff] Stat Lab 12/09/24 08:00 Completed CMP [Comprehensive Metabolic Panel] Stat Lab 12/09/24 08:00 Completed D-Dimer Stat Lab 12/09/24 08:00 Completed HCG Qualitative, Serum Stat Lab 12/09/24 08:00 Completed Lipase Stat Lab 12/09/24 08:00 Completed Mini Respiratory Panel Stat Lab 12/09/24 09:25 Completed Troponin I Q3H Lab 12/09/24 10:58 Completed Troponin I Q3H Lab 12/09/24 14:15 Ordered Troponin I Stat Lab 12/09/24 08:00 Completed ECG Data Tracing #1: Attestation: I reviewed this ECG and interpreted as documented below: ECG Narrative: EKG was personally interpreted by me and demonstrates sinus tachycardia at a rate of 107 bpm, normal axis, no AZ prolongation, narrow QRS, no QTc prolongation. No ST elevation or depression. No overt signs of ischemia or arrhythmia MDM Narrative Medical Decision Narrative: In summary, this is a 34-year-old female patient who is presenting to the emergency department today for evaluation of central chest pain lasting for approximately 10 minutes associated with diaphoresis and nausea. The patient does not have any comorbidities that would complicate her medical management or care. On initial evaluation of the patient they were resting comfortably in no acute distress and nontoxic in appearance. They are hemodynamically stable, saturating well room air, and are neurologically intact. On physical examination the patient is tachycardic. Heart and lung sounds are normal bilaterally. She she is mentating appropriately with a GCS of 15. She has no abdominal tenderness to palpation. Capillary refill is adequate. She is normotensive. Differential diagnosis includes ACS/UT, pneumonia, viral syndrome, pericarditis, myocarditis, among others. The patient's Wells score is a low risk and she is tachycardic so we will order a D-dimer to pursue her workup for pulmonary embolism. Initial interventions included 4 mg of morphine, 4 mg of Zofran, and 1 L of lactated Ringer's. We have also administered 325 mg of aspirin. Initial workup has consisted of hematologic labs as well as a chest x-ray. EKG does not show any diffuse ST elevations or AZ depressions that would signify pericarditis. There is also no evidence of STEMI. Please see full interpretation above. Labs personally interpreted by me demonstrate no evidence of leukocytosis or actionable anemia. CMP shows no evidence of acute kidney injury or electrolyte derangement. Initial troponin is less than 0.01, delta troponin is less than 0.01. Lipase is 192 which is within normal limits. D-dimer is elevated at 0.64. On repeat assessment the patient she is telling me that she is having severe pain in the lower chest and the epigastrium. She is still experiencing an elevated heart rate. I have added on a CT PE protocol as well as a CT scan of the abdomen and pelvis with IV contrast. CT PE study was personally interpreted by me and demonstrates no large saddle pulmonary embolus. Official radiology read is in agreement and states there is no acute abnormality. They do note that there is some mediastinal adenopathy. This is likely reactive in the setting of the viral illness she has been experiencing. CT scan of the abdomen pelvis was also personally interpreted by me and demonstrates no stranding around the pancreas to suggest pancreatitis. Official radiology read is in agreement and states that there is no acute abnormality in the abdomen or pelvis. They do note that there is a adnexal cyst noted. I have clarified this with the patient she states that she has a known history of ovarian cyst. She is not having lower quadrant Miguel pain so I am not concerned about torsion at this time. The exact etiology of this patient's intermittent chest pain is unclear. We have effectively ruled out the serious life-threatening emergencies here in the emergency department today. On repeat assessment she is resting comfortably no acute distress and states that her symptoms have resolved. We will have her follow-up with her primary care physician in the outpatient setting and return to the emergency department if she has any new or worsening symptoms. At this time all questions have been answered and all parties are agreeable with this plan
--- NOTE | 2024-12-09 08:26 | XR_ITS ---
FINAL REPORT TECHNIQUE: Chest PA & Lateral CLINICAL HISTORY: Chest pain COMPARISON: None FINDINGS: 2 views of the chest were performed. The heart size is normal. The mediastinum is within normal limits. There is no acute cardiopulmonary process. There are no pleural effusions. There is no pneumothorax. The bony thorax appears intact. IMPRESSION: No acute cardiopulmonary process. Reviewed, Interpreted and Dictated by Mal White MD Transcribed by Brisa Aguilar Authenticated and [facility] [place] [place]
[2024-12-09] MEDS: ASPIRIN 325MG TABLET 325 MG PO (08:33)
[2024-12-09 08:34] LABS: Alanine Aminotransferase 20 U/L (12-78); Albumin Level 4.4 g/dl (3.5-5.0); Albumin/Globulin Ratio 1.5 (1.1-1.8); Alkaline Phosphatase 51 U/L (38-126); Anion Gap 12.2 mEq/L (5-15); Aspartate Amino Transferase 29 U/L (14-36); Bilirubin,Total 0.2 mg/dl (0.2-1.3); Blood Urea Nitrogen 17 mg/dl (7-17); Calcium 9.3 mg/dl (8.4-10.2); Carbon Dioxide 24 mmol/L (22.0-30.0); Chloride 105 mmol/L (98-107); Creatinine Clearance Estimated 97 mL/min (50-200); Creatinine,Serum 0.80 mg/dl (0.52-1.04); Estimated Glomerular Filt Rate 81 ml/min (>60); GFR (African American) 98 ML/MIN (>60); Globulin 3.0 g/dL (1.3-3.2); Glucose 101 mg/dl (74-100); Lipase 192 U/L (23-300); Potassium 4.2 mmoL/L (3.5-5.1); Sodium 137 mmol/L (136-145); Total Protein,Serum 7.4 g/dl (6.3-8.2)
[2024-12-09] MEDS: LACTATED RINGERS 1000ML 1,000 ML 999 ML IV (08:34)
[2024-12-09] MEDS: ONDANSETRON 4MG/2ML VIAL 4 MG IV (08:35)
[2024-12-09] MEDS: MORPHINE 4MG/ML SYRINGE 4 MG IV (08:37)
[2024-12-09 08:38] LABS: D-Dimer 0.64 ug/mL (0.0-0.5)
[2024-12-09 08:51] LABS: Troponin I < 0.01 ng/ml (0.00-0.034)
[2024-12-09 09:30] LABS: Coronavirus 19, PCR Not Detected (NotDetected); Influenza A, PCR Not Detected (NotDetected); Influenza B, PCR Not Detected (NotDetected)
--- NOTE | 2024-12-09 09:36 | CT_ITS ---
FINAL REPORT TECHNIQUE: The patient was injected with IV contrast. Axial images were obtained through the chest in a PE protocol. 3-D reconstruction images were also performed. Individualized dose reduction techniques using automated exposure control or adjustment of the MA and/or KV according to patient's size were employed. CLINICAL HISTORY: Tachycardia, chest pain, elevated dimer COMPARISON: None FINDINGS: Mediastinal vasculature is adequately opacified. No pulmonary artery filling defects are identified to suggest PE. There is no aortic dissection. There is significant mediastinal and hilar adenopathy. A right hilar lymph node measures 2.4 x 1.8 cm. Prevascular lymphadenopathy measures up to 2.0 x 1.2 cm. Subcarinal lymph nodes are also noted. The heart size is normal. There is no pericardial or pleural effusion. Limited images of the upper abdomen are unremarkable. No suspicious infiltrate or nodule is identified. IMPRESSION: No pulmonary embolus, dissection, or aneurysm. Moderate mediastinal and hilar adenopathy could be reactive or neoplastic. Follow-up CT may be of value. Reviewed, Interpreted and Dictated by Mal White MD Transcribed by Nel Hollins Authenticated and [facility]
--- NOTE | 2024-12-09 09:36 | CT_ITS ---
FINAL REPORT TECHNIQUE: After the administration of intravenous contrast, axial images were obtained through the abdomen and pelvis by computed tomography. The study was performed with techniques to keep radiation dose as low as reasonably achievable, (ALARA). Individual dose reduction techniques using automated exposure control or adjustment of mA and/or kV according to the patient's size were employed. CLINICAL HISTORY: Abdominal pain COMPARISON: 04/03/2024 FINDINGS: Abdomen: The lung bases are clear. The liver parenchyma is homogeneous. The gallbladder is surgically absent. The spleen, pancreas, adrenals and kidneys appear unremarkable. The aorta is normal in caliber. There is no free fluid or adenopathy. Pelvis: There is a moderate amount of stool throughout the colon. The appendix is not identified. Small calcification in the wall of the urinary bladder is stable. A dominant fibroid is noted in the right myometrium measuring 3.0 cm in diameter. There is a cystic lesion in the right adnexa measuring 4.1 x 3.7 cm. There is no free fluid or adenopathy. IMPRESSION: Fibroid in the right myometrium. 4.1 cm right adnexal cyst, likely ovarian. Recommend follow-up ultrasound in 6 to 10 weeks. No localized inflammatory reaction. Reviewed, Interpreted and Dictated by Mal White MD Transcribed by Nel Hollins Authenticated and [facility]
[2024-12-09 09:45] LABS: HCG Qualitative, Serum Negative (Negative)
[2024-12-09] MEDS: 0.9 % SODIUM CHLORIDE 50 ML VIAL IV (10:10)
[2024-12-09] MEDS: SODIUM CHLORIDE 0.9% 10ML SYR (RAD ONLY) 10 ML IV (10:10)
[2024-12-09] MEDS: IOPAMIDOL-370 (76%);100ML BOTTLE 80 ML IV (10:10)
[2024-12-09 11:28] LABS: Troponin I < 0.01 ng/ml (0.00-0.034)
== END 2024-12-09 11:49 | disposition home or self-care (01) ==
PROVIDERS: Emergency Provider Student in an Organized Health Care Education/Training Program; PCP Nurse Practitioner Family
DX: R07.9 Chest pain, unspecified (principal); R10.13 Epigastric pain; R00.0 Tachycardia, unspecified; R03.0 Elevated blood-pressure reading, without diagnosis of hypertension
CPT/HCPCS: 71046; 71275; 74177; 80053; 83690; 84484; 84703; 85025; 85378; 87631; 93005; 96361; 96374; 96375; 99285; J2270; J2405; J7120; Q9967

== ENCOUNTER 2024-12-10 13:52 | Outpatient (CLI) | payer MEDICAID, SELFPAY ==
--- OUTSIDE RECORDS SUMMARY | 2024-10-22 11:45 | XMS_ITS | Encounter Summary ---
Author Organization [place] [address] Care Team Providers Care Prison Officer Name Role Phone Unavailable Primary Care Provider Unavailabl e Reason for Referral * Biopsy Procedure (Routine) - Closed Specialty Diagnoses / Procedures Referred By Argelia beck Referred To Contact Diagnoses Verruca vulgaris Procedures ME DESTRUCTION BENIGN LESIONS UP TO 14 Tamy Ramos MD [address] [place] [address] Phone: tel: fax: Tamy Ramos MD [address] [place] [address] Phone: tel: fax: Referral ID Status Reason Start Date Expiration Date Visits Re quested Visits Authorized [id number] Closed 10/22/2024 11/22/2024 1 1 Reason for Visit * Reason Comments Follow-up * Biopsy Procedure (Routine) - Closed Specialty Diagnoses / Procedures Referred By Argelia beck Referred To Contact Diagnoses Verruca vulgaris Procedures ME DESTRUCTION BENIGN LESIONS UP TO 14 Tamy Ramos MD [address] [place] [address] Phone: tel: fax: Tamy Ramos MD [address] [place] [address] Phone: tel: fax: Referral ID Status Reason Start Date Expiration Date Visits Re quested Visits Authorized [id number] Closed 10/22/2024 11/22/2024 1 1 Encounter Details Date Type Department Care Team (Late st Contact Info) Description 10/22/2024 11:45 AM EDT Office Visit [facility] [address] [place] [address] Tamy Ramos MD [address] [place] [address] Verruca vulgaris (Primary Dx); Periorbital edema of both eyes; Seasonal allergic rhinitis, unspecified trigger Social History Tobacco Use Types Packs/Day Years [...] - - Weight 63.5 kg (140 lb) 10/22/2024 11:52 AM EDT Height 157.5 cm (5' 2 ) 10/22/2024 11:52 AM EDT Body Mass Index 25.61 10/22/2024 11:52 AM EDT documented in this encounter Progress Notes * Tamy Ramos MD - 10/22/2024 11:45 AM EDT CC: VV Patient established care with me 09/03/24 at which time 1 wart on the R palm was treated with cryotherapy, I recommended Urea 40% cre and Imiquimod. Additionally I recfommended Fexofenadine 180 mg daily for periorbital edema/ allergic rhinitis. Assessment and Plan: Verruca Vulgaris- R palm (1) - improving but not at treatment goal since LV she started imiquimod and urea, has notable perilesional erythema but still with persistent lesion. med management: d/c imiquimod; lesion was pared today (benign destruction) and layer of Aquaphor was applied. - continue aquaphor daily Periorbital Edema Allergic rhinitis - continue Fexofenadine 180 mg daily, continue current antihistamine, recommended caffeine containing topical solns at last visit History of Present Illness: Lenora Jaime is a 34 y.o. female who presents for a f/u noting that she thinks her wart may have resolved but she can still feel a small bump under her skin. She also notes improvement in the swellingaround her eyes since being on the fexofenadine. Medical History: There is no problem list on file for this patient. Medications: Current Outpatient Medications on File Prior to Visit Medication Sig Dispense Refill busPIRone (BUSPAR) 10 mg Oral Tablet Take 10 mg by mouth 3 times daily. fexofenadine (SIMONE) 180 mg Oral Tablet Take 1 Tablet by mouth daily. 30 Tablet 2 imiquimod (ALDARA) 5 % Top Cream in Packet Clip corner of packet and apply a small amount to warts twice a day as directed. If irritation develops, hold med for a few days then restart. 24 Packet 1 levocetirizine (XYZAL) 5 mg Oral Tablet Take 5 mg by mouth daily. urea (CARMOL) 40 % Top Cream Apply twice daily to wart 85 g 11 No current facility-administered medications on file prior to visit. Allergies: No Known Allergies Family History: No family history on file. Social History: Exam: Well-appearing patient in no apparent distress. Mood and affect within normal limits A skin examination was performed including the face and right hand Exam performed with Bettey Rushing MA. There were no vitals taken for this visit. Pertinent exam findings noted in assessment and plan. Return to clinic PRN, sooner if needed. Strict return precautions discussed. All concerns and questions addressed at today's visit. Patient understands to contact us with any interim concerns. Tamy Ramos MD cc. No primary care provider on file. documented in this encounter Miscellaneous Notes * Patient Instructions - Bettye Pacheco MA - 10/22/2024 11:[address] Ramos's Warts (AKA verruca) [...] Remedies Some people prefer trying home (or rfeu-crp-uwrsxcl) remedies to try and treat warts. Some reasonable options to try are: WartStick (available on [employer], around $11) - this is a strong [...] documented in this encounter Plan of Treatment Scheduled Orders Name Type Priority Associated Diagnoses Orde r Schedule ME DESTRUCTION BENIGN LESIONS UP TO 14 ME Charge Routine Verruca vulgaris Ordered: 10/22/2024 documented as of this encounter Visit Diagnoses Diagnosis Verruca vulgaris- Primary Viral warts, unspecified Periorbital edema of both eyes Seasonal allergic rhinitis, unspecified trigger documented in this encounter Historical Medications * This list may reflect changes made after this encounter. fluticasone propionate (FLONASE) 50 mcg/actuation Nasl [place], Suspension 2 Sprays in each nostril daily. EPIPEN 0.3 mg/0.3 mL Inj Auto-Injector Take 1 auto as needed by injection route as directed. 10/21/2024 azelastine (ASTELIN) 137 mcg (0.1 %) Nasl [place], Non-Aerosol USE 1 TO 2 SPRAY(S) IN EACH NOSTRIL TWICE DAILY atomoxetine (STRATTERA) 40 mg Oral Capsule Take 40 mg by mouth daily. added in this encounter
--- OUTSIDE RECORDS SUMMARY | 2024-12-10 13:54 | XMS_ITS | Clinical Summary ---
Author Organization [facility] Address [address] [place] [phone] Phone Care Team Providers Care Yard Clerk Name Role Phone Unavailable Primary Care Provider [...] azelastine (ASTELIN) 137 mcg (0.1 %) [facility], Non-Aerosol USE 1 TO 2 SPRAY(S) IN EACH NOSTRIL TWICE DAILY Active EPIPEN 0.3 mg/0.3 mL Inj Auto-Injector Take 1 auto as needed by injection route as directed. 5 Active fluticasone propionate (FLONASE) 50 mcg/actuation [facility], Suspension 2 Sprays in each nostril daily. Active Encounters Date Type Department Care Team Description 10/22/2024 11:45 AM EDT Office Visit [facility] [address] [place] [phone] Tamy Ramos MD Verruca vulgaris (Primary [...] to complete this topic Insurance [facility] [place] [facility] [id number] [facility]
--- OUTSIDE RECORDS SUMMARY | 2024-12-10 13:54 | XMS_ITS | Clinical Summary ---
Author Organization [facility] Address [address] [place] [address] Care Team Providers Care Java Mobile Developer Name Role Phone Provider, No Known Primary [...] patient's age to complete this [place] [id number] Care Teams Java Mobile Developer Relationship Specialty Start Date End Date Provider, [place] [address] PCP - General 12/02/19
[2024-12-10 14:16] LABS: Hematocrit 38.5 % (37.0-47.0); Hemoglobin 12.8 g/dL (12.2-16.2); Immature Granulocytes % 0 %; Mean Corpuscular HGB Conc 33.2 g/dL (31.8-35.4); Mean Corpuscular Hemoglobin 29.0 pg (27.0-31.2); Mean Corpuscular Volume 87.1 fl (81-99); Nucleated Red Blood Cells % 0 %; Platelet Count 295 K/mm3 (142-424); Red Blood Count 4.42 M/mm3 (4.20-5.40); Red Cell Distribution Width-SD 42.3 fL; White Blood Count 5.3 K/mm3 (4.8-10.8)
[2024-12-10 14:49] LABS: Alanine Aminotransferase 27 U/L (12-78); Albumin Level 4.0 g/dl (3.5-5.0); Albumin/Globulin Ratio 1.5 (1.1-1.8); Alkaline Phosphatase 65 U/L (38-126); Aspartate Amino Transferase 28 U/L (14-36); Bilirubin,Total 0.4 mg/dl (0.2-1.3); Blood Urea Nitrogen 12 mg/dl (7-17); Calcium 9.0 mg/dl (8.4-10.2); Carbon Dioxide 28 mmol/L (22.0-30.0); Chloride 105 mmol/L (98-107); Creatinine,Serum 0.80 mg/dl (0.52-1.04); Estimated Glomerular Filt Rate 81 ml/min (>60); GFR (African American) 98 ML/MIN (>60); Globulin 2.6 g/dL (1.3-3.2); Glucose 88 mg/dl (74-100); Sodium 140 mmol/L (136-145); Total Protein,Serum 6.6 g/dl (6.3-8.2)
[2024-12-10 15:01] LABS: Anion Gap 11.3 mEq/L (5-15); Potassium 4.3 mmoL/L (3.5-5.1)
[2024-12-10 15:05] LABS: Free Thyroxine Index 2.3 ug/dL (5.93-13.13); T4 (Thyroxine) 7.7 ug/dl (5.53-11.0); Triiodothryronine (T3) Uptake 30 % (23.5-40.5)
[2024-12-10 15:18] LABS: Thyroid Stimulating Hormone 0.33 uIU/mL (0.465-4.68)
[2024-12-10 15:41] LABS: Hemoglobin A1C 5.0 % (4.0-6.0)
== END 2024-12-10 23:59 | disposition home or self-care (01) ==
LOC: LAB 13:53
PROVIDERS: PCP Nurse Practitioner Family; Visit Provider Nurse Practitioner Family
DX: Z13.89 Encounter for screening for other disorder (principal); R53.83 Other fatigue
CPT/HCPCS: 36415; 80053; 82652; 83036; 84436; 84443; 84479; 85025

== ENCOUNTER 2025-01-10 08:54 | Outpatient (CLI) | payer MEDICAID, SELFPAY ==
--- OUTSIDE RECORDS SUMMARY | 2025-01-10 08:57 | XMS_ITS | Continuity of Care Document ---
Author Organization BHARAT VIRIDIANA [facility] & [place], [facility] - P-[address] Address [address] [place] [phone] Assessment No assessment recorded. Plan of Treatment Reminders Order Date Submit Date Provider Last Modified By Organization Details Last Modified Time Details Appointments None record ed. Lab None record ed. Referral None record ed. Procedures None record ed. Surgeries None record ed. Imaging None record ed. Medication Orders None record ed. Patient TargetsNo targets recorded. Patient InstructionsNo instructions recorded. Reason for Referral None Reported. Problems Name Problem SNOMED Code Status Onset Date Resolution Date Notes Provider Name and Address Organization Details Recorded Time Allergic rhinitis caused by pollen 71627132 Active 025 Shericemark Mcneill null, [place] - [facility] & [place] 5 15:39:34 Allergic rhinitis 23476973 Active 025 Shericemark Mcneill null, [place] - [facility] & [place] 5 09:49:15 Problem Notes None recorded. Procedures Surgical History Date Name Laterality Status Provider Name and Address Organization Details Recorded Time 5 Allergy Injection (Triple) completed Sherice Charito [place] - [facility] - [place] & [place] 12/31/2024 16:19:29 5 Allergy Injection (Triple) completed Sherice Charito [place] - [facility] - [place] & [place] 12/24/2024 16:36:10 5 Allergy Injection (Triple) completed Sherice Charito [place] - [place] & [place] 12/10/2024 12:05:12 5 Allergy Injection (Triple) completed Sherice Charito [place] - [place] & [place] 11/26/2024 16:03:02 5 Allergy Injection (Triple) completed Sherice Charito [place] - [place] & [place] 11/12/2024 16:09:50 5 Allergy Injection (Triple) completed Sherice Charito [place] - [place] & [place] 10/15/2024 15:30:48 5 Allergy Injection (Triple) completed Sherice Charito [place] - [place] & [place] 10/08/2024 10:01:50 5 Allergy Injection (Triple) completed Sherice Charito [place] - [facility] - [place] & [place] 10/01/2024 10:26:22 5 Allergy Injection (Triple) completed Sherice Charito [place] - [place] & [place] 09/24/2024 12:11:26 5 Allergy Injection (Triple) completed Sherice Charito [place] - [place] & [place] 09/10/2024 09:49:08 5 Allergy Injection (Triple) completed Sherice Charito [place] [facility] - [place] & [place] 09/03/2024 15:37:41 section completed Sherice Charito [place] - [facility] - [place] & [place] 09/03/2024 15:06:02 Imaging Results None recorded. Procedure Notes None recorded. Medical Equipment None Reported. Allergies No known drug allergies Medications Name Sig Start Date Stop Date Status Note LastModified by Organization Details LastModified Time amoxicillin 500 mg capsule TAKE 1 CAPSULE BY MOUTH TWICE DAILY active Not Available Not Available No t Available clindamycin HCl 300 mg capsule TAKE 1 CAPSULE BY MOUTH THREE TIMES DAILY UNTIL GONE 08/26 completed Not Available Not Available Not Available ibuprofen 800 mg tablet TAKE 1 TABLET BY MOUTH EVERY 8 HOURS NEEDED FOR PAIN 09/03 completed Not Available Not Available Not Available urea 40 % topical cream APPLY TWICE DAILY TO WART active Not Available Not Available No t Available fexofenadin e 180 mg tablet TAKE 1 TABLET BY MOUTH ONCE DAILY active Not Available Not Available No t Available famotidine 20 mg tablet TAKE 1 TABLET BY MOUTH ONCE DAILY 09/03 completed Not Available Not Available Not Available imiquimod 5 % topical cream packet CLIP CORNER OF PACKET AND APPLY A SMALL AMOUNT TO WARTS TWICE A DAY DIRECTED. IF IRRITATIO N DEVELOPS, HOLD MED FOR A FEW DAYS THEN RESTART. active Not Available Not Available No t Available buspirone 10 mg tablet TAKE 1 TABLET BY MOUTH TWICE DAILY active Not Available Not Available No t Available omeprazole 20 mg capsule,del ayed release TAKE 1 CAPSULE BY MOUTH ONCE DAILY 09/03 completed Not Available Not Available Not Available azelastine 137 mcg (0.1 %) nasal spray USE 1 TO 2 SPRAY(S) IN EACH NOSTRIL TWICE DAILY active Not Available Not Available No t Available fluticasone propionate 50 mcg/actuati on nasal spray,suspe nsion USE 2 SPRAY(S) IN EACH NOSTRIL ONCE DAILY active Not Available Not Available No t Available Ventolin HFA 90 mcg/actuati on aerosol inhaler INHALE 2 PUFFS BY MOUTH EVERY 4 TO 6 HOURS NEEDED FOR WHEEZING, COUGHING AND SHORTNESS OF BREATH active Not Available Not Available No t Available Adderall XR 15 mg capsule,ext ended release TAKE 1 CAPSULE BY MOUTH ONCE DAILY 09/03 completed Not Available Not Available Not Available atomoxetine 40 mg capsule TAKE 1 CAPSULE BY MOUTH ONCE DAILY active Not Available Not Available No t Available levocetiriz ine 5 mg tablet TAKE 1 TABLET BY MOUTH ONCE DAILY active Not Available Not Available No t Available Abimbola Allergy active Not Available Not Available Not Available EpiPen 2-Magdy 0.3 mg/0.3 mL injection, auto-inject or Take 1 auto as needed by injection route as directed. 2024 active Not Available Not Available Not Avai lable Vitals None Recorded Social History None recorded. Functional Status None recorded. Mental Status None recorded. Family History Nothing Reported. Medical History Condition Response Allergies/Hayfever Y Acid Reflux (GERD) Y Gynecological HistoryNo gynecological history recorded. Obstetrics History GPAL:G 0 P 0 0 0 0 Past Encounters Encounter ID Performer Location Encounter Start Date Encounter Closed Date Diagnosis/Indication Diagnosis SNOMED-CT Code Diagnosis ICD10 Code Diagnosis IMO Codes Diagnosis Note [id number] Jenny Rodriguez MD [facility] - [facility] [address] [place] [address] 11/11/2024 15:08:41 11/12/2024 08:11:49 Allergic rhinitis caused by pollen 37685682 J30.1 [id number] [id number] Jenny Rodriguez MD [facility] of [place] [address] [address] [place] [address] 11/12/2024 15:52:48 11/12/2024 15:53:00 Allergic rhinitis 34243992 J30.9 [id number] Patient here for allergy injection given by Sherice RAVI. Patient waited in the office for 10 minutes with no reaction. Patient will return in one week for next injection. [id number] Jenny Rodriguez MD [facility] of [address] [address] 11/26/2024 15:46:45 11/26/2024 15:51:35 Allergic rhinitis 68675126 J30.9 [id number] Patient here for allergy injection given by Sherice RVAI. with no reaction. Patient will return in one week for next injection. Health Concerns Section Related Observation LastModified by Organization Detai ls LastModified Time None Recorded Concern Status LastModified by Organization Details LastModified Time None Recorded Payers Encounter Date Sequence Insurance Name Policy Number Policy Mccall Covered Member ID Mccall Member ID Guarantor Name 11/26/2024 1 [facility] (MEDICAID HMO) Lenora Jaime [id number] OBGyn Episode No OBEpisode recorded.
--- OUTSIDE RECORDS SUMMARY | 2025-01-10 08:57 | XMS_ITS | Continuity of Care Document ---
Author Organization BHARAT VIRIDIANA [facility] & [place], [facility] - P-[address] Address [address] [place] [phone] Assessment No assessment recorded. Plan of Treatment [...] Recorded Time Allergic rhinitis caused by pollen 56250722 Active 025 Shericemark Mcneill null, [place] - [facility] & [place] 5 15:39:34 Allergic rhinitis 01839308 Active 025 Shericemark Mcneill null, BHARAT - [facility] & [place] 5 09:49:15 Problem Notes None recorded. Procedures Surgical History Date Name Laterality Status Provider Name and Address Organization Details Recorded Time 5 Allergy Injection (Triple) completed Sherice Charito [place] - [facility] - [place] & [place] 12/31/2024 16:19:29 5 Allergy Injection (Triple) completed Sherice Charito [place] [facility] & [place] 12/24/2024 16:36:10 5 Allergy Injection (Triple) completed Sherice Charito [place] [facility] - [place] & [place] 12/10/2024 12:05:12 5 Allergy Injection (Triple) completed Sherice Charito [place] & [place] 11/26/2024 16:03:02 5 Allergy Injection (Triple) completed Sherice Charito [place] & [place] 11/12/2024 16:09:50 5 Allergy Injection (Triple) completed Sherice Charito [place] & [place] 10/15/2024 15:30:48 5 Allergy Injection (Triple) completed Sherice Charito [place] [facility] - [place] & [place] 10/08/2024 10:01:50 5 Allergy Injection (Triple) completed Sherice Charito [place] & [place] 10/01/2024 10:26:22 5 Allergy Injection (Triple) completed Sherice Charito [place] & [place] 09/24/2024 12:11:26 5 Allergy Injection (Triple) completed Sherice Charito [place] & [place] 09/10/2024 09:49:08 5 Allergy Injection (Triple) completed Sherice Char[place] & [place] 09/03/2024 15:37:41 section completed Sherice Charito [place] [facility] & [place] 09/03/2024 15:06:02 Imaging Results None recorded. Procedure [...] ICD10 Code Diagnosis IMO Codes Diagnosis Note [id number] Jenny Rodriguez MD [facility] [place] [address], [place] [address] 10/15/2024 15:19:10 10/15/2024 15:19:28 Allergic rhinitis 39681184 J30.9 [id number] Patient is here for allergy injection in bilateral arms given by Sherice RAVI. Patient tolerated injection well and will return in one week for her next injection. [id number] Jenny Rodriguez MD [facility] of [address] [address] 10/21/2024 12:47:52 10/21/2024 13:51:20 Allergic rhinitis 13065394 J30.9 [id number] Patient here for allergy skin testing. Tested by Moriah Gasca CMA. Patient tolerated test well, please see scanned in document for results. Patient will be continuing allergy injections in [place]. [id number] Jenny Rodriguez MD [facility] of [address] [address] 11/11/2024 15:08:41 11/12/2024 08:11:49 Allergic rhinitis caused by pollen 90113635 J30.1 [id number] Jenny Rodriguez MD [facility] of [facility] [facility] [place] [address] 11/12/2024 15:52:48 11/12/2024 15:53:00 Allergic rhinitis 77335021 J30.9 [id number] Patient here for allergy injection given by [...] Member ID Mccall Member ID Guarantor Name 11/12/2024 1 [facility] (MEDICAID HMO) Lenora A Addison [id number] OBGyn Episode No OBEpisode recorded.
--- OUTSIDE RECORDS SUMMARY | 2025-01-10 08:57 | XMS_ITS | Continuity of Care Document ---
Author Organization BHARAT VIRIDIANA [facility] & [place], [facility] - P-[address] Address [address] [place] [phone] Assessment No assessment recorded. Plan of Treatment [...] Recorded Time Allergic rhinitis caused by pollen 73510284 Active 025 Shericemark Mcneill null, [place] - [facility] & [place] 5 15:39:34 Allergic rhinitis 11207278 Active 025 Shericemark Mcneill null, [place]AT - [facility] & [place] 5 09:49:15 Problem Notes None recorded. Procedures Surgical History Date Name Laterality Status Provider Name and Address Organization Details Recorded Time 5 Allergy Injection (Triple) completed Sherice Charito [place] - [facility] - [place] & [place] 12/31/2024 16:19:29 5 Allergy Injection (Triple) completed Sherice Charito [place] [facility] & [place] 12/24/2024 16:36:10 5 Allergy Injection (Triple) completed Sherice Charito [place] [facility] & [place] 12/10/2024 12:05:12 5 Allergy Injection (Triple) completed Sherice Charito [place] & [place] 11/26/2024 16:03:02 5 Allergy Injection (Triple) completed Sherice Char[place] & [place] 11/12/2024 16:09:50 5 Allergy Injection (Triple) completed Sherice Charito [place] & [place] 10/15/2024 15:30:48 5 Allergy Injection (Triple) completed Sherice Charito [place] [facility] & [place] 10/08/2024 10:01:50 5 Allergy Injection (Triple) completed Sherice Charito [place] [facility] & [place] 10/01/2024 10:26:22 5 Allergy Injection (Triple) completed Sherice Char[place] [facility] & [place] 09/24/2024 12:11:26 5 Allergy Injection (Triple) completed Sherice Char[place] [facility] & [place] 09/10/2024 09:49:08 5 Allergy Injection (Triple) completed Sherice Charito [place] [facility] & [place] 09/03/2024 15:37:41 section completed Sherice Charito [place] [facility] - [place] & [place] 09/03/2024 15:06:02 Imaging Results None [...] History Nothing Reported. Medical History Condition Response Acid Reflux (GERD) Y Allergies/Hayfever Y Gynecological HistoryNo gynecological history recorded. Obstetrics History GPAL:G 0 P 0 0 0 0 Past Encounters Encounter ID Performer Location Encounter Start Date Encounter Closed Date Diagnosis/Indication Diagnosis SNOMED-CT Code Diagnosis ICD10 Code Diagnosis IMO Codes Diagnosis Note [id number] Jenny Rodriguez MD [facility] of [facility] [place] [address], [facility] [place] [address] 11/26/2024 15:46:45 11/26/2024 15:51:35 Allergic rhinitis 54736514 J30.9 [id number] Patient here for allergy injection given by Sherice RAVI. with no reaction. Patient will return in one week for next injection. [id number] Jenny Rodriguez MD [facility] [place] [address] [address] [place] [address] 12/10/2024 11:30:29 12/10/2024 11:30:43 Allergic rhinitis 85640763 J30.9 [id number] Patient here for allergy injection given by Sherice Mcneill CCMA. with no reaction. Patient will return in one week for next injection. [id number] Jenny Rodriguez MD [facility] [place] [address] [address] [place] [phone] 12/24/2024 15:45:50 12/24/2024 15:47:04 Allergic rhinitis 80862158 J30.9 [id number] Patient here for allergy injection given by Sherice Mcneill [facility]. with no reaction. Patient will return in one week for next injection. Health Concerns Section Related Observation LastModified by Organization Detai ls LastModified Time None Recorded Concern Status LastModified by Organization Details LastModified Time None Recorded Payers Encounter Date Sequence Insurance Name Policy Number Policy Mccall Covered Member ID Mccall Member ID Guarantor Name 12/24/2024 1 [facility] (MEDICAID HMO) Lenora Jaime [id number] OBGyn Episode No OBEpisode recorded.
--- OUTSIDE RECORDS SUMMARY | 2025-01-10 08:57 | XMS_ITS | Continuity of Care Document ---
Author Organization BHARAT VIRIDIANA [facility] & [place], [facility] - P-[address] Address [address] [place] [phone] Assessment No assessment recorded. Plan of Treatment [...] Recorded Time Allergic rhinitis caused by pollen 05102771 Active 025 Shericemark Mcneill null, [place] - [facility] & [place] 5 15:39:34 Allergic rhinitis 88377777 Active 025 Shericemark Mcneill null, [place]ARAT - [facility] & [place] 5 09:49:15 Problem Notes None recorded. Procedures Surgical History Date Name Laterality Status Provider Name and Address Organization Details Recorded Time 5 Allergy Injection (Triple) completed Sherice Charito [place] - [facility] - [place] & [place] 12/31/2024 16:19:29 5 Allergy Injection (Triple) completed Sherice Charito [place] [facility] & [place] 12/24/2024 16:36:10 5 Allergy Injection (Triple) completed Sherice Charito [place] [facility] & [place] 12/10/2024 12:05:12 5 Allergy Injection (Triple) completed Sherice Charito [place] [facility] & [place] 11/26/2024 16:03:02 5 Allergy Injection (Triple) completed Sherice Charito [place] & [place] 11/12/2024 16:09:50 5 Allergy Injection (Triple) completed Sherice Charito [place] [facility] & [place] 10/15/2024 15:30:48 5 Allergy Injection (Triple) completed Sherice Charito [place] [facility] & [place] 10/08/2024 10:01:50 5 Allergy Injection (Triple) completed Sherice Charito [place] [facility] & [place] 10/01/2024 10:26:22 5 Allergy Injection (Triple) completed Sherice Charito [place] [facility] & [place] 09/24/2024 12:11:26 5 Allergy Injection (Triple) completed Sherice Charito [place] [facility] & [place] 09/10/2024 09:49:08 5 Allergy Injection (Triple) completed Sherice Charito [place] [facility] & [place] 09/03/2024 15:37:41 section completed Sherice Charito [place] [facility] & [place] 09/03/2024 15:06:02 Imaging Results None [...] ICD10 Code Diagnosis IMO Codes Diagnosis Note [id number] Jenny Rodriguez MD [facility] - [facility] [address] [place] [address] 11/11/2024 15:08:41 11/12/2024 08:11:49 Allergic rhinitis caused by pollen 87844053 J30.1 [id number] Jenny Rodriguez MD [facility] of [place] [address] 11/12/2024 15:52:48 11/12/2024 15:53:00 Allergic rhinitis 79305516 J30.9 [id number] Patient here for allergy injection given by Sherice Mcneill CCMA. Patient waited in the office for 10 minutes with no reaction. Patient will return in one week for next injection. [id number] Jenny Rodriguez MD [facility] of [place] [address] 11/26/2024 15:46:45 11/26/2024 15:51:35 Allergic rhinitis 51500781 J30.9 [id number] Patient here for allergy injection given by Sherice Mcneill CCMA. with no reaction. Patient will return in one week for next injection. [id number] Jenny Rodriguez MD [facility] of [place] [address] 12/10/2024 11:30:29 12/10/2024 11:30:43 Allergic rhinitis 74963297 J30.9 [id number] Patient here for allergy injection given by [...] Member ID Mccall Member ID Guarantor Name 12/10/2024 1 [facility] (MEDICAID HMO) Lenora Jaime [id number] OBGyn Episode No OBEpisode recorded.
--- OUTSIDE RECORDS SUMMARY | 2025-01-10 08:57 | XMS_ITS | Data Portability ---
Author Organization [facility] [place] [facility] [place] [facility] ADMIN Address [address] [place] [phone] Assessment No assessment recorded. Plan of Treatment [...] Recorded Time Allergic rhinitis caused by pollen [id number] Active 025 Sherice Charito null, [place] - [facility] [place] 5 15:39:34 Allergic rhinitis 18499630 Active 025 Sherice Charito [place], [place] [facility] [place] 5 09:49:15 Problem Notes None recorded. Procedures Surgical History Date Name Laterality Status Provider Name and Address Organization Details Recorded Time 5 Allergy Injection (Triple) completed Sherice Charito [place] [facility] [place] 12/31/2024 16:19:29 5 Allergy Injection (Triple) completed Sherice Charito [place] [facility] [place] 12/24/2024 16:36:10 5 Allergy Injection (Triple) completed Sherice Charito [place] [facility] [place] 12/10/2024 12:05:12 5 Allergy Injection (Triple) completed Sherice Charito [place] [facility] [place] 11/26/2024 16:03:02 5 Allergy Injection (Triple) completed Sherice Charito [place] [facility] [place] 11/12/2024 16:09:50 5 Allergy Injection (Triple) completed Sherice Charito [place] [facility] [place] 10/15/2024 15:30:48 5 Allergy Injection (Triple) completed Sherice Charito [place] [facility] [place] 10/08/2024 10:01:50 5 Allergy Injection (Triple) completed Sherice Charito [place] [facility] [place] 10/01/2024 10:26:22 5 Allergy Injection (Triple) completed Sherice Charito [place] [facility] [place] 09/24/2024 12:11:26 5 Allergy Injection (Triple) completed Sherice Charito [place] [facility] [place] 09/10/2024 09:49:08 5 Allergy Injection (Triple) completed [...] ICD10 Code Diagnosis IMO Codes Diagnosis Note [id number] Jenny Rodriguez MD [facility] Associate [facility] of [facility] P-2340 8 [facility] [place] [place] [address] 09/03/2024 14:48:31 09/03/2024 15:25:12 Allergic rhinitis caused by pollen 72265403 J30.1 [id number] Patient is here for allergy injections in bilateral arms with no reaction given by [facility]. Patient will return in one week for next injection. [id number] Jenny Rodriguez MD ENT Associate s of [address] [place] [address] 8 09/10/2024 09:03:40 09/10/2024 09:10:54 Allergic rhinitis 94479791 J30.9 [id number] Patient is here for allergy injection in bilateral arms given by [facility]. Patient tolerated injection well and will return in one week for her next injection. [id number] Jenny Rodriguez MD ENT Associate s of [place] [address] 8 09/24/2024 11:14:10 09/24/2024 11:14:40 Allergic rhinitis 30400392 J30.9 [id number] Patient is here for allergy injection in bilateral arms given by [facility]. Patient tolerated injection well and will return in one week for her next injection. [id number] Jenny Rodriguez MD ENT Associate s of [address] [place] [address] 8 10/01/2024 10:18:13 10/01/2024 10:18:27 Allergic rhinitis 95730392 J30.9 [id number] Patient is here for allergy injection in bilateral arms given by [facility]. Patient tolerated injection well and will return in one week for her next injection. [id number] Jenny Rodriguez MD ENT Associate s of [address] [place] [address] 8 10/08/2024 09:47:34 10/08/2024 09:51:02 Allergic rhinitis 29923707 J30.9 [id number] Patient is here for allergy injection in bilateral arms given by [facility]. Patient tolerated injection well and will return in one week for her next injection. [id number] Jenny Rodriguez MD [facility] of [place] - [address] 8 [place] [address] 8 10/15/2024 15:19:10 10/15/2024 15:19:28 Allergic rhinitis 19608908 J30.9 [id number] Patient is here for allergy injection in bilateral arms given by Sherice RAVI. Patient tolerated injection well and will return in one week for her next injection. [id number] Jenny Rodriguez MD [facility] of [place] [address] 6 10/21/2024 12:47:52 10/21/2024 13:51:20 Allergic rhinitis 38008510 J30.9 [id number] Patient here for allergy skin testing. Tested by Moriah Gasca CMA. Patient tolerated test well, please see scanned in document for results. Patient will be continuing allergy injections in [place]. [id number] Jenny Rodriguez MD [facility] of [place] [address] 6 11/11/2024 15:08:41 11/12/2024 08:11:49 Allergic rhinitis caused by pollen 87380785 J30.1 [id number] Jenny Rodriguez MD [facility] Associate [facility] of [place] [address] 8 11/12/2024 15:52:48 11/12/2024 15:53:00 Allergic rhinitis 05475277 J30.9 [id number] Patient here for allergy injection [facility] Patient waited in the office for 10 minutes with no reaction. Patient will return in one week for next injection. [id number] Jenny Rodriguez MD [facility] Associate [facility] of [place] [address] 8 11/26/2024 15:46:45 11/26/2024 15:51:35 Allergic rhinitis 94097706 J30.9 [id number] Patient here for allergy injection given by Sherice RAVI. with no reaction. Patient will return in one week for next injection. [id number] Jenny Rodriguez MD E[facility] Associate [facility] of [place] [address] 8 [facility] [place] [address] 12/10/2024 11:30:29 12/10/2024 11:30:43 Allergic rhinitis 10972052 J30.9 [id number] Patient here for allergy injection given by Sherice Mcneill CCMA. with no reaction. Patient will return in one week for next injection. [id number] Jenny Rodriguez MD ENT Associate [facility] of [place] [address] 8 [facility] [place] [address] 8 12/24/2024 15:45:50 12/24/2024 15:47:04 Allergic rhinitis 73620782 J30.9 [id number] Patient here for allergy injection given by Shericemark Mcneill CCMA. with no reaction. Patient will return in one week for next injection. [id number] Jenny Rodriguez MD [facility] of [facility] [place] [address] 8 12/31/2024 16:07:24 12/31/2024 16:07:37 Allergic rhinitis 09333728 J30.9 [id number] Patient here for allergy injection given by Shericemark Mcneill CCMA. with no reaction. Patient will return in one week for next injection. Health Concerns Section Related Observation LastModified by Organization Detai ls LastModified Time None Recorded Concern Status LastModified by Organization Details LastModified Time None Recorded Advance Directives Directive None Recorded Payers Insurance Date Sequence Insurance Name Policy Number Policy Mccall Covered Member ID Mccall Member ID Guarantor Name 12/31/2024 1 [facility] (MEDICAID HMO) Lenora Jaime [id number] OBGyn Episode No OBEpisode recorded.
--- OUTSIDE RECORDS SUMMARY | 2025-01-10 08:57 | XMS_ITS | Clinical Summary ---
Author Organization [facility] [place] Address [address] [facility] [address] [place] [phone] Phone Care Team Providers Care Screen Room Operator Name Role Phone Unavailable Primary Care Provider [...] azelastine (ASTELIN) 137 mcg (0.1 %) Nasl [place], Non-Aerosol USE 1 TO 2 SPRAY(S) IN EACH NOSTRIL TWICE DAILY Active EPIPEN 0.3 mg/0.3 mL Inj Auto-Injector Take 1 auto as needed by injection route as directed. 5 Active fluticasone propionate (FLONASE) 50 mcg/actuation Nasl [place], Suspension 2 Sprays in each nostril daily. Active Encounters Date Type Department Care Team Description 10/22/2024 11:45 AM EDT Office Visit [facility] [place] [address] [facility] [address] [place] [phone] Tamy Ramos MD Verruca vulgaris (Primary [...] Tdap) 01/17/2022 01/18/2012 COVID-19 Vaccine (1 - 2024-2 6 season) 2024 Influenza Vaccine (#1) 2024 01/18/2012 Meningococcal B Vaccine Aged Out No l onger eligible based on patient's age to complete this topic Pneumococcal Vaccine 0-49 Aged Out No longer eligible based on patient's age to complete this topic Insurance [facility] [id number] [facility]
--- OUTSIDE RECORDS SUMMARY | 2025-01-10 08:57 | XMS_ITS | Clinical Summary ---
Author Organization [facility] Address [address] [place] [address] Care Team Providers Care Set Up Mechanic Heading Machines Name Role Phone Provider, No Known Primary [...] Maintenance Due Date Last Done Comments Annual Gynecologic Pelvic an d Breast Exam 1988 ANNUAL PHYSICAL 11/26/2019 HEPATITIS C SCREENING 11/26/2019 TDAP/TD VACCINES (2 - Td or Tdap) 01/17/2022 012 INFLUENZA VACCINE 10/10/2024 Pneumococcal Vaccine 0-49 Aged Out No longer eligible based on patient's age to complete this topic Insurance ([place]) [id number] PLUS Care Teams Set Up Mechanic Heading Machines Relationship Specialty Start Date End Date Provider, [place] [address] PCP - General 12/02/19
--- OUTSIDE RECORDS SUMMARY | 2025-01-10 08:57 | XMS_ITS | Continuity of Care Document ---
Author Organization [facility] [place] [facility] [place], [facility] - [place] Address [address] [place] [address] Assessment No assessment recorded. Plan of Treatment [...] Recorded Time Allergic rhinitis caused by pollen 60264339 Active 025 Shericemark Mcneill null, [facility] - [facility] & [place] 5 15:39:34 Allergic rhinitis 55968581 Active 025 Shericemark Mcneill null, [facility] - [facility] & [place] 5 09:49:15 Problem Notes None recorded. Procedures Surgical History Date Name Laterality Status Provider Name and Address Organization Details Recorded Time 5 Allergy Injection (Triple) completed Sherice Charito [facility] - [facility] [place] [facility] [place] 12/31/2024 16:19:29 5 Allergy Injection (Triple) completed Sherice Charito [place] [facility] [place] 12/24/2024 16:36:10 5 Allergy Injection (Triple) completed Sherice Charito [place] [facility] [place] [facility] [place] 12/10/2024 12:05:12 5 Allergy Injection (Triple) completed Sherice Charito [place] [facility] [place] [facility] [place] 11/26/2024 16:03:02 5 Allergy Injection (Triple) completed Sherice Charito [place] [facility] [place] [facility] [place] 11/12/2024 16:09:50 5 Allergy Injection (Triple) completed Sherice Charito [place] [facility] [place] [facility] [place] 10/15/2024 15:30:48 5 Allergy Injection (Triple) completed Sherice Charito [place] [facility] [place] 10/08/2024 10:01:50 5 Allergy Injection (Triple) completed Sherice Charito [place] [facility] [place] 10/01/2024 10:26:22 5 Allergy Injection (Triple) completed Sherice Charito [place] [facility] [place] 09/24/2024 12:11:26 5 Allergy Injection (Triple) completed Sherice Charito [place] [facility] [place] 09/10/2024 09:49:08 5 Allergy Injection (Triple) completed Sherice Charito [place] [facility] [place] 09/03/2024 15:37:41 section completed Sherice Chartio [place] [facility] [place] 09/03/2024 15:06:02 Imaging Results None [...] ICD10 Code Diagnosis IMO Codes Diagnosis Note [id number] Jenny Rodriguez MD [facility] Associate [facility] of [facility] [place] [address], [facility] [place] [id number] 10/15/2024 15:19:10 10/15/2024 15:19:28 Allergic rhinitis 01497666 J30.9 [id number] Patient is here for allergy injection in bilateral arms given by Sherice RAVI. Patient tolerated injection well and will return in one week for her next injection. [id number] Jenny Rodriguez MD ENT Assoc [address] [place] [address] 10/21/2024 12:47:52 10/21/2024 13:51:20 Allergic rhinitis 24045918 J30.9 [id number] Patient here for allergy skin testing. Tested by Moriah Gasca CMA. Patient tolerated test well, please see scanned in document for results. Patient will be continuing allergy injections in [place]. [id number] Jenny Rodriguez MD [facility] Assoc of [address] [place] [address] 11/11/2024 15:08:41 11/12/2024 08:11:49 Allergic rhinitis caused by pollen 28922766 J30.1 [id number] Health Concerns Section Related Observation LastModified by Organization Detai ls LastModified Time None Recorded Concern Status LastModified by Organization Details LastModified Time None Recorded Payers Encounter Date Sequence Insurance Name Policy Number Policy Mccall Covered Member ID Mccall Member ID Guarantor Name 11/11/2024 1 [facility] (MEDICAID HMO) Lenora Jaime [id number] OBGyn Episode No OBEpisode recorded.
--- OUTSIDE RECORDS SUMMARY | 2025-01-10 08:58 | XMS_ITS ---
Author Organization Unknown ENCOUNTERS Encounter Performer Location Date Diagnosis Diagnosis Status Pre Admit [facility] [address] [facility] [address] [place] [address] [id number] Emergency [facility] [address] [facility] [address] [place] [address] [id number] ITZEL Pre Admit [facility] [address] [place] [address] [place] [address] [id number] Emergency [facility] [address] [place] [address] [id number] ITZEL Emergency [facility] [address] [place] [address] [place] [address] [id number] ITZEL Pre Admit [facility] [address] [facility] [address] [place] [address] [id number] Emergency Rosalva Meier [facility] [address] [place] [address] [id number] ITZEL Pre Admit Rosalva Meier [facility] [address] [place] [address] [place] [address] [id number] Pre Admit [facility] [address] [place] [address] [id number] Emergency [facility] [address] [place] [address] [id number] ITZEL Emergency [facility] [address] [place] [address] [id number] ITZEL Emergency [facility] [address] [place] [address] [id number] ITZEL Emergency Bijal Echols [facility] [address] [place] [address] [id number] ITZEL Emergency Linda Block [facility] [address] [place] [address] [id number] ITZEL Emergency [facility] [address] [facility] [address] [place] [address] [id number] ITZEL Emergency Robb Raza [facility] [address] [facility] [address] [place] [address] [id number] ITZEL Emergency [facility] [address] [facility] [address] [place] [address] [id number] LWBS [facility] [address] [facility] [address] [place] [address] [id number] ITZEL Emergency Rosalva Branch [facility] [address] [facility] [address] [place] [address] [id number] TIZEL [facility] [address] [facility] [address] [place] [address] [id number] ITZEL Emergency Noe Long [facility] [address] [facility] [address] [place] [address] [id number] ITZEL Emergency Mini Flaherty [facility] [address] [facility] [address] [place] [address] [id number] ITZEL *Note: Encounters from your own facility or health system may be excluded. Allergies, Adverse Reactions, Alerts Allergen Type Severity Identification Date Medications Name Date Quantity Days Supplied GPI Number
--- OUTSIDE RECORDS SUMMARY | 2025-01-10 08:58 | XMS_ITS | Continuity of Care Document ---
Author Organization [facility] & [place], [facility] - P-[address] Address [address] [place] [phone] Assessment No assessment recorded. Plan of Treatment [...] Recorded Time Allergic rhinitis caused by pollen 81450216 Active 025 Shericemark Mcneill null, [place] - [facility] & [place] 5 15:39:34 Allergic rhinitis 04436548 Active 025 Shericemark Mcneill null, [facility] - [facility] & [place] 5 09:49:15 Problem Notes None recorded. Procedures Surgical History Date Name Laterality Status Provider Name and Address Organization Details Recorded Time 5 Allergy Injection (Triple) completed Sherice Charito [place] [facility] [place] 12/31/2024 16:19:29 5 Allergy Injection (Triple) completed Sherice Charito [place] [facility] [place] 12/24/2024 16:36:10 5 Allergy Injection (Triple) completed Sherice Charito [place] [facility] [place] [facility] [place] 12/10/2024 12:05:12 5 Allergy Injection (Triple) completed Sherice Charito [place] [facility] [place] 11/26/2024 16:03:02 5 Allergy Injection (Triple) completed Sherice Charito [place] [facility] [place] 11/12/2024 16:09:50 5 Allergy Injection (Triple) completed Sherice Charito [place] [facility] [place] 10/15/2024 15:30:48 5 Allergy Injection (Triple) completed Sherice Charito [place] [facility] [place] [facility] [place] 10/08/2024 10:01:50 5 Allergy Injection (Triple) completed Sherice Charito [place] [facility] [place] [facility] [place] 10/01/2024 10:26:22 5 Allergy Injection (Triple) completed Sherice Charito [place] [facility] [place] [facility] [place] 09/24/2024 12:11:26 5 Allergy Injection (Triple) completed Sherice Charito [place] [facility] [place] [facility] [place] 09/10/2024 09:49:08 5 Allergy Injection (Triple) completed Sherice Charito [place] [facility] [place] 09/03/2024 15:37:41 section completed Sherice Charito [place] [facility] [place] 09/03/2024 15:06:02 Imaging Results None [...] ICD10 Code Diagnosis IMO Codes Diagnosis Note [id number] Jenny Rodriguez MD ENT Associate [facility] of [facility] [place] [address], [facility] [place] [place] [address] 12/10/2024 11:30:29 12/10/2024 11:30:43 Allergic rhinitis 12529405 J30.9 [id number] Patient here for allergy injection given by Sherice Mcneill CCMA. with no reaction. Patient will return in one week for next injection. [id number] Jenny Rodriguez MD ENT Associate [facility] of [place] [address] [address] [place] [address] 8 12/24/2024 15:45:50 12/24/2024 15:47:04 Allergic rhinitis 66024417 J30.9 [id number] Patient here for allergy injection given by Sherice Mcneill CCMA. with no reaction. Patient will return in one week for next injection. [id number] Jenny Rodriguez MD [facility] of [place] [address] [place] [address] 8 12/31/2024 16:07:24 12/31/2024 16:07:37 Allergic rhinitis 76215059 J30.9 [id number] Patient here for allergy injection [facility] with no reaction. Patient will return in one week for next injection. Health Concerns Section Related Observation LastModified by Organization Detai ls LastModified Time None Recorded Concern Status LastModified by Organization Details LastModified Time None Recorded Payers Encounter Date Sequence Insurance Name Policy Number Policy Mccall Covered Member ID Mccall Member ID Guarantor Name 12/31/2024 1 [facility] (MEDICAID HMO) Lenora Jaime [id number] OBGyn Episode No OBEpisode recorded.
[2025-01-10 10:55] LABS: Free Thyroxine Index 2.6 ug/dL (5.93-13.13); T4 (Thyroxine) 7.9 ug/dl (5.53-11.0); Triiodothryronine (T3) Uptake 33 % (23.5-40.5)
[2025-01-10 11:08] LABS: Thyroid Stimulating Hormone 1.06 uIU/mL (0.465-4.68)
== END 2025-01-10 23:59 | disposition home or self-care (01) ==
LOC: LAB 08:55
PROVIDERS: PCP Nurse Practitioner Family; Visit Provider Nurse Practitioner Family
DX: F41.9 Anxiety disorder, unspecified (principal); F90.9 Attention-deficit hyperactivity disorder, unspecified type
CPT/HCPCS: 36415; 84436; 84443; 84479

== ENCOUNTER 2025-02-04 13:37 | Outpatient (CLI) | payer MEDICAID, SELFPAY ==
--- NOTE | 2025-02-04 13:40 | XR_ITS ---
FINAL REPORT CLINICAL HISTORY: chest congestion x's few weeks, antibiotics not helping condition COMPARISON: 12/09/2024 FINDINGS: PA and lateral views of the chest are obtained. The cardiac and mediastinal silhouettes are within normal limits. The lungs are clear. There is no pleural effusion, pneumothorax, or acute osseous abnormality. IMPRESSION: No radiographic evidence of acute cardiac or pulmonary disease. Reviewed, Interpreted and Dictated by Yeimi Holly MD Transcribed by Brisa Aguilar Authenticated and [facility]
--- OUTSIDE RECORDS SUMMARY | 2025-02-04 13:41 | XMS_ITS | Clinical Summary ---
Author Organization [facility] Address [address] [place] [address] Care Team Providers Care Cryolite Recovery Operator Name Role Phone Provider, No Known [...] patient's age to complete this topic Insurance ([place]) [id number] PL[address] Care Teams Cryolite Recovery Operator Relationship Specialty Start Date End Date Provider, [place] [address] PCP - General 12/02/19
--- OUTSIDE RECORDS SUMMARY | 2025-02-04 13:41 | XMS_ITS | Clinical Summary ---
Author Organization [facility] [place] Address [address] [facility] [address] [place] [phone] Phone Care Team Providers Care Ramp Manager Name Role Phone Unavailable Primary Care [...] azelastine (ASTELIN) 137 mcg (0.1 %) Nasl [place], Non-Aerosol USE 1 TO 2 SPRAY(S) IN EACH NOSTRIL TWICE DAILY Active EPIPEN 0.3 mg/0.3 mL Inj Auto-Injector Take 1 auto as needed by injection route as directed. 5 Active fluticasone propionate (FLONASE) 50 mcg/actuation Nasl [place], Suspension 2 Sprays in each nostril daily. Active Social History Tobacco Use Types Packs/Day Years [...] patient's age to complete this topic Insurance [facility] [place] [id number] [facility]
[2025-02-04 16:49] LABS: Coronavirus 19, PCR Not Detected (NotDetected); Influenza A, PCR Not Detected (NotDetected); Influenza B, PCR Not Detected (NotDetected)
== END 2025-02-04 23:59 | disposition home or self-care (01) ==
LOC: RAD 13:38
PROVIDERS: PCP Nurse Practitioner Family; Visit Provider Nurse Practitioner
DX: J06.9 Acute upper respiratory infection, unspecified (principal); R09.89 Other specified symptoms and signs involving the circulatory and respiratory systems
CPT/HCPCS: 71046; 87631